=== PATIENT | female | born 1940 | race Caucasian/White ===

== ENCOUNTER 2018-03-13 10:43 | Emergency (ER) | payer MEDICARE, SELFPAY ==
[2018-03-13] VITALS (7 sets, daily range): BP systolic 90–156; BP diastolic 60–113; PULSE 80–96; RESP 16–19; TEMP 36.6; O2SAT 95–99
--- NOTE | 2018-03-13 10:49 | DI.RAD.S_ITS ---
PROCEDURE: XR LUMBAR SPINE 2-3V INDICATIONS: fall TECHNIQUE: 3 views of the lumbar spine were acquired. COMPARISON: [facility], , CHEST 1 VIEW, 11/02/2017, 12:07. [facility], , CHEST 2 VIEW, 10/16/2015, 11:47. FINDINGS: Bones: 5 [id number] vertebrae are present. There is a mild to moderate multilevel disc space narrowing throughout the lumbar spine. Significant foraminal narrowing is present at L5-S1. Presumed pain stimulator is noted overlying the lower lumbar spine. There is an approximate 35% compression deformity at L1. This is new compared to 10/16/15. No suspicious bony lesions. Soft tissues: Overlying bowel gas pattern is normal. No suspicious soft tissue calcifications. IMPRESSION: Multilevel degenerative changes. There is an approximate 35% compression deformity of indeterminate age, noting it was not visualized on the most recent prior exam of 10/16/15. Recommend correlation to focal pain and recent trauma. Dictated by: Rhonda Soto M.D. on 03/13/2018 at 11:31 Approved by: Rhonda Soto M.D. on 03/13/2018 at 11:32
--- NOTE | 2018-03-13 11:10 | DI.CT.S_ITS ---
PROCEDURE: CT HEAD/BRAIN WO CON INDICATIONS: fall on pradaxa 2 days ago difficulty walking TECHNIQUE: Noncontrast 4.5 mm thick angled axial sections acquired from the foramen magnum to the vertex, with coronal and sagittal reformats. For radiation dose reduction, the following was used: automated exposure control, adjustment of mA and/or kV according to patient size. COMPARISON: [facility], , STROKE PROTOCOL A, 06/05/2010, 11:30. FINDINGS: Image quality: Diagnostic CSF spaces: Basal cisterns are patent. No extra-axial fluid collections. Ventricles are mildly prominent. There is corresponding mild parenchymal volume loss. Brain: No midline shift. No intracranial masses or hemorrhage. Mejia-white matter interface is normal. Encephalomalacia involving the right frontal lobe is identified, best appreciated along the region of the sylvian fissure. There also is involvement of the right parietal lobe. This correlates with previously seen right MCA distribution infarction. Skull and face: Calvarium and visualized facial bones are intact, without suspicious lesions. Sinuses: Visualized sinuses and mastoids are clear. IMPRESSION: 1. No acute intracranial hemorrhage. 2. 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 3. Mild parenchymal volume loss. Dictated by: William Mcqueen M.D. on 03/13/2018 at 10:24 Approved by: William Mcqueen M.D. on 03/13/2018 at 10:25
[2018-03-13] MEDS: ACETAMINOPHEN 325 MG TABLET 650 MG PO (12:24)
[2018-03-13] MEDS: TRAMADOL 50 MG TABLET PO (12:25)
--- NOTE | 2018-03-13 12:49 | ED.FALL ---
HPI - Fall General Chief Complaint: Fall Stated Complaint: GLF / Back Pain Time Seen by Provider: 03/13/18 10:49 Source: patient, family and EMS Mode of arrival: EMS Limitations: no limitations History of Present Illness HPI Narrative: Patient is a 77-year-old female who presents with weakness and inability to get out of bed. She apparently was on the toilet yesterday when she fell. She was able to ambulate yesterday however this morning she is unable to get out of bed and needed EMS to help her. When she fell yesterday she denies any head injury. She does say that she has tenderness in her midline of her back. She has no numbness or tingling down her legs no changes in bowel or bladder habits. MD complaint: fall Onset (ago): day(s) (1) Location of injury: back Related Data Home Medications Medication Instructions Recorded Confirmed Simvastatin (Zocor) 20 mg PO QPM #0 06/04/10 03/13/18 alendronate [Fosamax] 70 mg PO QWEEK #0 11/02/17 03/13/18 dabigatran etexilate [Pradaxa] 150 mg PO BID #0 11/02/17 03/13/18 levothyroxine [Synthroid] 0.075 mg PO QAM #30 tab 11/02/17 03/13/18 lisinopril 10 mg PO QAM 03/13/18 03/13/18 metformin 500 mg PO BID 03/13/18 03/13/18 Previous Rx's Medication Instructions Recorded carvedilol [Coreg] 25 mg PO BID #60 tab 11/05/17 tramadol 50 mg PO Q4-6H PRN #20 tab 03/13/18 Allergies Allergy/AdvReac Type Severity Reaction Status Date / Time No Known Drug Allergies Allergy Verified 03/13/18 11:44 Review of Systems Review of Systems All systems reviewed & are unremarkable except as noted in HPI and below Constitutional Denies chills, Denies fever(s), Denies lethargy and Denies weakness Eyes Denies loss of vision Cardiovascular Denies chest pain, Denies irregular heart rhythm, Denies lightheadedness, Denies palpitations, Denies dyspnea, Denies dyspnea on exertion and Denies orthopnea Respiratory Denies cough, Denies dyspnea, Denies dyspnea on exertion and Denies wheezing Genitourinary Denies hematuria, Denies flank pain, Denies urinary incontinence and Denies urinary urgency Musculoskeletal Reports system reviewed and no additional complaints, except as docu and Denies numbness Neurologic Denies behavioral changes, Denies confusion, Denies loss of vision, Denies numbness and Denies weakness Psychiatric Denies behavioral changes and Denies confusion Endocrine Denies palpitations Allergic/Immunologic Denies wheezing Exam Initial Vital Signs Initial Vital Signs: Vital Signs Temperature 97.8 F 03/13/18 10:46 Pulse Rate 86 03/13/18 10:46 Respiratory Rate 16 03/13/18 10:46 Blood Pressure 156/113 H 03/13/18 10:46 Pulse Oximetry 96 03/13/18 10:46 Const General: cooperative Nutritional Appearance: well nourished Orientation: alert, awake, oriented x3 and not confused HENMD Head: normal to inspection and normocephalic Nose: external nose normal Face and sinus: normal facial exam Eyes Pupils: PERRL EOM: EOM intact bilaterally Neck Neck: full ROM, no meningeal signs and trachea midline Chest Chest: normal inspection of the chest Resp Effort & Inspection: normal respiratory effort, able to speak in complete sentences, no respiratory distress and no use of accessory muscles Auscultation: clear to auscultation bilaterally, no rales, no rhonchi and no wheezes Cardio Rate: regular rate Rhythm: regular rhythm Heart Sounds: no click, no gallops, no murmurs and no rubs Pulses: normal peripheral pulses Back/Spine/Pelvis Thoracic/Lumbar Spine: lumbar spinal tenderness (Midline L3 through L1) Skin General: no rashes or lesions noted, No jaundice and No petechiae Neuro General: alert, oriented x3, gait normal and no focal motor deficits Speech: speech normal [facility] Social History Smoking Status: Never smoker Course Orders Ordered: Discontinued Medications Acetaminophen (Tylenol) 650 mg PO NOW ONE Stop: 03/13/18 11:58 Last Admin: 03/13/18 12:24 Dose: 650 mg Tramadol HCl (Ultram) 50 mg PO NOW ONE Stop: 03/13/18 11:58 Last Admin: 03/13/18 12:25 Dose: 50 mg Vital Signs - 8 hr 03/13/18 10:46 03/13/18 10:55 03/13/18 11:35 Temperature 97.8 F 97.8 F Pulse Rate 86 83 81 Respiratory Rate 16 16 16 Blood Pressure 156/113 H Blood Pressure [Left Arm] 155/87 H 109/91 H Pulse Oximetry 96 95 96 03/13/18 12:45 Temperature Pulse Rate Respiratory Rate Blood Pressure Blood Pressure [Left Arm] 130/93 H Pulse Oximetry MDM - Fall Imaging Data CT scan - head: Radiologist's impression: PROCEDURE: CT HEAD/BRAIN WO CON INDICATIONS: fall on pradaxa 2 days ago difficulty walking TECHNIQUE: Noncontrast 4.5 mm thick angled axial sections acquired from the foramen magnum to the vertex, with coronal and sagittal reformats. For radiation dose reduction, the following was used: automated exposure control, adjustment of mA and/or kV according to patient size. COMPARISON: [facility], , STROKE PROTOCOL A, 06/05/2010, 11:30. FINDINGS: Image quality: Diagnostic CSF spaces: Basal cisterns are patent. No extra-axial fluid collections. Ventricles are mildly prominent. There is corresponding mild parenchymal volume loss. Brain: No midline shift. No intracranial masses or hemorrhage. Mejia-white matter interface is normal. Encephalomalacia involving the right frontal lobe is identified, best appreciated along the region of the sylvian fissure. There also is involvement of the right parietal lobe. This correlates with previously seen right MCA distribution infarction. Skull and face: Calvarium and visualized facial bones are intact, without suspicious lesions. Sinuses: Visualized sinuses and mastoids are clear. IMPRESSION: 1. No acute intracranial hemorrhage. 2. 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 3. Mild parenchymal volume loss. Dictated by: William Mcqueen M.D. on 03/13/2018 at 10:24 lumbar x ray: Radiologist's impression: PROCEDURE: XR LUMBAR SPINE 2-3V INDICATIONS: fall TECHNIQUE: 3 views of the lumbar spine were acquired. COMPARISON: [facility], , CHEST 1 VIEW, 11/02/2017, 12:07. [facility], , CHEST 2 VIEW, 10/16/2015, 11:47. FINDINGS: Bones: 5 [id number] vertebrae are present. There is a mild to moderate multilevel disc space narrowing throughout the lumbar spine. Significant foraminal narrowing is present at L5-S1. Presumed pain stimulator is noted overlying the lower lumbar spine. There is an approximate 35% compression deformity at L1. This is new compared to 10/16/15. No suspicious bony lesions. Soft tissues: Overlying bowel gas pattern is normal. No suspicious soft tissue calcifications. IMPRESSION: Multilevel degenerative changes. There is an approximate 35% compression deformity of indeterminate age, noting it was not visualized on the most recent prior exam of 10/16/15. Recommend correlation to focal pain and recent trauma. Dictated by: Rhonda Soto M.D. on 03/13/2018 at 11:31 MDM Narrative Medical decision making narrative: Patient does require should help sitting up hour when she is up she is able to ambulate with a walker without any difficulty. On I suspect that compression fracture noted on x-ray is new from her fall. She is tender in that area. Her pain improved some with tramadol and Toradol. Discharge Plan Departure Patient Disposition: Home, Self-Care Clinical Impression: Compression fracture Discharge Date/Time: 03/13/18 16:11 Interventions: ED Discharge Assessment Last Done: 03/13/18 16:10 Instructions: Vertebral Compression Fracture Activity Restrictions/Additional Instructions: *You have been diagnosed with vertebral compression fracture *What to do: This will take time to heal. Walk with a walker at all times, may need to sleep in a recliner. *Continue to take medications as directed -tramadol 50 mg every 6 hr if needed for severe pain -Tylenol 500-650 mg every 4-6 hours if needed for [id number]-[id number] pain *Follow up with your primary care provider in 2-3 days, [facility] should still be your physician and help you through the call Orthopedics to schedule follow-up appointment in 1-2 weeks *Return to ER if you should have numbness, tingling, increasing pain or any new, worsening or concerning symptoms Prescriptions: New tramadol 50 mg tablet 50 mg PO Q4-6H PRN (Reason: pain) Qty: 20 RF: 0 No Action Simvastatin (Zocor) 20 mg PO QPM Qty: 0 RF: 0 dabigatran etexilate [Pradaxa] 150 MG capsule 150 mg PO BID Qty: 0 RF: 0 alendronate [Fosamax] 70 MG tablet 70 mg PO QWEEK Qty: 0 RF: 0 levothyroxine [Synthroid] 75 MCG tablet 0.075 mg PO QAM Qty: 30 RF: 0 carvedilol [Coreg] 25 MG tablet 25 mg PO BID Qty: 60 RF: 5 metformin 500 mg tablet 500 mg PO BID RF: 0 lisinopril 10 mg tablet 10 mg PO QAM RF: 0 Referrals: [facility] [Outside] Tariq Davison MD [Primary Care Provider] - Derrick Dooley MD [Physician] - Buddy Cr MD [Physician] - Dionicio Galarza MD [Physician] - Elizabeth Root MD [Physician] -
== END 2018-03-13 16:11 | disposition home or self-care (01) ==
PROVIDERS: Emergency Provider Emergency Medicine; Family Provider Internal Medicine; PCP Internal Medicine
DX: S32.000A Wedge compression fracture of unspecified lumbar vertebra, initial encounter for closed fracture (principal); W18.11XA Fall from or off toilet without subsequent striking against object, initial encounter
CPT/HCPCS: 70450; 72100; 99283

== ENCOUNTER 2018-03-22 13:53 | Inpatient (IN) | payer MEDICARE, SELFPAY ==
[2018-03-22] VITALS (7 sets, daily range): BP systolic 103–135; BP diastolic 66–84; PULSE 75–105; RESP 16–18; TEMP 36.4–36.8; O2SAT 93–96; BMI 33.3; BMI 32.7
--- NOTE | 2018-03-22 14:43 | DI.RAD.S_ITS ---
PROCEDURE: XR SHOULDER RT MIN 2V INDICATIONS: fell on 03/13- possible R shoulder injury TECHNIQUE: 3 views of the shoulder were acquired. COMPARISON: [facility], , CHEST 1 VIEW, 11/02/2017, 12:07. FINDINGS: Bones: Possible right humeral neck fracture of uncertain chronicity may be non-acute. No dislocations. Mild degenerative joint disease of the acromioclavicular joint and glenohumeral joint. is present. There is prominent inferior osteophyte underneath the acromion. No suspicious bony lesions. Visualized ribs appear intact. Soft tissues: No suspicious soft tissue calcifications. IMPRESSION: 1. Possible right humeral neck fracture of uncertain chronicity. 2. Mild degenerative joint disease. 3. Large inferior osteophyte underneath the acromion, which could impinge to rotator cuff tendons. Dictated by: Will Moseley M.D. on 03/22/2018 at 15:34 Approved by: Will Moseley M.D. on 03/22/2018 at 15:37
--- NOTE | 2018-03-22 15:37 | PC.NURSE ---
DR Garcia to see pt as wants admission or sent to [facility] today
--- NOTE | 2018-03-22 15:47 | ED_ITS ---
HPI - Back Pain/Injury General Chief Complaint: Back Pain/Injury Stated Complaint: CRUSHED VERTEBRAE Time Seen by Provider: 03/22/18 15:36 Source: patient and family Mode of arrival: wheelchair Limitations: no limitations History of Present Illness HPI Narrative: 78-year-old female on Pradaxa for history of a CVA with residual left-sided weakness seen here in the emergency department approximately 10 days ago after she sustained a fall off the toilet. At that time had a head CT which was normal. Had a lumbar spine x-ray which showed an L1 compression fracture and according to the emergency physician note was painful over this area and was concerned for an acute fracture. Patient was given tramadol for home. Was discharged home. Family at bedside states that since then the patient has become more altered. Has become less mobile. States that she cannot stand cannot transition from lying in bed to sitting has had more back pain and has had less mobility in her right shoulder. No further falls since this event 10 days ago per report. No other new medications except for the tramadol. Related Data Home Medications Medication Instructions Recorded Confirmed Simvastatin (Zocor) 20 mg PO QPM #0 06/04/10 03/13/18 alendronate [Fosamax] 70 mg PO QWEEK #0 11/02/17 03/13/18 dabigatran etexilate [Pradaxa] 150 mg PO BID #0 11/02/17 03/13/18 levothyroxine [Synthroid] 0.075 mg PO QAM #30 tab 11/02/17 03/13/18 lisinopril 10 mg PO QAM 03/13/18 03/13/18 metformin 500 mg PO BID 03/13/18 03/13/18 Previous Rx's Medication Instructions Recorded carvedilol [Coreg] 25 mg PO BID #60 tab 11/05/17 tramadol 50 mg PO Q4-6H PRN #20 tab 03/13/18 Allergies Allergy/AdvReac Type Severity Reaction Status Date / Time No Known Drug Allergies Allergy Verified 03/22/18 14:13 Review of Systems Constitutional Denies chills, Reports fatigue, Denies fever(s), Denies frequent falls, Denies headache(s) and Reports lethargy Eyes Denies blurry vision and Denies diplopia ENT Ears, Nose, Mouth, and Throat: Denies vertigo, Denies dizziness, Denies headache (s), Denies mouth lesions, Denies nasal congestion and Denies sore throat Cardiovascular Denies chest pain, Denies syncope, Denies palpitations and Denies dyspnea Respiratory Denies cough, Denies dyspnea and Denies wheezing Gastrointestinal Gastrointestinal: Denies heartburn, Denies diarrhea, Denies nausea and Denies vomiting Genitourinary Reports urinary frequency Comments: Musculoskeletal Reports arthralgias (Right shoulder) and Reports limited range of motion Comments: Pain in the right shoulder with limited movement Pain in her mid lower back Increase in weakness left greater than right however bilateral lower extremities Integumentary/Breasts Denies lesions, Denies rash and Denies wounds Neurologic Denies abnormal movements, Denies abnormal speech, Reports behavioral changes, Reports confusion, Denies vertigo, Denies dizziness, Denies syncope, Denies frequent falls, Denies headache(s), Denies focal weakness and Reports memory loss Psychiatric Reports behavioral changes, Reports confusion and Reports memory loss Endocrine Reports fatigue and Denies palpitations Hematologic/Lymphatic Reports easy bleeding (On Pradaxa) Allergic/Immunologic Denies urticaria and Denies wheezing Exam Initial Vital Signs Initial Vital Signs: Vital Signs Temperature 98.2 F 03/22/18 14:08 Pulse Rate 105 H 03/22/18 14:08 Respiratory Rate 16 03/22/18 14:08 Blood Pressure 103/66 03/22/18 14:08 Pulse Oximetry 95 03/22/18 14:08 Const General: cooperative, healthy appearing, comfortable, well developed, well groomed and No acute distress Nutritional Appearance: average body habitus Orientation: alert, awake, oriented to person, not oriented to place, not oriented to time and confused (Does not know president, does not know year,) [facility] Head: normal to inspection, normocephalic and atraumatic Ears: hearing grossly normal bilaterally Face and sinus: normal facial exam Mouth: oral mucosae normal Resp Effort & Inspection: normal respiratory effort Auscultation: clear to auscultation bilaterally Cardio Rate: tachycardic Rhythm: regular rhythm Pulses: radial pulses present and dorsalis pedis present GI Inspection: non-distended Palpation: soft, No firm and No guarding Skin Lesions: no lesions Rashes: no rashes Wounds: no wounds Neuro General: alert and awake Speech: speech normal Other: Alert and oriented to person and date does not know present and does not know year does not know location does not know why she is here Moves all 4 extremities to command GCS 15 Sensation intact to light touch bilateral upper and lower extremities Extrem Other: Right elbow right wrist unremarkable Patient with limited mobility of her right shoulder in flexion extension and abduction secondary to pain Patient with tenderness to palpation over the right proximal humerus Patient able to lift her right leg off the bed approximately 4 in in hold it there Patient able to lift her left leg off the bed approximately 1 in in unable to hold it. Family states she is normally more weak on the left compared to the right but this is worse than normal Course Orders Ordered: ED Orders 03/22/18 14:43 XR shoulder RT min 2V Stat 03/22/18 16:27 CT head/brain wo con Stat CT lumbar spine wo con Stat 03/22/18 16:35 Basic Metabolic Panel Stat Complete Blood Count AUTO DIFF Stat Partial Thromboplastin Time Stat Prothrombin Time INR Stat 03/22/18 17:00 Urinalysis and Microscopic Stat Urine Culture Stat 03/22/18 18:35 Consult to Orthopedic Surgery Routine Consult to Physician Routine Ondansetron HCl (Zofran) 4 mg IV Q4HR PRN PRN Reason: Nausea And Vomiting Discontinued Medications Ceftriaxone Sodium/Dextrose (Rocephin) 1 gm in 50 mls @ 100 mls/hr IV NOW ONE Stop: 03/22/18 18:03 Last Infusion: 03/22/18 18:34 Dose: 0 mls/hr Admin: 03/22/18 18:04 Dose: 100 mls/hr Vital Signs - 8 hr 03/22/18 14:08 03/22/18 16:31 03/22/18 18:30 Temperature 98.2 F 97.6 F 98.2 F Pulse Rate 105 H 86 75 Respiratory Rate 16 18 18 Blood Pressure 103/66 Blood Pressure [Left Arm] 105/74 135/70 H Pulse Oximetry 95 93 96 MDM - Back Pain/Injury Lab Data Attestation: I reviewed the patient's lab results. Result diagrams: 03/22/18 16:35 03/22/18 16:35 Lab Results 03/22/18 03/22/18 03/22/18 Range/Units 16:35 16:35 16:35 WBC 8.7 (4.5-11.0) X10^3/uL RBC 4.23 (4.0-5.2) X10^6/uL Hgb 13.0 (12.0-16.0) g/dL Hct 38.8 (36-46) % MCV 91.6 (80-100) fL MCH 30.6 (26-34) PG MCHC 33.4 (30-36) % RDW 13.7 (11.6-14.8) % Plt Count 363 (150-400) X10^3/uL Neut % (Auto) 71.7 (50-75) % Lymph % (Auto) 19.5 L (25-40) % [place] % (Auto) 7.0 (3-14) % Eos % (Auto) 1.4 L (2-4) % Baso % (Auto) 0.4 (0-2) % Neut # (Auto) 6200 H (5043-2698) /uL PT 19.1 H (10.1-12.7) SECONDS INR 1.8 H (0.9-1.3) APTT 58 H (26.4-36.2) SECONDS Sodium 139 (137-145) mmol/L Potassium 4.5 (3.4-5.1) mmol/L Chloride 100 (98-107) mmol/L Carbon Dioxide 29 (22-32) mmol/L BUN 16 (7-17) mg/dL Creatinine 0.70 (0.52-1.04) mg/dL Estimated GFR > 60.0 (>60) mL/min BUN/Creatinine Ratio 22.9 H (6-22) Glucose 104 (80-110) mg/dL Calcium 9.2 (8.4-10.2) mg/dL Urine Color Urine Appearance Urine pH (4.5-8.0) Ur Specific [place] (1.000-1.035) Urine Protein (Negative) Urine Glucose (UA) (Normal) g/dL Urine Ketones (NEGATIVE) Urine Occult Blood (Negative) Urine Nitrate (Negative) Urine Bilirubin (NEGATIVE) Urine Urobilinogen (0.2) E.U./dL Ur Leukocyte Esterase (NEGATIVE) Urine RBC (0-5/HPF) Urine WBC (0-5/HPF) Urine Bacteria (None) Ur Culture Indicated? Micro UA Comment 03/22/18 Range/Units 17:00 WBC (4.5-11.0) X10^3/uL RBC (4.0-5.2) X10^6/uL Hgb (12.0-16.0) g/dL Hct (36-46) % MCV (80-100) fL MCH (26-34) PG MCHC (30-36) % RDW (11.6-14.8) % Plt Count (150-400) X10^3/uL Neut % (Auto) (50-75) % Lymph % (Auto) (25-40) % [place] % (Auto) (3-14) % Eos % (Auto) (2-4) % Baso % (Auto) (0-2) % Neut # (Auto) (7087-9776) /uL PT (10.1-12.7) SECONDS INR (0.9-1.3) APTT (26.4-36.2) SECONDS Sodium (137-145) mmol/L Potassium (3.4-5.1) mmol/L Chloride (98-107) mmol/L Carbon Dioxide (22-32) mmol/L BUN (7-17) mg/dL Creatinine (0.52-1.04) mg/dL Estimated GFR (>60) mL/min BUN/Creatinine Ratio (6-22) Glucose (80-110) mg/dL Calcium (8.4-10.2) mg/dL Urine Color Yellow Urine Appearance Turbid Urine pH 5.0 (4.5-8.0) Ur Specific [place] 1.015 (1.000-1.035) Urine Protein 2+ H (Negative) Urine Glucose (UA) Negative (Normal) g/dL Urine Ketones Trace H (NEGATIVE) Urine Occult Blood 2+ H (Negative) Urine Nitrate Negative (Negative) Urine Bilirubin Negative (NEGATIVE) Urine Urobilinogen 0.2 (0.2) E.U./dL Ur Leukocyte Esterase 2+ H (NEGATIVE) Urine RBC 30-100/hpf H (0-5/HPF) Urine WBC >100/hpf H (0-5/HPF) Urine Bacteria Many (>30) H (None) Ur Culture Indicated? Specimen cultured Micro UA Comment Not Reportable Imaging Data Lumbar spine CT: Radiologist's impression: PROCEDURE: CT LUMBAR SPINE WO CON INDICATIONS: Fall W/lumbar spine fracture, worsening LE weak TECHNIQUE: Noncontrast 3 mm thick sections acquired from the T12 level to the sacrum. Sagittal and coronal reformats were constructed. For radiation dose reduction, the following was used: automated exposure control. COMPARISON: [facility], CR, XR LUMBAR SPINE 2-3V, 03/13/2018, 10:50. FINDINGS: Image quality: Excellent. Bones: There is normal bony alignment. There is acute severe vertebral body compression fracture involving L1, increasing in severity compared to the lumbar spine x- ray dated 03/13/2018. No suspicious lytic or blastic bony lesions. Mild degenerative disc disease and moderate to severe facet arthropathy lumbar spine. Central spinal caliber is of normal overall caliber. No pars defects. Soft tissues: No retroperitoneal masses. Mild prevertebral soft tissue thickening anterior to L1 is consistent with small paravertebral hematoma. Visualized aorta is normal in caliber, which demonstrates severe atherosclerosis. There are multiple gallstones. Scant colonic diverticula. Bladder wall appears mildly thickened but the bladder is not fully distended. Bibasilar atelectasis. IMPRESSION: 1. Acute severe vertebral body compression fracture of L1, increased in since . There is no significant posterior displacement. 2. Mild prevertebral soft tissue thickening is consistent with small paravertebral hematoma. 3. Cholelithiasis. 4. Severe atherosclerosis. Dictated by: Will Moseley M.D. on 03/22/2018 at 17:11 CT scan - head: Radiologist's impression: PROCEDURE: CT HEAD/BRAIN WO CON INDICATIONS: On Pradaxa fall several days ago worsening confusion TECHNIQUE: Noncontrast 4.5 mm thick angled axial sections acquired from the foramen magnum to the vertex, with coronal and sagittal reformats. For radiation dose reduction, the following was used: automated exposure control, adjustment of mA and/or kV according to patient size. COMPARISON: [facility], CT, CT HEAD/BRAIN WO CON, 03/13/2018, 11:02. FINDINGS: Image quality: Significant motion artifacts are present. CSF spaces: Basal cisterns are patent. No extra-axial fluid collections. The ventricles are symmetric in size and shape. Brain: Large right MCA infarct appears unchanged. No intracranial bleeds or masses. There is cerebral volume loss for age, with resultant ventricular and sulcal prominence. There are periventricular and deep white matter chronic small vessel ischemic changes. There is intracranial internal carotid artery atherosclerosis. Skull and face: Calvarium and visualized facial bones appear intact, without suspicious lesions. Sinuses: Visualized sinuses and mastoids are clear. IMPRESSION: 1. No acute intracranial abnormalities. 2. Large right MCA infarct appears unchanged. 3. Cerebral volume loss and chronic microvascular ischemic changes. Dictated by: Will Moseley M.D. on 03/22/2018 at 17:09 Approved by: Will Moseley M.D. on 03/22/2018 at 17:11 Right shoulder x-ray: Radiologist's impression: PROCEDURE: XR SHOULDER RT MIN 2V INDICATIONS: fell on 03/13- possible R shoulder injury TECHNIQUE: 3 views of the shoulder were acquired. COMPARISON: [facility], , CHEST 1 VIEW, 11/02/2017, 12:07. FINDINGS: Bones: Possible right humeral neck fracture of uncertain chronicity may be non- acute. No dislocations. Mild degenerative joint disease of the acromioclavicular joint and glenohumeral joint. is present. There is prominent inferior osteophyte underneath the acromion. No suspicious bony lesions. Visualized ribs appear intact. Soft tissues: No suspicious soft tissue calcifications. IMPRESSION: 1. Possible right humeral neck fracture of uncertain chronicity. 2. Mild degenerative joint disease. 3. Large inferior osteophyte underneath the acromion, which could impinge to rotator cuff tendons. Dictated by: Will Moseley M.D. on 03/22/2018 at 15:34 Approved by: Will Moseley M.D. on 03/22/2018 at 15:37 MDM Narrative Medical decision making narrative: Secondary to the decreased mental status over the past 10 days that feel that the tramadol that she was sent home may be a part of this. She also has signs of a urinary tract infection on the urinalysis. She was given Rocephin here in the emergency department. This could also be contributing to her altered mental status. Repeat head CT does not show any changes from the 1 done 10 days ago. L1 spinal compression fracture worsening compared to x-ray from 10 days ago. Patient is unable to transition from lying to sitting or sitting to standing unable to ambulate at home and unable to move her left lower extremity that is worsening according to family over the past 10 days. She has no bowel or bladder incontinence. Is able to flex and extend her ankles however left side is weaker than the right side. Discussed case with Dr. Galarza with Internal Medicine who will admit. I did discuss the case with Dr. Saha with Orthopedics who will evaluate the patient tomorrow. Informed the patient and the family of the admission. They expressed understanding and agreement with plan. Discharge Plan Departure Patient Disposition: Admitted As Inpatient Clinical Impression: Closed compression fracture of L1 lumbar vertebra, Urinary tract infection, Acute alteration in mental status, Closed right humeral fracture
--- NOTE | 2018-03-22 16:02 | PC.NURSE ---
Attempt for IV x2. Unsuccessful.
--- NOTE | 2018-03-22 16:27 | DI.CT.S_ITS ---
PROCEDURE: CT HEAD/BRAIN WO CON INDICATIONS: On Pradaxa fall several days ago worsening confusion TECHNIQUE: Noncontrast 4.5 mm thick angled axial sections acquired from the foramen magnum to the vertex, with coronal and sagittal reformats. For radiation dose reduction, the following was used: automated exposure control, adjustment of mA and/or kV according to patient size. COMPARISON: [facility], CT, CT HEAD/BRAIN WO CON, 03/13/2018, 11:02. FINDINGS: Image quality: Significant motion artifacts are present. CSF spaces: Basal cisterns are patent. No extra-axial fluid collections. The ventricles are symmetric in size and shape. Brain: Large right MCA infarct appears unchanged. No intracranial bleeds or masses. There is cerebral volume loss for age, with resultant ventricular and sulcal prominence. There are periventricular and deep white matter chronic small vessel ischemic changes. There is intracranial internal carotid artery atherosclerosis. Skull and face: Calvarium and visualized facial bones appear intact, without suspicious lesions. Sinuses: Visualized sinuses and mastoids are clear. IMPRESSION: 1. No acute intracranial abnormalities. 2. Large right MCA infarct appears unchanged. 3. Cerebral volume loss and chronic microvascular ischemic changes. Dictated by: Will Moseley M.D. on 03/22/2018 at 17:09 Approved by: Will Moseley M.D. on 03/22/2018 at 17:11
--- NOTE | 2018-03-22 16:27 | DI.CT.S_ITS ---
PROCEDURE: CT LUMBAR SPINE WO CON INDICATIONS: Fall W/lumbar spine fracture, worsening LE weak TECHNIQUE: Noncontrast 3 mm thick sections acquired from the T12 level to the sacrum. Sagittal and coronal reformats were constructed. For radiation dose reduction, the following was used: automated exposure control. COMPARISON: [facility], CR, XR LUMBAR SPINE 2-3V, 03/13/2018, 10:50. FINDINGS: Image quality: Excellent. Bones: There is normal bony alignment. There is acute severe vertebral body compression fracture involving L1, increasing in severity compared to the lumbar spine x-ray dated 03/13/2018. No suspicious lytic or blastic bony lesions. Mild degenerative disc disease and moderate to severe facet arthropathy lumbar spine. Central spinal caliber is of normal overall caliber. No pars defects. Soft tissues: No retroperitoneal masses. Mild prevertebral soft tissue thickening anterior to L1 is consistent with small paravertebral hematoma. Visualized aorta is normal in caliber, which demonstrates severe atherosclerosis. There are multiple gallstones. Scant colonic diverticula. Bladder wall appears mildly thickened but the bladder is not fully distended. Bibasilar atelectasis. IMPRESSION: 1. Acute severe vertebral body compression fracture of L1, increased in since 03/13/2018. There is no significant posterior displacement. 2. Mild prevertebral soft tissue thickening is consistent with small paravertebral hematoma. 3. Cholelithiasis. 4. Severe atherosclerosis. Dictated by: Will Moseley M.D. on 03/22/2018 at 17:11 Approved by: Will Moseley M.D. on 03/22/2018 at 17:20
[2018-03-22 16:44] LABS: Add Manual Diff / Slide Review NO; Basophils Percent Auto 0.4 % (0-2); Eosinophils Percent Auto 1.4 % (2-4); Hematocrit 38.8 % (36-46); Lymphocytes Percent Auto 19.5 % (25-40); Mean Corpuscular HGB Conc 33.4 % (30-36); Mean Corpuscular Hemoglobin 30.6 PG (26-34); Mean Corpuscular Volume 91.6 fL (80-100); Neutrophils Absolute Auto 6200 /uL (3000-5900); Neutrophils Percent Auto 71.7 % (50-75); Platelet Count 363 X10^3/uL (150-400); Red Blood Cell Count 4.23 X10^6/uL (4.0-5.2); Red Cell Distribution Width 13.7 % (11.6-14.8); White Blood Cell Count 8.7 X10^3/uL (4.5-11.0)
[2018-03-22 16:53] LABS: INR 1.8 (0.9-1.3); Prothrombin Time 19.1 SECONDS (10.1-12.7)
[2018-03-22 16:55] LABS: PTT Partial Thromboplastin Tim 58 SECONDS (26.4-36.2)
[2018-03-22 16:57] LABS: BUN Creatinine Ratio 22.9 (6-22); Blood Urea Nitrogen 16 mg/dL (7-17); Calcium 9.2 mg/dL (8.4-10.2); Carbon Dioxide 29 mmol/L (22-32); Chloride 100 mmol/L (98-107); Estimated Glomerular Filt Rate > 60.0 mL/min (>60); Glucose 104 mg/dL (80-110); HEMOLYSIS < 15 (0-50); Potassium 4.5 mmol/L (3.4-5.1); Sodium 139 mmol/L (137-145)
[2018-03-22 17:10] LABS: Appearance Urine UA TURBID; Bilirubin Urine UA NEGATIVE (NEGATIVE); Color Urine UA YELLOW; Glucose Urine UA NEGATIVE (Normal); Ketones Urine UA TRACE (NEGATIVE); Leukocyte Esterase Urine UA 2+ (NEGATIVE); Nitrite Urine UA Negative (Negative); Occult Blood Urine UA 2+ (Negative); Protein Urine UA 2+ (Negative); Specific Gravity Urine UA 1.015 (1.000-1.035); Urobilinogen Urine UA 0.2 E.U./dL (0.2)
[2018-03-22 17:24] LABS: Bacteria Urine Many (>30); Culture Indicated Urine Specimen Cultured; RBC Urine 30-100/HPF (0-5/HPF); WBC Urine >100/HPF (0-5/HPF)
[2018-03-22] MEDS: CEFTRIAXONE 1 GM/50 ML FROZ.PIGGY IV (18:04)
--- NOTE | 2018-03-22 18:22 | PC.NURSE ---
Pt hx of cva. Family states she uses her rt arm for transfers and has had worsening pain when using.
--- NOTE | 2018-03-22 18:43 | PC.NURSE ---
Took PM meds
--- NOTE | 2018-03-22 19:30 | PM.CN ---
History of Present Illness Chief complaint: CRUSHED VERTEBRAE Reason for consult: L1 compression fracture, intractable pain. R proximal humerus fracture Requesting provider: Dionicio Galarza Narrative: 78 yo F with a PMH significant for a R MCA stroke (L sided weakness) on pradaxa presents with intractable back pain. She had a fall off a toilet 03/13 and was seen in ER and diagnosis with a L1 comp fx. She was dc'd home but per family has been getting worse with uncontrolled pain and increased weakness adn difficulty sitting up or standing. pain is better controlled lying down. On Imaging 03/22 she was found to have progression of her L1 compression fracture as well as a R proximal humerus fx of unknown age-but likely occurred 2 weeks ago with her fall-as the patient states it has been bothering her for about that long-she does endorse that she has always had decreased range of motion the right shoulder compared to the left. She also had a acute UTI. She was admitted to Internal Medicine for pain control and orthopedic surgery was consulted regarding management. REPLACED BY [facility] Medical History A-fib (Chronic) Diabetes (Chronic) High cholesterol (Chronic) History of hysterectomy (Chronic) History of thyroidectomy (Chronic) Hypertension (Chronic) Osteoporosis (Chronic) Stroke (Chronic) Deep venous thrombosis (DVT) of both peroneal veins (Resolved) Surgical History Hx of tonsillectomy (Chronic) Social History household members: spouse Smoking Status: Never smoker alcohol intake: never Meds Home Medications Medication Instructions Recorded Confirmed Type simvastatin 20 mg PO QPM #0 06/04/10 03/22/18 History alendronate [Fosamax] 70 mg PO QWEEK #0 11/02/17 03/22/18 History dabigatran etexilate [Pradaxa] 150 mg PO BID #0 11/02/17 03/22/18 History levothyroxine [Synthroid] 0.075 mg PO QAM #30 tab 11/02/17 03/22/18 History carvedilol [Coreg] 25 mg PO BID #60 tab 11/05/17 03/22/18 Rx lisinopril 10 mg PO QAM 03/13/18 03/22/18 History metformin 500 mg PO BID 03/13/18 03/22/18 History tramadol 50 mg PO Q4-6H PRN #20 tab 03/13/18 03/22/18 Rx Allergies Allergy/AdvReac Type Severity Reaction Status Date / Time No Known Drug Allergies Allergy Verified 03/22/18 14:13 Review of Systems Review of Systems Review of systems somewhat difficult due to patient recollection. She does endorse musculoskeletal pain and back pain somewhere between 2 and 4 weeks and shoulder pain approximately 2 weeks. She states she had 1 fall approximately 2 weeks ago. She denies any numbness or tingling denies nausea vomiting fever or chills. However the 3rd notes that apparently the patient has been more confused lately according to family possibly due to pain medication. Does endorse increased urinary frequency. Remainder review of systems unremarkable Exam Vital Signs (past 8 hours): - 03/22/18 14:08 03/22/18 16:31 03/22/18 18:30 Temperature 98.2 F 97.6 F 98.2 F Pulse Rate 105 H 86 75 Respiratory Rate 16 18 18 Blood Pressure 103/66 Blood Pressure [Left Arm] 105/74 135/70 H Pulse Oximetry 95 93 96 Oxygen Delivery Method Room Air Narrative Exam Narrative: General examination: Patient is alert and conversant, mild confusion. Appears comfortable in bed. No complaints this morning. States pain is improved with medication. HEENT exam: Normocephalic atraumatic Respiratory exam: Nonlabored on room air, lungs clear to auscultation Heart: Irregular rate and rhythm Abdomen: Soft nontender Musculoskeletal: Left upper extremity- painless normal shoulder range of motion with forward flexion above 90? in bed. 5/5 shoulder flexion biceps flexion and triceps. Sensation intact to light touch actually radial median ulnar nerves. 5/5 instructor psychiatric aide strength Right upper extremity: Mild pain with palpation around the humeral head and neck. Patient demonstrates forward flexion approximately 80?. Able to externally rotate 45 deg, full elbow flexion and extension 5/5 biceps and triceps strength. 5/5 wrist extension and wrist flexion and instructor psychiatric aide strength. Sensation intact axillary radial ulnar median nerves. Palpable radial pulse. Bilateral lower extremity: Demonstrates good strength with knee flexion and knee extension dorsiflexion plantar flexion mild edema bilateral lower extremities. Palpable dorsalis pedis pulse. Sensation grossly intact to light touch. Negative straight leg raise bilaterally. Spine examination: Mild tenderness to palpation midline at the lumbar thoracic junction. Objective Imaging ct scan L spine: My impression: L1 compression fracture, approximately 50% height loss, no significant retropulsion. calcification at aorta Radiologist's impression: IMPRESSION: 1. Acute severe vertebral body compression fracture of L1, increased in since 03/13/2018. There is no significant posterior displacement. 2. Mild prevertebral soft tissue thickening is consistent with small paravertebral hematoma. 3. Cholelithiasis. 4. Severe atherosclerosis. XR R shoulder: My impression: Right proximal humerus fracture, unclear acuity. nondisplaced. degenerative changes and spurring acromion Radiologist's impression: IMPRESSION: 1. Possible right humeral neck fracture of uncertain chronicity. 2. Mild degenerative joint disease. 3. Large inferior osteophyte underneath the acromion, which could impinge to rotator cuff tendons. Dictated by: Will Moseley M.D. on 03/22/2018 at 15:34 Labs Result Diagrams: 03/22/18 16:35 03/22/18 16:35 Labs: Laboratory Results - last 24 hr 03/22/18 03/22/18 03/22/18 16:35 16:35 16:35 WBC 8.7 RBC 4.23 Hgb 13.0 Hct 38.8 MCV 91.6 MCH 30.6 MCHC 33.4 RDW 13.7 Plt Count 363 Neut % (Auto) 71.7 Lymph % (Auto) 19.5 L [place] % (Auto) 7.0 Eos % (Auto) 1.4 L Baso % (Auto) 0.4 Neut # (Auto) 6200 H PT 19.1 H INR 1.8 H APTT 58 H Sodium 139 Potassium 4.5 Chloride 100 Carbon Dioxide 29 BUN 16 Creatinine 0.70 Estimated GFR > 60.0 BUN/Creatinine Ratio 22.9 H Glucose 104 Calcium 9.2 Urine Color Urine Appearance Urine pH Ur Specific [place] Urine Protein Urine Glucose (UA) Urine Ketones Urine Occult Blood Urine Nitrate Urine Bilirubin Urine Urobilinogen Ur Leukocyte Esterase Urine RBC Urine WBC Urine Bacteria Ur Culture Indicated? Micro UA Comment 03/22/18 17:00 WBC RBC Hgb Hct MCV MCH MCHC RDW Plt Count Neut % (Auto) Lymph % (Auto) [place] % (Auto) Eos % (Auto) Baso % (Auto) Neut # (Auto) PT INR APTT Sodium Potassium Chloride Carbon Dioxide BUN Creatinine Estimated GFR BUN/Creatinine Ratio Glucose Calcium Urine Color Yellow Urine Appearance Turbid Urine pH 5.0 Ur Specific [place] 1.015 Urine Protein 2+ H Urine Glucose (UA) Negative Urine Ketones Trace H Urine Occult Blood 2+ H Urine Nitrate Negative Urine Bilirubin Negative Urine Urobilinogen 0.2 Ur Leukocyte Esterase 2+ H Urine RBC 30-100/hpf H Urine WBC >100/hpf H Urine Bacteria Many (>30) H Ur Culture Indicated? Specimen cultured Micro UA Comment Not Reportable Assessment & Plan Plan: Assessment/Plan Narrative: 1. L1 compression fracture: fall on 03/13 with L1 comp fx on XR, now admitted with uncontrolled pain and possible increased height loss, now approx 50% on CT. Discussed options for pain control including bracing-lumbar corset for comfort, pain medications and intranasal calcitonin -200 international units daily-alternate nares. Discussed imaging with spinal surgeons regarding possible kyphoplasty. Patient is on Pradaxa and would require holding this medication or bridge if needed. --Discussed with Dr. Cr --Spine- possible add on for kyphoplasty Saturday 03/24--request hold pradaxa starting now- communicated to nurse. NPO Friday night at [place]. Patient states pain is controlled in bed this morning however does not appear she has been out of bed yet. The lumbar curve 2nd be used for comfort, and will see how she does getting out of bed today with nursing and therapy-if this causes her significant pain then she would be a candidate for a kyphoplasty tomorrow. If she does well she could be potentially discharge home with pain control modalities. 2. Right proximal humerus fracture: unclear acuity but likely about 2-week-old- but nonoperative pattern, recommend initial sling as needed -if pain at rest controlled with out sling -then may discontinue. start pendulum exercises 3x daily to avoid stiffness, then gentle ROM as tolerated. ROM may be compromised by prexisting acromial osteophyte -impingement. Follow-up 2 weeks for repeat [id number] of therapy 3. UTI care per primary
--- NOTE | 2018-03-22 19:46 | P.CONS_ITS ---
History of Present Illness Chief complaint: CRUSHED VERTEBRAE Reason for consult: L1 compression fracture, intractable pain. R proximal humerus fracture Requesting provider: Dionicio Galarza Narrative: 78 yo F with a PMH significant for a R MCA stroke (L sided weakness) on pradaxa presents with intractable back pain. She had a fall off a toilet and was seen in ER and diagnosis with a L1 comp fx. She was dc'd home but per family has been getting worse with uncontrolled pain and increased weakness adn difficulty sitting up or standing. pain is better controlled lying down. On Imaging 03/22 she was found to have progression of her L1 compression fracture as well as a R proximal humerus fx of unknown age-but likely occurred 2 weeks ago with her fall-as the patient states it has been bothering her for about that long-she does endorse that she has always had decreased range of motion the right shoulder compared to the left. She also had a acute UTI. She was admitted to Internal Medicine for pain control and orthopedic surgery was consulted regarding management. [facility] Medical History A-fib (Chronic) Diabetes (Chronic) High cholesterol (Chronic) History of hysterectomy (Chronic) History of thyroidectomy (Chronic) Hypertension (Chronic) Osteoporosis (Chronic) Stroke (Chronic) Deep venous thrombosis (DVT) of both peroneal veins (Resolved) Surgical History Hx of tonsillectomy (Chronic) Social History household members: spouse Smoking Status: Never smoker alcohol intake: never Meds Home Medications Medication Instructions Recorded Confirmed Type simvastatin 20 mg PO QPM #0 06/04/10 03/22/18 History alendronate [Fosamax] 70 mg PO QWEEK #0 11/02/17 03/22/18 History dabigatran etexilate [Pradaxa] 150 mg PO BID #0 11/02/17 03/22/18 History levothyroxine [Synthroid] 0.075 mg PO QAM #30 tab 11/02/17 03/22/18 History carvedilol [Coreg] 25 mg PO BID #60 tab 11/05/17 03/22/18 Rx lisinopril 10 mg PO QAM 03/13/18 03/22/18 History metformin 500 mg PO BID 03/13/18 03/22/18 History tramadol 50 mg PO Q4-6H PRN #20 tab 03/13/18 03/22/18 Rx Allergies Allergy/AdvReac Type Severity Reaction Status Date / Time No Known Drug Allergies Allergy Verified 03/22/18 14:13 Review of Systems Review of Systems Review of systems somewhat difficult due to patient recollection. She does endorse musculoskeletal pain and back pain somewhere between 2 and 4 weeks and shoulder pain approximately 2 weeks. She states she had 1 fall approximately 2 weeks ago. She denies any numbness or tingling denies nausea vomiting fever or chills. However the 3rd notes that apparently the patient has been more confused lately according to family possibly due to pain medication. Does endorse increased urinary frequency. Remainder review of systems unremarkable Exam Vital Signs (past 8 hours): - 03/22/18 14:08 03/22/18 16:31 03/22/18 18:30 Temperature 98.2 F 97.6 F 98.2 F Pulse Rate 105 H 86 75 Respiratory Rate 16 18 18 Blood Pressure 103/66 Blood Pressure [Left Arm] 105/74 135/70 H Pulse Oximetry 95 93 96 Oxygen Delivery Method Room Air Narrative Exam Narrative: General examination: Patient is alert and conversant, mild confusion. Appears comfortable in bed. No complaints this morning. States pain is improved with medication. HEENT exam: Normocephalic atraumatic Respiratory exam: Nonlabored on room air, lungs clear to auscultation Heart: Irregular rate and rhythm Abdomen: Soft nontender Musculoskeletal: Left upper extremity- painless normal shoulder range of motion with forward flexion above 90? in bed. 5/5 shoulder flexion biceps flexion and triceps. Sensation intact to light touch actually radial median ulnar nerves. 5/5 vmware systems administrator strength Right upper extremity: Mild pain with palpation around the humeral head and neck. Patient demonstrates forward flexion approximately 80?. Able to externally rotate 45 deg, full elbow flexion and extension 5/5 biceps and triceps strength. 5/5 wrist extension and wrist flexion and vmware systems administrator strength. Sensation intact axillary radial ulnar median nerves. Palpable radial pulse. Bilateral lower extremity: Demonstrates good strength with knee flexion and knee extension dorsiflexion plantar flexion mild edema bilateral lower extremities. Palpable dorsalis pedis pulse. Sensation grossly intact to light touch. Negative straight leg raise bilaterally. Spine examination: Mild tenderness to palpation midline at the lumbar thoracic junction. Objective Imaging ct scan L spine: My impression: L1 compression fracture, approximately 50% height loss, no significant retropulsion. calcification at aorta Radiologist's impression: IMPRESSION: 1. Acute severe vertebral body compression fracture of L1, increased in since . There is no significant posterior displacement. 2. Mild prevertebral soft tissue thickening is consistent with small paravertebral hematoma. 3. Cholelithiasis. 4. Severe atherosclerosis. XR R shoulder: My impression: Right proximal humerus fracture, unclear acuity. nondisplaced. degenerative changes and spurring acromion Radiologist's impression: IMPRESSION: 1. Possible right humeral neck fracture of uncertain chronicity. 2. Mild degenerative joint disease. 3. Large inferior osteophyte underneath the acromion, which could impinge to rotator cuff tendons. Dictated by: Will Moseley M.D. on 03/22/2018 at 15:34 Labs Result Diagrams: 03/22/18 16:35 03/22/18 16:35 Labs: Laboratory Results - last 24 hr 03/22/18 03/22/18 03/22/18 16:35 16:35 16:35 WBC 8.7 RBC 4.23 Hgb 13.0 Hct 38.8 MCV 91.6 MCH 30.6 MCHC 33.4 RDW 13.7 Plt Count 363 Neut % (Auto) 71.7 Lymph % (Auto) 19.5 L [place] % (Auto) 7.0 Eos % (Auto) 1.4 L Baso % (Auto) 0.4 Neut # (Auto) 6200 H PT 19.1 H INR 1.8 H APTT 58 H Sodium 139 Potassium 4.5 Chloride 100 Carbon Dioxide 29 BUN 16 Creatinine 0.70 Estimated GFR > 60.0 BUN/Creatinine Ratio 22.9 H Glucose 104 Calcium 9.2 Urine Color Urine Appearance Urine pH Ur Specific [place] Urine Protein Urine Glucose (UA) Urine Ketones Urine Occult Blood Urine Nitrate Urine Bilirubin Urine Urobilinogen Ur Leukocyte Esterase Urine RBC Urine WBC Urine Bacteria Ur Culture Indicated? Micro UA Comment 03/22/18 17:00 WBC RBC Hgb Hct MCV MCH MCHC RDW Plt Count Neut % (Auto) Lymph % (Auto) [place] % (Auto) Eos % (Auto) Baso % (Auto) Neut # (Auto) PT INR APTT Sodium Potassium Chloride Carbon Dioxide BUN Creatinine Estimated GFR BUN/Creatinine Ratio Glucose Calcium Urine Color Yellow Urine Appearance Turbid Urine pH 5.0 Ur Specific [place] 1.015 Urine Protein 2+ H Urine Glucose (UA) Negative Urine Ketones Trace H Urine Occult Blood 2+ H Urine Nitrate Negative Urine Bilirubin Negative Urine Urobilinogen 0.2 Ur Leukocyte Esterase 2+ H Urine RBC 30-100/hpf H Urine WBC >100/hpf H Urine Bacteria Many (>30) H Ur Culture Indicated? Specimen cultured Micro UA Comment Not Reportable Assessment & Plan Plan: Assessment/Plan Narrative: 1. L1 compression fracture: fall on 03/13 with L1 comp fx on XR, now admitted with uncontrolled pain and possible increased height loss, now approx 50% on CT. Discussed options for pain control including bracing-lumbar corset for comfort, pain medications and intranasal calcitonin -200 international units daily-alternate nares. Discussed imaging with spinal surgeons regarding possible kyphoplasty. Patient is on Pradaxa and would require holding this medication or bridge if needed. --Discussed with Dr. Cr --Spine- possible add on for kyphoplasty Saturday 03/24--request hold pradaxa starting now- communicated to nurse. NPO Friday night at [place]. Patient states pain is controlled in bed this morning however does not appear she has been out of bed yet. The lumbar curve 2nd be used for comfort, and will see how she does getting out of bed today with nursing and therapy-if this causes her significant pain then she would be a candidate for a kyphoplasty tomorrow. If she does well she could be potentially discharge home with pain control modalities. 2. Right proximal humerus fracture: unclear acuity but likely about 2-week-old- but nonoperative pattern, recommend initial sling as needed -if pain at rest controlled with out sling -then may discontinue. start pendulum exercises 3x daily to avoid stiffness, then gentle ROM as tolerated. ROM may be compromised by prexisting acromial osteophyte -impingement. Follow-up 2 weeks for repeat x- ray-advancement of therapy 3. UTI care per primary
--- NOTE | 2018-03-22 20:40 | PM.HP.1 ---
History of Present Illness Date Patient Seen: 03/22/18 Time Patient Seen: 20:40 Chief complaint: CRUSHED VERTEBRAE Narrative: 78-year-old female presents with increasing back pain and weakness and shoulder pain. She fell back on March 13 seen in the ER diagnosed with a compression fracture and over the course of the last weeks been having increasing pain in the back and noticing increasing pain in the shoulder area and today had episode where she slumped or fell again because of just generalized weakness and had some sweats maybe some fever and chills were noted so was brought into the emergency room where a fracture was noted on the humerus humeral neck fracture was noted. She complains of just generalized weakness she does have a previous history of stroke and low bit weaker on the left that is chronic. Family also noted she has been increasingly confused recently basically since she started taking tramadol for her pain for her back. Patient History Medical History A-fib (Chronic) Diabetes (Chronic) High cholesterol (Chronic) History of hysterectomy (Chronic) History of thyroidectomy (Chronic) Hypertension (Chronic) Osteoporosis (Chronic) Stroke (Chronic) Deep venous thrombosis (DVT) of both peroneal veins (Resolved) Surgical History Hx of tonsillectomy (Chronic) Family & Social History Social History: household members spouse Prior Living Arrangements House Safety & Behavioral: Feels Safe in Current Yes Environment Been Physically Hurt or No Threatened By a Person Suicidal Ideation Description None Tobacco & Substance use: Smoking Status Never smoker alcohol intake never Substance Use Type does not use Meds Home Medications Medication Instructions Recorded Confirmed Type simvastatin 20 mg PO QPM #0 06/04/10 03/22/18 History alendronate [Fosamax] 70 mg PO QWEEK #0 11/02/17 03/22/18 History dabigatran etexilate [Pradaxa] 150 mg PO BID #0 11/02/17 03/22/18 History levothyroxine [Synthroid] 0.075 mg PO QAM #30 tab 11/02/17 03/22/18 History carvedilol [Coreg] 25 mg PO BID #60 tab 11/05/17 03/22/18 Rx lisinopril 10 mg PO QAM 03/13/18 03/22/18 History metformin 500 mg PO BID 03/13/18 03/22/18 History tramadol 50 mg PO Q4-6H PRN #20 tab 03/13/18 03/22/18 Rx Allergies Allergy/AdvReac Type Severity Reaction Status Date / Time No Known Drug Allergies Allergy Verified 03/22/18 14:13 Review of Systems Review of Systems All systems reviewed & are unremarkable except as noted in HPI and below Exam Vital Signs (past 8 hours): - 03/22/18 14:08 03/22/18 16:31 03/22/18 18:30 Temperature 98.2 F 97.6 F 98.2 F Pulse Rate 105 H 86 75 Respiratory Rate 18 Blood Pressure 103/66 Blood Pressure [Left Arm] 105/74 135/70 H Pulse Oximetry 95 93 96 Oxygen Delivery Method Room Air Narrative Exam Narrative: Pleasant elderly female very talkative no acute distress pleasant HEENT exam unremarkable oropharynx clear Neck is supple Lungs Clear to auscultation Heart irregular Abdomen soft nontender Lower extremities 1+ edema bilateral Neuro exam awake alert speech seems to be normal her motor strength seems to be also normal to bedside testing. Skin warm and dry Objective Labs Result Diagrams: 03/22/18 16:35 03/22/18 16:35 Labs: Laboratory Results - last 24 hr 03/22/18 03/22/18 03/22/18 16:35 16:35 16:35 WBC 8.7 RBC 4.23 Hgb 13.0 Hct 38.8 MCV 91.6 MCH 30.6 MCHC 33.4 RDW 13.7 Plt Count 363 Neut % (Auto) 71.7 Lymph % (Auto) 19.5 L [place] % (Auto) 7.0 Eos % (Auto) 1.4 L Baso % (Auto) 0.4 Neut # (Auto) 6200 H PT 19.1 H INR 1.8 H APTT 58 H Sodium 139 Potassium 4.5 Chloride 100 Carbon Dioxide 29 BUN 16 Creatinine 0.70 Estimated GFR > 60.0 BUN/Creatinine Ratio 22.9 H Glucose 104 Calcium 9.2 Urine Color Urine Appearance Urine pH Ur Specific [place] Urine Protein Urine Glucose (UA) Urine Ketones Urine Occult Blood Urine Nitrate Urine Bilirubin Urine Urobilinogen Ur Leukocyte Esterase Urine RBC Urine WBC Urine Bacteria Ur Culture Indicated? Micro UA Comment 03/22/18 17:00 WBC RBC Hgb Hct MCV MCH MCHC RDW Plt Count Neut % (Auto) Lymph % (Auto) [place] % (Auto) Eos % (Auto) Baso % (Auto) Neut # (Auto) PT INR APTT Sodium Potassium Chloride Carbon Dioxide BUN Creatinine Estimated GFR BUN/Creatinine Ratio Glucose Calcium Urine Color Yellow Urine Appearance Turbid Urine pH 5.0 Ur Specific [place] 1.015 Urine Protein 2+ H Urine Glucose (UA) Negative Urine Ketones Trace H Urine Occult Blood 2+ H Urine Nitrate Negative Urine Bilirubin Negative Urine Urobilinogen 0.2 Ur Leukocyte Esterase 2+ H Urine RBC 30-100/hpf H Urine WBC >100/hpf H Urine Bacteria Many (>30) H Ur Culture Indicated? Specimen cultured Micro UA Comment Not Reportable Assessment & Plan Plan: Assessment/Plan Narrative: One. Compression fracture L1 CT done today shows worsening of the compression fracture. It is definitely increased from March 13. There is no significant posterior displacement however. Orthopedics will be consulted regarding possible kyphoplasty. Miesha plan to place her on me a callus in and physical therapy pain control will try to avoid narcotics and Ultram that made her confused so for now will place her on some Toradol 2. Urinary tract infection she is afebrile and has a normal white count but has urine significant for infection as this could be causing some of her generalized weakness and will place her on some IV fluids and IV antibiotics she a dose of ceftriaxone in the ER that will continue 3. Proximal humeral fracture nondisplaced plan to ask orthopedics for consult regarding this 4. Some increased in confusion acute metabolic encephalopathy probably secondary to the Ultram also could be due to urinary infection. Plan to hold the Ultram 5. History of hypertension on lisinopril carvedilol those will continue 6. Diabetes type 2 plan to continue metformin 7. Chronic AFib on chronic anticoagulation plan to hold the Pradaxa for now for possible intervention by Ortho 8. Code status she desires to be full code but she is still thinking about this
[2018-03-22] MEDS: SODIUM CHLORIDE 0.9% 1,000 ML 100 ML IV (21:13)
[2018-03-22] MEDS: KETOROLAC 30 MG/ML VIAL IV (23:49)
[2018-03-23] VITALS (7 sets, daily range): BP systolic 113–145; BP diastolic 60–97; PULSE 79–96; RESP 16–18; TEMP 36–37.2; O2SAT 92–97; BMI 32.5
--- NOTE | 2018-03-23 05:11 | PC.NURSE ---
Master Baker- Pt oriented to her name & only, stating shes not normally this confused, and I missed my birthday (which was [birth year]). Calm and cooperative, did not sleep at all last night. Repositions in bed supported with pillows with no pre meds needed. Scheduled Toradol effective. Rates no pain upon rest, increases to 5/10 with movement and settles quickly in resting position. Denies nausea, chest pain. Pt has limited movement to right upper arm, supported on pillow, able to use left hand to grasp onto right wrist to help adjust arm. BLE edema left worse than right, pt states this is normal for her. Numbness to right plantar foot. IVF infusing well to right wrist PIV. Pt on ADA diet, prescribed metformin, no blood sugar fingerstick ordered, but checked at 0030 for 110 as last check was a lab glucose at 1635 for 104. Pt asymptomatic. High fall risk precautions in place, call light within reach although pt has not used throughout shift.
[2018-03-23] MEDS: KETOROLAC 30 MG/ML VIAL IV ×2 (06:19→11:30)
[2018-03-23] MEDS: SODIUM CHLORIDE 0.9% 1,000 ML 100 ML IV ×2 (06:21→16:49)
--- NOTE | 2018-03-23 07:32 | P.CONS_ITS ---
History of Present Illness Date Patient Seen: 03/23/18 Time Patient Seen: 07:32 Chief complaint: CRUSHED VERTEBRAE Reason for consult: L1 compression fracture Requesting provider: Nani Child Narrative: 78-year-old female complaining of back pain. She has a history of a fall 12 days ago while getting off the toilet. She had been to the emergency room and given some pain medication but the family brought her back to the hospital 2 days ago with increasing pain in the back, inability to move and get out of bed. Also right arm pain. She was admitted for pain control and feels like she is doing much better today but has not been out of bed yet. Pain in the back was sharp and unable to even roll over prior to this. She has no pain in the legs. She does have a history of a stroke with residual left-sided weakness. [facility] Medical History A-fib (Chronic) Diabetes (Chronic) High cholesterol (Chronic) History of hysterectomy (Chronic) History of thyroidectomy (Chronic) Hypertension (Chronic) Osteoporosis (Chronic) Stroke (Chronic) Deep venous thrombosis (DVT) of both peroneal veins (Resolved) Surgical History Hx of tonsillectomy (Chronic) Social History household members: spouse Smoking Status: Never smoker alcohol intake: never Meds Home Medications Medication Instructions Recorded Confirmed Type simvastatin 20 mg PO QPM #0 06/04/10 03/22/18 History alendronate [Fosamax] 70 mg PO QWEEK #0 11/02/17 03/22/18 History dabigatran etexilate [Pradaxa] 150 mg PO BID #0 11/02/17 03/22/18 History levothyroxine [Synthroid] 0.075 mg PO QAM #30 tab 11/02/17 03/22/18 History carvedilol [Coreg] 25 mg PO BID #60 tab 11/05/17 03/22/18 Rx lisinopril 10 mg PO QAM 03/13/18 03/22/18 History metformin 500 mg PO BID 03/13/18 03/22/18 History tramadol 50 mg PO Q4-6H PRN #20 tab 03/13/18 03/22/18 Rx Allergies Allergy/AdvReac Type Severity Reaction Status Date / Time No Known Drug Allergies Allergy Verified 03/22/18 14:13 Review of Systems Constitutional Constitutional: Reports weakness Cardiovascular Cardiovascular: Denies chest pain Respiratory Respiratory: Denies cough Gastrointestinal Gastrointestinal: Denies abdominal pain Genitourinary Genitourinary: Reports urinary urgency Musculoskeletal Musculoskeletal: Reports as per HPI Neurologic Neurologic: Reports weakness Exam Vital Signs (past 8 hours): - 03/22/18 23:40 03/23/18 04:12 Temperature 97.2 F L Pulse Rate 82 Respiratory Rate 16 Blood Pressure 120/69 Pulse Oximetry 96 92 Oxygen Delivery Method Room Air Oxygen Flow Rate 0 Const General: cooperative and well developed Orientation: alert Other: Resp Auscultation: clear to auscultation bilaterally Cardio Rhythm: abnormal rhythm Back/Spine/Pelvis Other: Mild tenderness over the mid lumbar midline. 5/5 motor both lower extremities. Negative straight leg raising. 1+ dorsalis pedis pulses bilaterally. 2+ moderate edema bilateral lower extremities. Objective Imaging Lumbar CT: My impression: Acute L1 compression fracture. Mild buckling of the posterior wall but no retropulsion. Mild central stenosis at L4-5. R shoulder xray: My impression: Nondisplaced proximal humerus fracture of the right shoulder Labs Result Diagrams: 03/22/18 16:35 03/22/18 16:35 Labs: Laboratory Results - last 24 hr 03/22/18 03/22/18 03/22/18 16:35 16:35 16:35 WBC 8.7 RBC 4.23 Hgb 13.0 Hct 38.8 MCV 91.6 MCH 30.6 MCHC 33.4 RDW 13.7 Plt Count 363 Neut % (Auto) 71.7 Lymph % (Auto) 19.5 L [place] % (Auto) 7.0 Eos % (Auto) 1.4 L Baso % (Auto) 0.4 Neut # (Auto) 6200 H PT 19.1 H INR 1.8 H APTT 58 H Sodium 139 Potassium 4.5 Chloride 100 Carbon Dioxide 29 BUN 16 Creatinine 0.70 Estimated GFR > 60.0 BUN/Creatinine Ratio 22.9 H Glucose 104 Calcium 9.2 Urine Color Urine Appearance Urine pH Ur Specific [place] Urine Protein Urine Glucose (UA) Urine Ketones Urine Occult Blood Urine Nitrate Urine Bilirubin Urine Urobilinogen Ur Leukocyte Esterase Urine RBC Urine WBC Urine Bacteria Ur Culture Indicated? Micro UA Comment 03/22/18 17:00 WBC RBC Hgb Hct MCV MCH MCHC RDW Plt Count Neut % (Auto) Lymph % (Auto) [place] % (Auto) Eos % (Auto) Baso % (Auto) Neut # (Auto) PT INR APTT Sodium Potassium Chloride Carbon Dioxide BUN Creatinine Estimated GFR BUN/Creatinine Ratio Glucose Calcium Urine Color Yellow Urine Appearance Turbid Urine pH 5.0 Ur Specific [place] 1.015 Urine Protein 2+ H Urine Glucose (UA) Negative Urine Ketones Trace H Urine Occult Blood 2+ H Urine Nitrate Negative Urine Bilirubin Negative Urine Urobilinogen 0.2 Ur Leukocyte Esterase 2+ H Urine RBC 30-100/hpf H Urine WBC >100/hpf H Urine Bacteria Many (>30) H Ur Culture Indicated? Specimen cultured Micro UA Comment Not Reportable Assessment & Plan Plan: Assessment/Plan Narrative: The right shoulder fracture is nondisplaced. This will just be treated conservatively with a sling. Dr. Child is seen her for this. L1 compression fracture with progressive pain. She actually feels better this morning and she has been on stronger pain medication but we will see how she does when she gets out of bed and we try to wean back some of the pain medication. If she does well, could possibly be discharged home. However, if the pain becomes unmanageable with trying to mobilize her and weaning back on the medication, we could certainly consider an L1 kyphoplasty tomorrow. I have tentatively scheduled her for this. Risks and benefits of kyphoplasty were discussed including but not limited to medical risk with heart attack, stroke, DVT, PE, , infection, bleeding, scarring, nerve injury with pain numbness weakness paralysis, failure to relieve symptoms, need for further surgery. We also discussed that due to her generalized osteoporosis she is at risk for future compression fractures as well as other fractures. At this point she is doing quite well and we will watch today. I will keep her NPO after midnight in case we need to go ahead with kyphoplasty tomorrow. She does have a history of AFib and stroke. She is on Pradaxa but this has been held. If she does not need surgery, then she can go back on this tomorrow. If we do the surgery, she can go back on it the next day. Time Spent With Patient Time with patient: less than 15 minutes
[2018-03-23] MEDS: CARVEDILOL 25 MG TABLET PO ×2 (08:41→20:17)
[2018-03-23] MEDS: LEVOTHYROXINE 75 MCG TABLET PO (08:41)
[2018-03-23] MEDS: LISINOPRIL 10 MG TABLET PO (08:42)
[2018-03-23] MEDS: METFORMIN HCL 500 MG TABLET PO ×2 (08:51→20:19)
[2018-03-23] MEDS: CALCITONIN,SALMON, NASAL SPRAY 1 SPRAYS NASAL (08:51)
--- NOTE | 2018-03-23 09:15 | CM.DANOTE ---
Addendum entered by Rosalia Carter 03/23/18 11:25: Addendum 03/23: Received call from Kami at [facility] who had received call from patient's daughter. Parvin is going out of town and wanted to be sure that her mother went to [facility], if needed, upon discharge. DCP Gave Kami update on this case, uncertain if surgery tomorrow or if she may d/c home if much improved later today. Did give Kami approval for verbal access to this chart, as patient has been at [facility] before and parvin expressed some concern about d/c plan. Kami is to return the call to the parvin to assure her of access. Kami stated patient would be welcome in their facility if needed to d/c to SNF. Original Note: Discharge Planning/Care Management CM Discharge Assessment Start: 03/23/18 09:11 Freq: Status: Active Protocol: Document 03/23/18 09:11 RL (Rec: 03/23/18 09:15 RL [id number]) Discharge Planning Assessment History Provided By Patient Has Patient been admitted in last 30 No days? Is this patient on Medicare? Yes Is the admit diagnosis the same? Yes Prior Living Arrangements House Household Members spouse Type of transporation used prior to Relies on Others admit Independent with ADL's Yes Is patient alert and oriented? Yes: Some metabolic encephalopathy r/t UTI or pain meds -- clearing Caregiver for Another No DME Already Rented / Owned Bath Bench Wheelchair Elevated Toilet Seat FWW / Walker Cane Discharge Plan Home Transportation Arrangement D/C Status undecided at this point, desires home but may have surgery and need SNF or other. Review Status Complete Next Review Date 03/24/18 Next Review Type Continued Stay Review DCP Initial Assmt 03/23/18: Case reviewed, EMR reviewed and met with patient who is reclining in bed comfortably. Pt is a 78 yo female admitted as INPatient for lumbar compression fracture (severe), UTI, and AMS, under the care of the hospitalist team. PCP: Dr. Davison Primary payor is: Medicare/ secondary :[employer] Other health care agencies used: None Met with patient. Introduced self as DCP, explained role and goals of DCP and as pt advocate. She verbalized understanding and admits that she is still a bit forgetful and cloudy on details, but was able to answer all questions appropriately. She verified home address, phone numbers, and insurance as correct on Face Sheet. Pt states she was independent at baseline for all ADLs prior to this hospitalization. She does not drive, her does all the driving. She lives at home with her spouse Jimi and they are not caregivers for others. They live on [address]. She states they have DME of a cane, FWW, bath bench, wheelchair and elevated toilet seat. Patient may have surgery by Dr. Cr tomorrow (is NPO at midnight 03/23), or if feeling better later today she may be managed more conservatively or d/c to home. She inquired about [facility], and once her outcome is determined (if post surgery), this may need further research into family income, etc. Plan: Patient goal is to d/c to home. Plan is pending whether surgery may be performed 03/24, or goes home w/conservative care later today or tomorrow w/out surgery. Rosalia Carter RN
--- NOTE | 2018-03-23 13:46 | PM.PN.1 ---
Subjective Date Patient Seen: 03/23/18 Time Patient Seen: 13:46 Interval history: Patient currently denies any back pain but has not been mobilized out of bed. Still seems a little confused but probably close to baseline. Exam Vital Signs (past 8 hours): - 03/23/18 08:00 03/23/18 11:55 Temperature 96.8 F L Pulse Rate 79 Respiratory Rate 16 Blood Pressure 113/60 Pulse Oximetry 97 95 Oxygen Delivery Method Room Air Oxygen Flow Rate 0 Narrative Exam Narrative: GENERAL: Patient is in no acute distress HEENT: Head normocephalic, atraumatic. Mucous membranes moist. CHEST: Clear to auscultation bilaterally. CARDIAC: Irregular rhythm ABDOMEN: Nondistended, soft, nontender EXTREMITIES: no edema. NEUROLOGICAL: Alert, pleasant, able to raise right arm about 60? without pain. Able to move both legs equally. SKIN: Warm, dry, no petechiae, no rash Objective Labs Result Diagrams: 03/22/18 16:35 03/22/18 16:35 Labs: Laboratory Results - last 24 hr 03/22/18 03/22/18 03/22/18 16:35 16:35 16:35 WBC 8.7 RBC 4.23 Hgb 13.0 Hct 38.8 MCV 91.6 MCH 30.6 MCHC 33.4 RDW 13.7 Plt Count 363 Neut % (Auto) 71.7 Lymph % (Auto) 19.5 L [place] % (Auto) 7.0 Eos % (Auto) 1.4 L Baso % (Auto) 0.4 Neut # (Auto) 6200 H PT 19.1 H INR 1.8 H APTT 58 H Sodium 139 Potassium 4.5 Chloride 100 Carbon Dioxide 29 BUN 16 Creatinine 0.70 Estimated GFR > 60.0 BUN/Creatinine Ratio 22.9 H Glucose 104 Calcium 9.2 Urine Color Urine Appearance Urine pH Ur Specific [place] Urine Protein Urine Glucose (UA) Urine Ketones Urine Occult Blood Urine Nitrate Urine Bilirubin Urine Urobilinogen Ur Leukocyte Esterase Urine RBC Urine WBC Urine Bacteria Ur Culture Indicated? Micro UA Comment 03/22/18 17:00 WBC RBC Hgb Hct MCV MCH MCHC RDW Plt Count Neut % (Auto) Lymph % (Auto) [place] % (Auto) Eos % (Auto) Baso % (Auto) Neut # (Auto) PT INR APTT Sodium Potassium Chloride Carbon Dioxide BUN Creatinine Estimated GFR BUN/Creatinine Ratio Glucose Calcium Urine Color Yellow Urine Appearance Turbid Urine pH 5.0 Ur Specific [place] 1.015 Urine Protein 2+ H Urine Glucose (UA) Negative Urine Ketones Trace H Urine Occult Blood 2+ H Urine Nitrate Negative Urine Bilirubin Negative Urine Urobilinogen 0.2 Ur Leukocyte Esterase 2+ H Urine RBC 30-100/hpf H Urine WBC >100/hpf H Urine Bacteria Many (>30) H Ur Culture Indicated? Specimen cultured Micro UA Comment Not Reportable Assessment & Plan Plan: Assessment/Plan Narrative: 1. Acute L1 compression fracture due to osteoporosis with ground level fall. Currently not having significant pain. Appreciate consult by Dr. Cr. Physical therapy will mobilize patient out of bed this afternoon. Plan is for kyphoplasty tomorrow if she has significant pain with movement. Continue Tylenol as needed and hydrocodone for more severe pain. Stop Toradol. Patient is on alendronate for osteoporosis. 2. Acute urinary tract infection. Urine culture growing gram-negative bacilli. She is on IV Rocephin to complete 3 day course. 3. Proximal humeral fracture nondisplaced. Continue conservative treatment with sling for comfort. 4. Acute metabolic encephalopathy, likely resolved. 5. History of hypertension. Continue patient's routine carvedilol and lisinopril. 6. Diabetes type 2, hyperlipidemia, hypothyroidism. Continue patient's routine metformin, simvastatin and levothyroxine. 7. Chronic atrial fibrillation. Pradaxa on hold in case patient will be having kyphoplasty. 8. Code status she desires to be full code but she is still thinking about this 9. Disposition. Inpatient admit. She will likely need care home rehab with tentative discharge on Friday this week.
--- NOTE | 2018-03-23 15:05 | PT.IIE ---
Surgery Performed Operation Date: 03/24/18 12:15 <No data on this case meets the specified criteria> Surgical History (Last Reviewed 03/23/18 @ 07:35 by Buddy Cr MD) Hx of tonsillectomy (Chronic) Medical History (Last Reviewed 03/23/18 @ 07:35 by Buddy Cr MD) A-fib (Chronic) Diabetes (Chronic) High cholesterol (Chronic) History of hysterectomy (Chronic) History of thyroidectomy (Chronic) Hypertension (Chronic) Osteoporosis (Chronic) Stroke (Chronic) Deep venous thrombosis (DVT) of both peroneal veins (Resolved) Physical Therapy Inpatient Evaluation/Re-Eval M1 PT/OT-IP Prior Functional Status Start: 03/23/18 15:08 Freq: NEEDED Status: Active Protocol: Document 03/23/18 14:30 DLM (Rec: 03/23/18 16:05 DLM [id number]) Medical Review Prior Functional Status Medical History Reviewed Yes Diet/Fluid Consistency Regular Communication WFL Mobility and Gait Per pt use of cane for walking . Since pt has fallen now use of walker and assist from family. Per pt crawls into bed via putting her knee up on the bed and twisting over. Activities of Daily Living and IADL's Prior to fall her assists her with socks, meals, bills, and medications (per her ) Social History Household Members spouse Living Arrangements House Number of Floors (Floors) Two Floors Number of Stairs To Enter/Railing? Per no steps to enter to the main level. Home Environment Standard Height Toilet Walk in Shower Built-In Shower Seat Home Equipment Front Wheel Walker Four Wheel Walker Straight Cane Hand Held Shower Lift Recliner Grab Bars Near Toilet Grab Bars In Shower Employment Status Retired Additional Social History Comment Pt a retired nurse. She can stay on the main level of house with bedroom and bathroom. M2 PT-IP Current Condition Start: 03/23/18 15:32 Freq: NEEDED Status: Active Protocol: Document 03/23/18 14:30 DLM (Rec: 03/23/18 16:05 DLM [id number]) Physical Therapy Current Condition Current Condition Evaluation Date 03/23/18 Treatment Diagnosis L1 compression fx, right humeral fx, impaired gait Onset Date 03/13/18 fell at home, admitted 03/22/18 Precautions Lumbar Precautions Log Roll No Twisting Limit Bending Lifting Restriction of 10 lbs Gait Belt above Incisional Area Shoulder Precautions Sling Pendulums Brace Lumbar back brace ordered, have on when up Other Precautions Initial sling as needed, per consult with Dr. Child in addition if no pain without sling discontinue. Start pendulums 3x/day to avoid stiffness. Weight Bearing Status Weight Bearing Status Weight Bear as Tolerated M3 PT-IP Subjective Start: 03/23/18 15:32 Freq: NEEDED Status: Active Protocol: Document 03/23/18 14:30 DLM (Rec: 03/23/18 16:05 DLM [id number]) Subjective Physical Therapy Visit Type Type Initial Evaluation Visit Start Time 13:50 Visit Stop Time 14:30 Total Visit Minutes 40 Number of SUPPLY ANALYST Visits 0 Physical Therapy Visit Comments Patient Comments Patient reports having no pain when in bed. Family reports her pain became progressively worse at home until she just could not get around even with help. Patient/Caregiver Goals Her daughter reports goal is to transfer to SNF then return home with Spouse Therapy Pain Assessment Pain When Pain Assessed During Mobility Pain Present Pain Present Pain Reported Location Right Shoulder Intensity 1 Scale Used Numeric (1 - 10) Description Aching Pain Management Techniques Modification of Treatment Back Intensity 3 Scale Used Numeric (1 - 10) Description Aching Pain Management Techniques Re-positioning M4 PT-IP Mobility and Gait Start: 03/23/18 15:32 Freq: NEEDED Status: Active Protocol: Document 03/23/18 14:30 DLM (Rec: 03/23/18 16:05 DLM [id number]) PT-Bed Mobility Assessment Rolling Type of Rolling Log Rolling Level of Assist Moderate Assistance Maximal Assistance Supine to Sit Supine to Sit Moderate Assistance Maximum Assistance Sit to Supine Sit to Supine Moderate Assistance Maximum Assistance Scooting Scooting to Edge of Bed Maximum Assistance Scooting Up and Down in Bed Dependent PT-Transfer Assessment Sit to and From Stand Sit to and from Stand Minimal Assistance Equipment Transfer Assistive Device Gait Belt Front Wheeled Walker Orthotic/Prosthetic Devices or Brace: Yes Transfers Transfer Destination Bed Transfer Technique Stand Step Pivot Transfer Ability Level of Assist Minimal Assistance Comments Mobility Comments Back brace donned and doffed in sitting with max assist Gait Assessment Gait Gait Assistance Required: Contact Guard Assist Minimum Assistance Distance (Feet) (feet) 10 Assistive Devices Assistive Device Gait Belt Front Wheeled Walker Orthotic/Prosthetic Devices or Brace: Yes Factors Limiting Gait Function Factors Limiting Gait Function Decreased Activity Tolerance Decreased Strength Poor Balance Comments Gait Comments No increased right shoulder pain holding FWW but she reports her arm feels tired. PT-Balance Assessment Sitting Balance and Reactions Static Sitting Balance Ability Good Dynamic Sitting Balance Ability Fair Standing Balance and Reactions Static Standing Balance Ability Fair Dynamic Standing Balance Ability Fair Device Used fww M5 PT-IP Objective Assessments Start: 03/23/18 15:32 Freq: NEEDED Status: Active Protocol: Document 03/23/18 14:30 DLM (Rec: 03/23/18 16:05 DLM [id number]) Orientation Orientation/Cognition Level of Alertness Alert Orientation Name Birthday Month Place Language Function Ability No Deficits Noted Safety Awareness Decreased Safety Awareness Memory Description Short Term Impaired Comments 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 Gross Range of Motion Upper Extremity ROM Assessment Right Impaired Impairments pt moving right UE functionally, c/o pain with shoulder flexion, limited assessment on right shoulder today due to fx Lower Extremity ROM Assessment Within Functional Limits Strength Upper Extremity Strength Assessment Right Impaired Shoulder 3-/5 Lower Extremity Strength Assessment Bilaterally Impaired Hip 3+/5 Knee 4/5 Ankle 4+/5 Coordination Assessment Gross Coordination Gross Coordination WNL Sensation Assessment Sensation Gross Sensation WNL Muscle Tone Muscle Tone WNL Yes M6 PT-IP Treatment Start: 03/23/18 15:32 Freq: NEEDED Status: Active Protocol: Document 03/23/18 14:30 DLM (Rec: 03/23/18 16:05 DLM [id number]) Physical Therapy Treatment Education Education Provided Precautions Safety Brace Education [place] Patient Equipment Issued Equipment Type and Company BOA back brace 8 low profile size 2X from [employer], issued 03/23/18. Sling issued by OT for right shoulder for comfort from [employer] M7 PT-IP Assessment and Plan Start: 03/23/18 15:32 Freq: NEEDED Status: Active Protocol: Document 03/23/18 14:30 DLM (Rec: 03/23/18 16:05 DLM [id number]) PT Summary Assessment and Plan Potential Rehabilitation Potential Good Status of Condition at Evaluation Evolving Summary Impairments Pain ROM Strength Balance Bed Mobility Transfers Gait Activity Tolerance Assessment Summary Pt is significantly below her baseline at this time. She is pleasant and cooperative with therapy. She tolerated her back brace well. She reports no increase in her back pain with gait using the back brace and FWW with assistance. Recommend the physician progress her activity order for gait as medically appropriate (pt currently on bed rest pending PT lindsay). She will need a lot of repetition to learn spine precautions due to her decreased memory. Goals Bed Mobility Goal Contact Guard Assistance Transfer Goal Contact Guard Assistance Front Wheeled Walker Gait Goal Contact Guard Assistance Front Wheel Walker Gait Distance 50 Days to Meet Goals 3 Frequency of Treatment Frequency Of Treatment Twice a Day Treatment Plan Physical Therapy Treatment Plan Bed Mobility Training Transfer Training Gait Training Therapeutic Exercise Balance Retraining Discharge Planning Hot or Cold Pack Other Recommendations and Next Treatment slowly progress her gait once Focus her activity level is progressed by the physician Recommendations To Nursing Amount of Assist Needed 1 Person Assist Discharge Recommendations PT Discharge Recommendations SNF Rehab
--- NOTE | 2018-03-23 15:34 | OT.IP.EVAL ---
Surgery Performed Operation Date: 03/24/18 12:15 <No data on this case meets the specified criteria> Past Medical History (Last Reviewed 03/23/18 @ 07:35 by Buddy Cr MD) A-fib (Chronic) Diabetes (Chronic) High cholesterol (Chronic) History of hysterectomy (Chronic) History of thyroidectomy (Chronic) Hypertension (Chronic) Osteoporosis (Chronic) Stroke (Chronic) Deep venous thrombosis (DVT) of both peroneal veins (Resolved) Surgical History (Last Reviewed 03/23/18 @ 07:35 by Buddy Cr MD) Hx of tonsillectomy (Chronic) Occupational Therapy Inpatient Evaluation/Re-Eval M1 PT/OT-IP Prior Functional Status Start: 03/23/18 15:08 Freq: NEEDED Status: Active Protocol: Document 03/23/18 13:50 [facility] (Rec: 03/23/18 15:33 [facility] [id number]) Medical Review Prior Functional Status Diet/Fluid Consistency Regular Mobility and Gait Per pt use of cane for walking . Since pt has fallen now use of walker and assist from family. Per pt crawls into bed via putting her knee up on the bed and twisting over. Activities of Daily Living and IADL's Prior to fall per needing assist for socks, meals ,bills, and medications. Social History Household Members spouse Living Arrangements House Number of Floors (Floors) Two Floors Number of Stairs To Enter/Railing? Per no steps to enter to the main level. Home Environment Standard Height Toilet Walk in Shower Built-In Shower Seat Home Equipment Front Wheel Walker Four Wheel Walker Straight Cane Lift Recliner Grab Bars Near Toilet Grab Bars In Shower Employment Status Retired Additional Social History Comment Pt a retired nurse. M2 OT-IP Current Condition Start: 03/23/18 15:08 Freq: Status: Active Protocol: Document 03/23/18 13:50 [facility] (Rec: 03/23/18 15:33 [facility] [id number]) Occupational Therapy Current Condition Current Condition Evaluation Date 03/23/18 Treatment Diagnosis L1 compression fracture/ Right proximal humerus fracture Diagnosis Onset Date 03/13/18 Post Operative Precautions Lumbar Precautions Log Roll No Twisting Limit Bending Lifting Restriction of 10 lbs Gait Belt above Incisional Area Shoulder Precautions Sling Pendulums Other Precautions Initial sling as needed, per consult with Dr. Child in addition if no pain without sling discontinue. Start pendulums 3x/day to avoid stiffness. Weight Bearing Status Weight Bearing Status Weight Bear as Tolerated M3 OT- IP Subjective and Pain Start: 03/23/18 15:08 Freq: Status: Active Protocol: Document 03/23/18 13:50 [facility] (Rec: 03/23/18 15:33 [facility] [id number]) OT- Subjective Occupational Therapy Visit Type Type Initial Evaluation Visit Start Time 13:50 Visit Stop Time 14:50 Total Visit Minutes 60 Occupational Therapy Visit Comments Patient Comments Pt cooperative to participate in therapy. Patient/Caregiver Goals Pt's would like her to go to [facility] to get stronger and go home when able. OT Pain Assessment Pain When Pain Assessed During Mobility Pain Present Pain Present Pain Reported Location Right Shoulder Scale Used soreness Management Techniques Re-positioning M4 OT- IP ADL's Start: 03/23/18 15:08 Freq: Status: Active Protocol: Document 03/23/18 13:50 [facility] (Rec: 03/23/18 15:33 [facility] [id number]) OT [id number] General Evaluation Areas Needing Assistance Opening Containers OT ADL-Grooming General Evaluation Areas Needing Assistance Retrieving/Set-up of Grooming Items Comments OT Grooming Comments Set-up at bedside at this time . OT ADL-Dressing General Eval Upper Body Dressing Ability Total Assistance Lower Body Dressing Ability Total Assistance Areas Needing Assistance Retrieving/Set-up of Clothing Orthosis/Prosthesis Comments OT Dressing Comments Pt dependent to jann/doff lumbar brace and for sling at this time and for all LB dressing needs. OT ADL-Toileting General Evaluation Toileting Ability Total Assistance Comments OT Toileting Comments Pt use of catheter and use of bed story in bed. OT ADL-Bathing Comments OT Bathing Comments No ready at this time. Would have to be sponge bath at this time. M6 OT- IP Functional Cognition Start: 03/23/18 15:08 Freq: Status: Active Protocol: Document 03/23/18 13:50 [facility] (Rec: 03/23/18 15:33 [facility] [id number]) Cognitive Factors Limiting Selfcare Function Cognitive Ability Level of Alertness Alert Confusional State Patient Orientation Name Birthday Attention Span Ability Capable of Focused Attention Unable to Sustain Attention Ability to Follow Commands Able to Follow One Step Commands Memory Description Short Term Impaired Safety Awareness Decreased Recall of Precautions Decreased Ability to Apply Precautions Underestimates Need for Assistance Problem Solving Ability Needs Assist to Identify Solutions Cognitive Comments Cognitive Assessment Comments Pt decreased STM and will need assist/education for back precautions for ADl's and functional mobility. VC to reach back with LUE versus RUE when sitting down to high bed . OT- Vision and Hearing OT- Hearing Assessment OT- Hearing Assessment WFL M7 OT- IP Mobility and Balance Start: 03/23/18 15:08 Freq: Status: Active Protocol: Document 03/23/18 13:50 [facility] (Rec: 03/23/18 15:33 [facility] [id number]) OT- Bed Mobility Assessment Rolling Type of Rolling Roll to Left Level of Assistance Moderate Assistance 1 Person Assistance Supine to Sit Supine to Sit Assist Moderate Assistance 1 Person Assistance Sit to Supine Sit to Supine Assist Moderate Assistance 2 Person Assistance OT-Transfer Assessment Sit to and From Stand Sit to and from Stand Minimal Assistance Moderate Assistance Transfers Transfer Ability Minimal Assistance Technique Transfer Destination Bed Transfer Technique Stand Step Pivot Devices Transfer Assistive Devices Gait Belt Front Wheeled Walker Comments Mobility Comments Lumbar brace when out of bed, sling for comfort, however tends to use right arm on the walker to walk. OT- Gait Assessment Gait Gait Assistance Required: Minimum Assistance Assistive Devices Assistive Device Front Wheeled Walker OT- Balance Assessment Sitting Balance and Reactions Static Sitting Balance Ability Good Dynamic Sitting Balance Ability Fair Standing Balance and Reactions Static Standing Balance Ability Fair Dynamic Standing Balance Ability Poor M8 OT- IP Objective Assessments Start: 03/23/18 15:08 Freq: Status: Active Protocol: Document 03/23/18 13:50 [facility] (Rec: 03/23/18 15:33 [facility] [id number]) OT Gross Range of Motion Upper Extremity Range of Motion Assessment Right Impaired ROM Impairments LUE WFL for needs, RUE NT due to fracture, able to assist for FMS needs. OT Strength Upper Extremity Strength Assessment Right Impaired OT-Muscle Tone Assessment Muscle Tone WNL Yes M9 OT- IP Assessment and Plan Start: 03/23/18 15:08 Freq: Status: Active Protocol: Document 03/23/18 13:50 [facility] (Rec: 03/23/18 15:33 [facility] [id number]) OT Summary Assessment and Plan Potential Rehabilitation Potential Good Analytic Complexity at Evaluation Low Summary OT Impairments Range of Motion Strength Balance Functional Cognition Functional Mobility Dressing Toileting Bathing Toilet Transfers Shower Transfers Progress Towards Goals Slow Progress due to Medical Issues Slow Progress due to Activity Tolerance Slow Progress due to Cognition Assessment Summary Pt here due to fall and subsequent pain from L1 compression fracture and right proximal humerus fracture-non -displaced and now requiring extensive assist for ADl's and functional mobility. Pt would benefit from skilled rehab work on increasing function with RUE, mobility and independence and safety for all needs. Goals Grooming Goal Standby Assistance Dressing Goal Moderate Assistance Toileting Goal Minimal Assistance Bathing Goal Moderate Assistance Toilet Transfer Goal Standby Assistance Shower Transfer Goal Minimal Assistance Patient/Caregiver Education Goal Demonstrate Post-Op Precautions Caregiver Independent Assisting Patient Days to Meet Goals 7 Frequency of Treatment Frequency Of Treatment Once a Day Treatment Plan OT Treatment Plan ADL Training Functional Cognition Training Functional Mobility Patient/Family Education Discharge Planning Other Treatment Recommendations and Next Initiate pendulums with pt as Treatment Focus tolerated, ADL's-toileting, stand to groom. Discharge Recommendations OT Discharge Recommendations SNF Rehab Home Equipment Needs [facility] – [place], [place]
--- NOTE | 2018-03-23 18:48 | PC.NURSE ---
Addendum entered by Patience Mclaughlin R.N. 03/23/18 22:19: Relatively uneventful evenning. Denies discomfort. IVF continue as per orders. Malcolm cath patent clear urine. Call light w/in reach, bed alarm on for pt safety. Continue w/plan of care. Original Note: Pt visiting with family, Denies any discomfort. Pleasantly confused. Denies discomfort at this time. IVF infusing into the right wrist via pump as per orders w/o incidence. Malcolm cath patent clear yellow urine. Call light w/in reach, bed alarm on for pt. safety.
[2018-03-23] MEDS: CEFTRIAXONE 1 GM/50 ML FROZ.PIGGY IV (20:17)
[2018-03-23] MEDS: MELATONIN 3 MG TABLET PO (20:18)
[2018-03-23] MEDS: SIMVASTATIN 20 MG TABLET PO (20:19)
[2018-03-24] VITALS (9 sets, daily range): BP systolic 139–187; BP diastolic 55–96; PULSE 84–91; RESP 16–18; TEMP 36.6–37.2; O2SAT 92–99
--- NOTE | 2018-03-24 06:18 | PC.NURSE ---
Internal Audit Consultant- Pt had some sleep on/off, much better than the last night. pain to right shoulder mild, 2/10, pt refused prn, stated some pain at rest, more with movement but settles in resting position. Denies pain to back. O2 sat 97% on RA, no distress throughout night. Pleasant & talkative, smiles during conversation. Oriented to name, LINDA, [facility], February...2018, and for fractured my bones. Malcolm insitu draining clear yellow urine qs with some sediment in tubing, much clearer compared to the last night. IVF infusing well to right wrist PIV. NPO since [place], oral care provided. High fall risk precautions in place, bed alarm on.
--- NOTE | 2018-03-24 07:31 | PM.PNPO.1 ---
Subjective Date Patient Seen: 03/24/18 Time Patient Seen: 07:31 Interval history: She feels fine today. Much more alert than yesterday. She reports that she was up with physical therapy walking around the room yesterday and at this point has almost no back pain. Exam Vital Signs (past 8 hours): - 03/23/18 23:55 03/24/18 00:10 03/24/18 03:53 Temperature 97.9 F 98.4 F Pulse Rate 82 89 Respiratory Rate 16 17 Blood Pressure 145/97 H 153/55 H Pulse Oximetry 97 97 98 Oxygen Delivery Method Room Air Oxygen Flow Rate 0 Const Orientation: alert and oriented x3 Back/Spine/Pelvis Other: Minimal tenderness across the mid lumbar spine. 5/5 motor both lower extremities. Objective Labs Result Diagrams: 03/22/18 16:35 03/22/18 16:35 Assessment & Plan Post-op Postoperative Procedures Operation Date: 03/24/18 12:15 <No data on this case meets the specified criteria> L1 compression fracture. She seems to be doing much better with pain control at this point. As her pain is minimal, there is no need to do a kyphoplasty on her. She has no interest in this procedure as well at this point.She can follow up my office in 2-3 weeks Right shoulder fracture, continue to treat conservatively as per Dr. Child. Okay for discharge today if safe and stable with therapy. She may resume her diabetic diet. Time Spent With Patient less than 15 minutes
[2018-03-24] MEDS: CARVEDILOL 25 MG TABLET PO ×2 (08:51→17:48)
[2018-03-24] MEDS: LISINOPRIL 10 MG TABLET PO (08:51)
[2018-03-24] MEDS: CALCITONIN,SALMON, NASAL SPRAY 1 SPRAYS NASAL (08:51)
--- NOTE | 2018-03-24 11:22 | PM.PN.1 ---
Subjective Date Patient Seen: 03/24/18 Time Patient Seen: 11:22 Interval history: Patient is able to ambulate out of bed with help and is not having any significant pain in her back. Exam Vital Signs (past 8 hours): - 03/24/18 03:53 03/24/18 07:00 03/24/18 09:02 Temperature 98.4 F 99 F Pulse Rate 89 91 H Respiratory Rate 17 18 Blood Pressure 153/55 H 139/78 H Pulse Oximetry 98 92 99 Oxygen Delivery Method Room Air Oxygen Flow Rate 0 Narrative Exam Narrative: GENERAL: Patient is in no acute distress HEENT: Head normocephalic, atraumatic. Mucous membranes moist. CHEST: Clear to auscultation bilaterally. CARDIAC: Irregular rhythm ABDOMEN: Nondistended, soft, nontender EXTREMITIES: no edema. NEUROLOGICAL: Alert, pleasant, able to raise right arm about 60? without pain. Able to move both legs equally. SKIN: Warm, dry, no petechiae, no rash Objective Labs Result Diagrams: 03/22/18 16:35 03/22/18 16:35 Assessment & Plan Plan: Assessment/Plan Narrative: 1. Acute L1 compression fracture due to osteoporosis with ground level fall. Currently not having significant pain with ambulation and will not need kyphoplasty. Appreciate consult by Dr. Cr. Continue physical therapy. Continue Tylenol as needed and hydrocodone for more severe pain. She has only received 2 doses of hydrocodone. Patient is on alendronate for osteoporosis. 2. Acute urinary tract infection. Urine culture grew Klebsiella sensitive to everything except nitrofurantoin and ampicillin. She is on IV Rocephin to complete 3 day course as of 03/24/2018. 3. Proximal humeral fracture nondisplaced. Continue conservative treatment with sling for comfort. 4. Acute metabolic encephalopathy, resolved. 5. History of hypertension. Adequately controlled. Continue patient's routine carvedilol and lisinopril. 6. Diabetes type 2, hyperlipidemia, hypothyroidism. Continue patient's routine metformin, simvastatin and levothyroxine. 7. Chronic atrial fibrillation. Pradaxa on hold in case patient will be having kyphoplasty. 8. Code status she desires to be full code but she is still thinking about this 9. Disposition. Inpatient admit. She will likely need nursing home rehab with tentative discharge on Friday this week.
--- NOTE | 2018-03-24 13:07 | CM.DPC ---
Addendum entered by RAQUEL Padilla 03/24/18 14:44: ADD: SW met bedside with pt and spouse and explained role and they are both still agreeable to d/c to [facility] tomorrow if stable and discussed transport by w/c to [facility] and both appreciative. RAQUEL Padilla Original Note: DCP Cont: Per MD, pt not currently needing any surgery and likely medically stable for d/c to SNF tomorrow if still stable. Per PT/OT, recommending SNF at d/c and preference is still [facility]. [facility] reviewed and accepts pt at d/c. SW completed PASRR. Plan: SW to follow for likely pt d/c to [facility] tomorrow if medically stable. RAQUEL Padilla
--- NOTE | 2018-03-24 13:21 | PT.IPTN ---
Current Diagnoses Age-related osteoporosis with current pathological fracture, vertebra(e), initial encounter for fracture (03/22/18) Surgery Performed Operation Date: 03/24/18 12:15 <No data on this case meets the specified criteria> Physical Therapy Treatment Note M2 PT-IP Current Condition Start: 03/23/18 15:32 Freq: NEEDED Status: Active Protocol: Document 03/23/18 14:30 DLM (Rec: 03/23/18 16:05 DLM [id number]) Physical Therapy Current Condition Current Condition Evaluation Date 03/23/18 Treatment Diagnosis L1 compression fx, right humeral fx, impaired gait Onset Date 03/13/18 fell at home, admitted 03/22/18 Precautions Lumbar Precautions Log Roll No Twisting Limit Bending Lifting Restriction of 10 lbs Gait Belt above Incisional Area Shoulder Precautions Sling Pendulums Brace Lumbar back brace ordered, have on when up Other Precautions Initial sling as needed, per consult with Dr. Child in addition if no pain without sling discontinue. Start pendulums 3x/day to avoid stiffness. Weight Bearing Status Weight Bearing Status Weight Bear as Tolerated M3 PT-IP Subjective Start: 03/23/18 15:32 Freq: NEEDED Status: Active Protocol: Document 03/24/18 13:11 AB (Rec: 03/24/18 13:21 AB [id number]) Subjective Physical Therapy Visit Type Type Treatment Note Visit Start Time 12:15 Visit Stop Time 12:47 Total Visit Minutes 17 Number of JAVA SDET Visits 0 Therapy Pain Assessment Pain Present Pain Present Denied Pain M4 PT-IP Mobility and Gait Start: 03/23/18 15:32 Freq: NEEDED Status: Active Protocol: Document 03/24/18 13:11 AB (Rec: 03/24/18 13:21 AB [id number]) PT-Transfer Assessment Sit to and From Stand Sit to and from Stand Minimal Assistance Equipment Transfer Assistive Device Gait Belt Front Wheeled Walker Orthotic/Prosthetic Devices or Brace: Yes Transfers Transfer Destination Chair Transfer Technique Stand Step Pivot Comments Mobility Comments pt assisted with donning of back brace and cues given for safety Gait Assessment Gait Gait Assistance Required: Minimum Assistance Distance (Feet) (feet) 12 Able to Maintain Weight Bearing Status Yes During Gait Assistive Devices Assistive Device Gait Belt Front Wheeled Walker Orthotic/Prosthetic Devices or Brace: Yes Gait Deviations General Gait Pattern Antalgic Factors Limiting Gait Function Factors Limiting Gait Function Decreased Activity Tolerance Decreased Strength Difficulty Following Directions Poor Balance Poor Safety Awareness Comments Gait Comments pt required assist to manage FWW M5 PT-IP Objective Assessments Start: 03/23/18 15:32 Freq: NEEDED Status: Active Protocol: Document 03/23/18 14:30 [facility] (Rec: 03/23/18 16:05 DLM [id number]) Orientation Orientation/Cognition Level of Alertness Alert Orientation Name Birthday Month Place Language Function Ability No Deficits Noted Safety Awareness Decreased Safety Awareness Memory Description Short Term Impaired Comments 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 Gross Range of Motion Upper Extremity ROM Assessment Right Impaired Impairments pt moving right UE functionally, c/o pain with shoulder flexion, limited assessment on right shoulder today due to fx Lower Extremity ROM Assessment Within Functional Limits Strength Upper Extremity Strength Assessment Right Impaired Shoulder 3-/5 Lower Extremity Strength Assessment Bilaterally Impaired Hip 3+/5 Knee 4/5 Ankle 4+/5 Coordination Assessment Gross Coordination Gross Coordination WNL Sensation Assessment Sensation Gross Sensation WNL Muscle Tone Muscle Tone WNL Yes M6 PT-IP Treatment Start: 03/23/18 15:32 Freq: NEEDED Status: Active Protocol: Document 03/24/18 13:11 AB (Rec: 03/24/18 13:21 AB [id number]) Physical Therapy Treatment Education Education Provided Safety Equipment Issued Equipment Type and Company back brace provided by PT yesterday from [employer]. M7 PT-IP Assessment and Plan Start: 03/23/18 15:32 Freq: NEEDED Status: Active Protocol: Document 03/24/18 13:11 AB (Rec: 03/24/18 13:21 AB [id number]) PT Summary Assessment and Plan Potential Rehabilitation Potential Fair Summary Impairments Strength Balance Cognition Bed Mobility Transfers Gait Activity Tolerance Progress Towards Goals Slow Progress due to Medical Issues Assessment Summary pt required one person assist with mobility with cues for safety. Pt has decrease safety awareness affecting mobility. Pt will benefit from SNF rehab. Goals Bed Mobility Goal Contact Guard Assistance Transfer Goal Contact Guard Assistance Front Wheeled Walker Gait Goal Contact Guard Assistance Front Wheel Walker Gait Distance 50 Days to Meet Goals 3 Frequency of Treatment Frequency Of Treatment Twice a Day Treatment Plan Physical Therapy Treatment Plan Bed Mobility Training Transfer Training Gait Training Therapeutic Exercise Balance Retraining Discharge Planning Hot or Cold Pack Other Recommendations and Next Treatment slowly progress her gait once Focus her activity level is progressed by the physician Recommendations To Nursing Amount of Assist Needed 1 Person Assist Discharge Recommendations PT Discharge Recommendations SNF Rehab
[2018-03-24] MEDS: DABIGATRAN 75 MG CAPSULE 150 MG PO ×2 (13:32→21:24)
--- NOTE | 2018-03-24 15:29 | PC.NURSE ---
Shift summary: Awake and alert. Able to answer orientation questions correctly, however she definitely seems to be forgetful/confused at times. Denied any pain or complaints today. IV saline locked per MD order. Up to chair for lunch, back brace on. 2-person w/ FWW for nursing assist w/ transfers. Able to make needs known and usually calls appropriately. Fall precautions in place, chair/bed alarm on at all times. Sounds like plan is to transfer to [facility] at discharge (likely tomorrow).
--- NOTE | 2018-03-24 16:20 | OT.IP.TRT ---
Current Diagnoses Age-related osteoporosis with current pathological fracture, vertebra(e), initial encounter for fracture (03/22/18) Surgery Performed Operation Date: 03/24/18 12:15 <No data on this case meets the specified criteria> Occupational Therapy Treatment Note M2 OT-IP Current Condition Start: 03/23/18 15:08 Freq: Status: Active Protocol: Document 03/23/18 13:50 CCC (Rec: 03/23/18 15:33 CCC [email or web address]) Occupational Therapy Current Condition Current Condition Evaluation Date 03/23/18 Treatment Diagnosis L1 compression fracture/ Right proximal humerus fracture Diagnosis Onset Date 03/13/18 Post Operative Precautions Lumbar Precautions Log Roll No Twisting Limit Bending Lifting Restriction of 10 lbs Gait Belt above Incisional Area Shoulder Precautions Sling Pendulums Other Precautions Initial sling as needed, per consult with Dr. Child in addition if no pain without sling discontinue. Start pendulums 3x/day to avoid stiffness. Weight Bearing Status Weight Bearing Status Weight Bear as Tolerated M3 OT- IP Subjective and Pain Start: 03/23/18 15:08 Freq: Status: Active Protocol: Document 03/24/18 16:03 PJM (Rec: 03/24/18 16:16 PJM [id number]) OT- Subjective Occupational Therapy Visit Type Type Treatment Note Visit Start Time 14:05 Visit Stop Time 14:37 Total Visit Minutes 32 Notes observing this session . Occupational Therapy Visit Comments Patient Comments This back brace makes things hard to do, it is so big and tight. Patient/Caregiver Goals to go home OT Pain Assessment Pain When Pain Assessed After Treatment Pain Present Pain Present Denied Pain M4 OT- IP ADL's Start: 03/23/18 15:08 Freq: Status: Active Protocol: Document 03/24/18 16:03 PJM (Rec: 03/24/18 16:16 PJM [id number]) OT ADL-Dressing General Eval Lower Body Dressing Ability Maximum Assistance Areas Needing Assistance Socks Assistive Devices Dressing Assistive Devices Lineman Apprentice Sock Aid Comments OT Dressing Comments Worked on use of car manager with L non dominant hand to remove socks with pt requiring max cues and min+ assist. Pt max assist to don socks with sock aid with total assist for set up. Pt was min edema in B lower legs and feet, and unable to use sock aid effectively this session due to decreased ankle flexibility . Pt may do better with soft sock aid. No c/o pain in RUE with sock aid use. OT ADL-Toileting Devices Toileting Assistive Devices Commode Comments OT Toileting Comments pt still has tucker M6 OT- IP Functional Cognition Start: 03/23/18 15:08 Freq: Status: Active Protocol: Document 03/24/18 16:03 PJM (Rec: 03/24/18 16:16 PJM [id number]) Cognitive Factors Limiting Selfcare Function Cognitive Ability Level of Alertness Alert Patient Orientation Name Attention Span Ability Capable of Focused Attention Ability to Follow Commands Able to Follow One Step Commands Memory Description Short Term Impaired Safety Awareness Decreased Recall of Precautions Underestimates Need for Assistance Problem Solving Ability Unable to Identify Errors Needs Assist to Identify Solutions Executive Function Ability Unable to Filter Distractions Cognitive Comments Cognitive Assessment Comments Pt pleasant but has decreased attention/concentration to task and distractable, but gives good effort. Decreased problem solving noted with new equipment. states they have car manager at home. has been assisting pt with upper/lower body dressing at home. OT- Vision and Hearing OT- Hearing Assessment OT- Hearing Assessment WFL OT- Vision Assessment Visual Acuity WFL Glasses All The Time M7 OT- IP Mobility and Balance Start: 03/23/18 15:08 Freq: Status: Active Protocol: Document 03/23/18 13:50 CCC (Rec: 03/23/18 15:33 CCC [email or web address]) OT- Bed Mobility Assessment Rolling Type of Rolling Roll to Left Level of Assistance Moderate Assistance 1 Person Assistance Supine to Sit Supine to Sit Assist Moderate Assistance 1 Person Assistance Sit to Supine Sit to Supine Assist Moderate Assistance 2 Person Assistance OT-Transfer Assessment Sit to and From Stand Sit to and from Stand Minimal Assistance Moderate Assistance Transfers Transfer Ability Minimal Assistance Technique Transfer Destination Bed Transfer Technique Stand Step Pivot Devices Transfer Assistive Devices Gait Belt Front Wheeled Walker Comments Mobility Comments Lumbar brace when out of bed, sling for comfort, however tends to use right arm on the walker to walk. OT- Gait Assessment Gait Gait Assistance Required: Minimum Assistance Assistive Devices Assistive Device Front Wheeled Walker OT- Balance Assessment Sitting Balance and Reactions Static Sitting Balance Ability Good Dynamic Sitting Balance Ability Fair Standing Balance and Reactions Static Standing Balance Ability Fair Dynamic Standing Balance Ability Poor M8 OT- IP Objective Assessments Start: 03/23/18 15:08 Freq: Status: Active Protocol: Document 06/26/18 16:03 PJM (Rec: 06/26/18 16:20 PJ [id number]) OT Gross Range of Motion Upper Extremity Range of Motion Assessment Right Impaired ROM Impairments pendulum exercises only due to non displaced proximal humerus fx with sling PRN for comfort; began education re: seated pendulums with pt tolerating 5 reps with min assist with no pain reported OT Strength Upper Extremity Strength Assessment Right Impaired Shoulder NT due to fx Elbow at least 3/5 Wrist 3+/5 Hand 4-/5 OT- Coordination Assessment Upper Extremity Finger to Nose Test Right UE Impaired Comments Coordination Comments Pt having difficulty placing R hand for activity due to R shoulder pain with some movements . Pt eating finger foods with R hand and using L hand for utensil by her report. OT-Muscle Tone Assessment Muscle Tone WNL Yes OT Sensation Assessment Comments Summary Comments Pt denies sensory deficits in either UE M9 OT- IP Assessment and Plan Start: 03/23/18 15:08 Freq: Status: Active Protocol: Document 03/24/18 16:03 PJ (Rec: 03/24/18 16:16 PJ [id number]) OT Summary Assessment and Plan Potential Rehabilitation Potential Good Summary OT Impairments Strength Balance Functional Cognition Dressing Toileting Bathing Toilet Transfers Shower Transfers Progress Towards Goals Slow Progress due to Activity Tolerance Slow Progress due to Cognition Assessment Summary Pt seen for education re: RUE pendulum exercises seated in chair , completing 5 reps with max cues. No c/o pain. Pt needs significant assist with dressing. She has difficulty recalling and applying precautions and will need repetition of information. SHe is pleasant and cooperative with good effort to tx tasks. Recommend SNF at discharge for further rehab services to increase independence, endurance, safety prior to return home with supportive .
--- NOTE | 2018-03-24 17:05 | PT.IPTN ---
Current Diagnoses Age-related osteoporosis with current pathological fracture, vertebra(e), initial encounter for fracture (03/22/18) Surgery Performed Operation Date: 03/24/18 12:15 <No data on this case meets the specified criteria> Physical Therapy Treatment Note M2 PT-IP Current Condition Start: 03/23/18 15:32 Freq: NEEDED Status: Active Protocol: Document 03/23/18 14:30 DLM (Rec: 03/23/18 16:05 DLM [id number]) Physical Therapy Current Condition Current Condition Evaluation Date 03/23/18 Treatment Diagnosis L1 compression fx, right humeral fx, impaired gait Onset Date 03/13/18 fell at home, admitted 03/22/18 Precautions Lumbar Precautions Log Roll No Twisting Limit Bending Lifting Restriction of 10 lbs Gait Belt above Incisional Area Shoulder Precautions Sling Pendulums Brace Lumbar back brace ordered, have on when up Other Precautions Initial sling as needed, per consult with Dr. Child in addition if no pain without sling discontinue. Start pendulums 3x/day to avoid stiffness. Weight Bearing Status Weight Bearing Status Weight Bear as Tolerated M3 PT-IP Subjective Start: 03/23/18 15:32 Freq: NEEDED Status: Active Protocol: Document 03/24/18 17:00 AB (Rec: 03/24/18 17:05 AB [id number]) Subjective Physical Therapy Visit Type Type Treatment Note Visit Start Time 15:30 Visit Stop Time 15:46 Total Visit Minutes 16 Number of INSURANCE ADVISER Visits 0 Physical Therapy Visit Comments Patient Comments pt agreeable to do therapy Therapy Pain Assessment Pain Present Pain Present Denied Pain M4 PT-IP Mobility and Gait Start: 03/23/18 15:32 Freq: NEEDED Status: Active Protocol: Document 03/24/18 17:00 AB (Rec: 03/24/18 17:05 AB [id number]) PT-Transfer Assessment Sit to and From Stand Sit to and from Stand Moderate Assistance Equipment Transfer Assistive Device Gait Belt Front Wheeled Walker Gait Assessment Gait Gait Assistance Required: Minimum Assistance Distance (Feet) (feet) 35 Assistive Devices Assistive Device Gait Belt Front Wheeled Walker Orthotic/Prosthetic Devices or Brace: Yes Gait Deviations General Gait Pattern Antalgic Decreased Stride Length Decreased Feet Clearance Lateral Trunk Lean Factors Limiting Gait Function Factors Limiting Gait Function Decreased Activity Tolerance Decreased Strength Difficulty Following Directions Poor Balance Poor Safety Awareness M5 PT-IP Objective Assessments Start: 03/23/18 15:32 Freq: NEEDED Status: Active Protocol: Document 03/23/18 14:30 DLM (Rec: 03/23/18 16:05 DLM [id number]) Orientation Orientation/Cognition Level of Alertness Alert Orientation Name Birthday Month Place Language Function Ability No Deficits Noted Safety Awareness Decreased Safety Awareness Memory Description Short Term Impaired Comments 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 Gross Range of Motion Upper Extremity ROM Assessment Right Impaired Impairments pt moving right UE functionally, c/o pain with shoulder flexion, limited assessment on right shoulder today due to fx Lower Extremity ROM Assessment Within Functional Limits Strength Upper Extremity Strength Assessment Right Impaired Shoulder 3-/5 Lower Extremity Strength Assessment Bilaterally Impaired Hip 3+/5 Knee 4/5 Ankle 4+/5 Coordination Assessment Gross Coordination Gross Coordination WNL Sensation Assessment Sensation Gross Sensation WNL Muscle Tone Muscle Tone WNL Yes M6 PT-IP Treatment Start: 03/23/18 15:32 Freq: NEEDED Status: Active Protocol: Document 03/24/18 13:11 AB (Rec: 03/24/18 13:21 AB [id number]) Physical Therapy Treatment Education Education Provided Safety Equipment Issued Equipment Type and Company back brace provided by PT yesterday from [employer]. M7 PT-IP Assessment and Plan Start: 03/23/18 15:32 Freq: NEEDED Status: Active Protocol: Document 03/24/18 17:00 AB (Rec: 03/24/18 17:05 AB [id number]) PT Summary Assessment and Plan Potential Rehabilitation Potential Fair Summary Impairments Strength Balance Coordination Sensation Cognition Bed Mobility Transfers Gait Activity Tolerance Progress Towards Goals Slow Progress due to Medical Issues Slow Progress due to Activity Tolerance Assessment Summary pt continues to require one person assist with mobility and max cues for safety. pt with antalgic gait and increase R lateral trunk leaning during ambulation and requires assist to maneuver FWW. pt has decrease safety awareness affecting function. pt will require SNF rehab to improve mobility. Goals Bed Mobility Goal Contact Guard Assistance Transfer Goal Contact Guard Assistance Front Wheeled Walker Gait Goal Contact Guard Assistance Front Wheel Walker Gait Distance 50 Days to Meet Goals 3 Frequency of Treatment Frequency Of Treatment Twice a Day Treatment Plan Physical Therapy Treatment Plan Bed Mobility Training Transfer Training Gait Training Therapeutic Exercise Balance Retraining Discharge Planning Hot or Cold Pack Recommendations To Nursing Amount of Assist Needed 1 Person Assist
[2018-03-24] MEDS: CEFTRIAXONE 1 GM/50 ML FROZ.PIGGY IV (17:47)
[2018-03-24] MEDS: SODIUM CHLORIDE 0.9% 250 ML 21 ML IV (17:51)
--- NOTE | 2018-03-24 18:51 | PC.NURSE ---
Bp at start of shift 187/91, pt not symptomatic, hospitalist called and instructed to give 25mg coreg early, pt bp reassessed 141/79
[2018-03-24] MEDS: METFORMIN HCL 500 MG TABLET PO (21:25)
[2018-03-24] MEDS: SIMVASTATIN 20 MG TABLET PO (21:26)
[2018-03-24] MEDS: MELATONIN 3 MG TABLET PO (22:03)
[2018-03-25] VITALS (7 sets, daily range): BP systolic 129–161; BP diastolic 77–95; PULSE 88–94; RESP 17–20; TEMP 36.4–36.8; O2SAT 96–98
[2018-03-25] MEDS: LEVOTHYROXINE 75 MCG TABLET PO (05:47)
[2018-03-25] MEDS: ACETAMINOPHEN 325 MG TABLET 650 MG PO (05:47)
[2018-03-25] MEDS: DABIGATRAN 75 MG CAPSULE 150 MG PO (08:56)
[2018-03-25] MEDS: CALCITONIN,SALMON, NASAL SPRAY 1 SPRAYS NASAL (08:56)
[2018-03-25] MEDS: METFORMIN HCL 500 MG TABLET PO (08:57)
[2018-03-25] MEDS: CARVEDILOL 25 MG TABLET PO (08:57)
[2018-03-25] MEDS: LISINOPRIL 10 MG TABLET PO (08:57)
[2018-03-25] MEDS: SODIUM CHLORIDE 0.9% FLUSH 10 ML IV (08:58)
--- NOTE | 2018-03-25 10:50 | PT.IPTN ---
Current Diagnoses Age-related osteoporosis with current pathological fracture, vertebra(e), initial encounter for fracture (03/22/18) Surgery Performed Operation Date: 03/24/18 12:15 <No data on this case meets the specified criteria> Physical Therapy Treatment Note M2 PT-IP Current Condition Start: 03/23/18 15:32 Freq: NEEDED Status: Active Protocol: Document 03/25/18 10:37 TMS (Rec: 03/25/18 10:48 TMS [email or web address]) Physical Therapy Current Condition Current Condition Evaluation Date 03/23/18 Treatment Diagnosis L1 compression fx, right humeral fx, impaired gait Onset Date 03/13/18 fell at home, admitted 03/22/18 Precautions Lumbar Precautions Log Roll No Twisting Limit Bending Lifting Restriction of 10 lbs Gait Belt above Incisional Area Shoulder Precautions Sling Pendulums Brace Lumbar back brace ordered, have on when up Other Precautions Initial sling as needed, per consult with Dr. Child in addition if no pain without sling discontinue. Start pendulums 3x/day to avoid stiffness. Weight Bearing Status Weight Bearing Status Weight Bear as Tolerated M3 PT-IP Subjective Start: 03/23/18 15:32 Freq: NEEDED Status: Active Protocol: Document 03/25/18 10:37 TMS (Rec: 03/25/18 10:48 TMS [email or web address]) Subjective Physical Therapy Visit Type Type Treatment Note Visit Start Time 10:05 Visit Stop Time 10:30 Total Visit Minutes 25 Number of FEATHER DRYING MACHINE OPERATOR Visits 1 Physical Therapy Visit Comments Patient Comments Pt. admits to being confused. PLANNING MANAGER states pt. is more confused today then yesterday. Therapy Pain Assessment Pain When Pain Assessed At Rest Pain Present Pain Present Denied Pain M4 PT-IP Mobility and Gait Start: 03/23/18 15:32 Freq: NEEDED Status: Active Protocol: Document 03/25/18 10:37 TMS (Rec: 03/25/18 10:48 TMS [email or web address]) PT-Bed Mobility Assessment Rolling Type of Rolling Log Rolling Roll to Left Level of Assist Moderate Assistance Supine to Sit Supine to Sit Moderate Assistance Scooting Scooting to Edge of Bed Moderate Assistance PT-Transfer Assessment Sit to and From Stand Sit to and from Stand Minimal Assistance Equipment Transfer Assistive Device Gait Belt Front Wheeled Walker Comments Mobility Comments Brace donned in sitting before gait. Cues to not use right arm minimally with bed mobility and sit to stand. Gait Assessment Gait Gait Assistance Required: Contact Guard Assist Minimum Assistance Distance (Feet) (feet) 80 Able to Maintain Weight Bearing Status Yes During Gait Assistive Devices Assistive Device Gait Belt Front Wheeled Walker Orthotic/Prosthetic Devices or Brace: Yes Gait Deviations General Gait Pattern Antalgic Decreased Stride Length Decreased Feet Clearance Flexed Trunk Factors Limiting Gait Function Factors Limiting Gait Function Decreased Activity Tolerance Decreased Strength Difficulty Following Directions Poor Balance Poor Safety Awareness Comments Gait Comments Pt. needed occasional manual assist to steer walker. Many cues for posture and to take bigger steps with gait. Fatigued at end of gait with increased shuffling. Stood at sink to brush teeth and hair with assist of O.T. O.T. to assist with pendulum exercises after gait. 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 Gross Range of Motion Upper Extremity ROM Assessment Right Impaired Impairments pt moving right UE functionally, c/o pain with shoulder flexion, limited assessment on right shoulder today due to fx Lower Extremity ROM Assessment Within Functional Limits Strength Upper Extremity Strength Assessment Right Impaired Shoulder 3-/5 Lower Extremity Strength Assessment Bilaterally Impaired Hip 3+/5 Knee 4/5 Ankle 4+/5 Coordination Assessment Gross Coordination Gross Coordination WNL Sensation Assessment Sensation Gross Sensation WNL Muscle Tone Muscle Tone WNL Yes M6 PT-IP Treatment Start: 03/23/18 15:32 Freq: NEEDED Status: Active Protocol: Document 03/24/18 13:11 AB (Rec: 03/24/18 13:21 AB [id number]) Physical Therapy Treatment Education Education Provided Safety Equipment Issued Equipment Type and Company back brace provided by PT yesterday from [employer]. M7 PT-IP Assessment and Plan Start: 03/23/18 15:32 Freq: NEEDED Status: Active Protocol: Document 03/25/18 10:37 TMS (Rec: 03/25/18 10:48 TMS [email or web address]) PT Summary Assessment and Plan Summary Impairments Strength Balance Coordination Sensation Cognition Bed Mobility Transfers Gait Activity Tolerance Progress Towards Goals Slow Progress due to Medical Issues Slow Progress due to Activity Tolerance Assessment Summary Pt. very plesantly confused. Complained of twinges occasional but having very little pain, even with mobility. Struggled with bed mobility. Frequency of Treatment Frequency Of Treatment Twice a Day Treatment Plan Physical Therapy Treatment Plan Bed Mobility Training Transfer Training Gait Training Therapeutic Exercise Balance Retraining Discharge Planning Hot or Cold Pack Recommendations To Nursing Amount of Assist Needed 1 Person Assist Discharge Recommendations PT Discharge Recommendations SNF Rehab
--- NOTE | 2018-03-25 11:06 | OT.IP.TRT ---
Current Diagnoses Age-related osteoporosis with current pathological fracture, vertebra(e), initial encounter for fracture (03/22/18) Surgery Performed Operation Date: 03/24/18 12:15 <No data on this case meets the specified criteria> Occupational Therapy Treatment Note M2 OT-IP Current Condition Start: 03/23/18 15:08 Freq: Status: Active Protocol: Document 03/23/18 13:50 [facility] (Rec: 03/23/18 15:33 [facility] [id number]) Occupational Therapy Current Condition Current Condition Evaluation Date 03/23/18 Treatment Diagnosis L1 compression fracture/ Right proximal humerus fracture Diagnosis Onset Date 03/13/18 Post Operative Precautions Lumbar Precautions Log Roll No Twisting Limit Bending Lifting Restriction of 10 lbs Gait Belt above Incisional Area Shoulder Precautions Sling Pendulums Other Precautions Initial sling as needed, per consult with Dr. Child in addition if no pain without sling discontinue. Start pendulums 3x/day to avoid stiffness. Weight Bearing Status Weight Bearing Status Weight Bear as Tolerated M3 OT- IP Subjective and Pain Start: 03/23/18 15:08 Freq: Status: Active Protocol: Document 03/25/18 10:53 [facility] (Rec: 03/25/18 11:03 [facility] [id number]) OT- Subjective Occupational Therapy Visit Type Type Treatment Note Visit Start Time 10:10 Visit Stop Time 10:50 Total Visit Minutes 40 Occupational Therapy Visit Comments Patient Comments Pt agreeable to get up. Patient/Caregiver Goals Pt wanting to get stronger and better. OT Pain Assessment Pain When Pain Assessed After Treatment Pain Present Pain Present Denied Pain M4 OT- IP ADL's Start: 03/23/18 15:08 Freq: Status: Active Protocol: Document 03/25/18 10:53 [facility] (Rec: 03/25/18 11:03 [facility] [id number]) OT [id number] General Evaluation Areas Needing Assistance Opening Containers OT ADL-Grooming General Evaluation Grooming Ability Standby Assistance Areas Needing Assistance Retrieving/Set-up of Grooming Items Comments OT Grooming Comments Set-up while standing to do grooming needs. OT ADL-Oral Care General Eval Oral Care Ability Standby Assistance OT ADL-Dressing General Eval Upper Body Dressing Ability Maximum Assistance Lower Body Dressing Ability Maximum Assistance Areas Needing Assistance Socks Comments OT Dressing Comments Dependent for lumbar brace. OT ADL-Bathing Comments OT Bathing Comments Aid states will assist pt for sponge bath. M6 OT- IP Functional Cognition Start: 03/23/18 15:08 Freq: Status: Active Protocol: Document 03/25/18 10:53 [facility] (Rec: 03/25/18 11:03 [facility] [id number]) Cognitive Factors Limiting Selfcare Function Cognitive Ability Level of Alertness Alert Patient Orientation Name Attention Span Ability Capable of Focused Attention Ability to Follow Commands Able to Follow One Step Commands Memory Description Short Term Impaired Safety Awareness Decreased Recall of Precautions Underestimates Need for Assistance Problem Solving Ability Unable to Identify Errors Needs Assist to Identify Solutions Cognitive Comments Cognitive Assessment Comments Pt pleasant but confused and does not remember that she is going to skilled rehab. OT- Vision and Hearing OT- Hearing Assessment OT- Hearing Assessment WFL OT- Vision Assessment Visual Acuity WFL Glasses All The Time M7 OT- IP Mobility and Balance Start: 03/23/18 15:08 Freq: Status: Active Protocol: Document 03/25/18 10:53 [facility] (Rec: 03/25/18 11:03 [facility] [id number]) OT- Bed Mobility Assessment Rolling Type of Rolling Roll to Left Level of Assistance Moderate Assistance 1 Person Assistance Supine to Sit Supine to Sit Assist Moderate Assistance 1 Person Assistance OT-Transfer Assessment Sit to and From Stand Sit to and from Stand Moderate Assistance Transfers Transfer Ability Minimal Assistance 1 Person Assistance 2 Person Assistance Technique Transfer Destination Chair Transfer Technique Stand Step Pivot Devices Transfer Assistive Devices Gait Belt Front Wheeled Walker Comments Mobility Comments Pt needing second person to help monitor and guide right side on the FWW due to having pt limit use of right arm. Pt states does not feel like she needs the sling at this time due to no pain. OT- Gait Assessment Gait Gait Assistance Required: Minimum Assistance 1 Person Assist 2 Person Assist Assistive Devices Assistive Device Front Wheeled Walker M8 OT- IP Objective Assessments Start: 03/23/18 15:08 Freq: Status: Active Protocol: Document 03/25/18 10:10 [facility] (Rec: 03/25/18 11:05 [facility] [id number]) OT Gross Range of Motion Upper Extremity Range of Motion Assessment Right Impaired ROM Impairments pendulum exercises only due to non displaced proximal humerus fx with sling PRN for comfort; began education re: seated pendulums with pt tolerating 2 x 10reps with min assist with no pain reported M9 OT- IP Assessment and Plan Start: 03/23/18 15:08 Freq: Status: Active Protocol: Document 03/25/18 10:53 [facility] (Rec: 03/25/18 11:03 [facility] [id number]) OT Summary Assessment and Plan Potential Rehabilitation Potential Good Summary OT Impairments Strength Balance Functional Cognition Dressing Toileting Bathing Toilet Transfers Shower Transfers Progress Towards Goals Slow Progress due to Activity Tolerance Slow Progress due to Cognition Goals Days to Meet Goals 5 Frequency of Treatment Frequency Of Treatment Once a Day Treatment Plan OT Treatment Plan ADL Training Functional Cognition Training Functional Mobility Patient/Family Education Discharge Planning Other Treatment Recommendations and Next Continue pendulums and ADL's Treatment Focus Discharge Recommendations OT Discharge Recommendations SNF Rehab Home Equipment Needs [facility] – [place], [place]
--- NOTE | 2018-03-25 11:08 | P.DS_ITS ---
History of Present Illness Date Patient Seen: 03/25/18 Time Patient Seen: 11:04 Chief complaint: CRUSHED VERTEBRAE Narrative: 78-year-old female presents with increasing back pain and weakness and shoulder pain. She fell back on March 13 seen in the ER diagnosed with a compression fracture and over the course of the last weeks been having increasing pain in the back and noticing increasing pain in the shoulder area and today had episode where she slumped or fell again because of just generalized weakness and had some sweats maybe some fever and chills were noted so was brought into the emergency room where a fracture was noted on the humerus humeral neck fracture was noted. She complains of just generalized weakness she does have a previous history of stroke and low bit weaker on the left that is chronic. Family also noted she has been increasingly confused recently basically since she started taking tramadol for her pain for her back. Discharge Providers Date of admission: 03/22/18 19:01 Primary care physician: Tariq Davison MD Consults: 03/22/18 18:35 Consult to Orthopedic Surgery Routine Comment: Consulting Provider: Nani Child Reason for consultation: Right humeral fracture, L1 spinal compression fracture Has provider been notified: Yes Consult to Physician Routine Comment: Consulting Provider: Dionicio Galarza Reason for consultation: Admission Has provider been notified: Yes 03/22/18 19:50 Consult to Dietitian, Adult Routine Comment: Reason For Exam: recent weight loss 03/23/18 10:06 Consult to Occupational Therapy Evaluate & Treat Comment: Physician Instructions: Evaluate and treat Consult to Physical Therapy Evaluate & Treat Comment: Physician Instructions: Evaluate and Treat 03/24/18 10:34 Consult to Discharge Planning Routine Comment: d/c SNF wed Discharge provider: Tariq Davison MD Summary Discharge Diagnosis: 1. Acute L1 compression fracture secondary to osteoporosis with low impact fall 2. Acute right proximal humerus fracture 3. Acute urinary tract infection 4. Acute metabolic encephalopathy 5. Hypertension 6. Type 2 diabetes 7. Chronic atrial fibrillation Hospital Course: 1. Acute L1 compression fracture due to osteoporosis with ground level fall. Currently not having significant pain with ambulation and will not need kyphoplasty. Appreciate consult by Dr. Cr. Continue physical therapy and occupational therapy at [facility]. Continue Tylenol as needed and back brace for comfort. Patient is on alendronate for osteoporosis. 2. Acute urinary tract infection. Urine culture grew Klebsiella sensitive to everything except nitrofurantoin and ampicillin. She is on IV Rocephin to complete 3 day course as of 03/24/2018. 3. Proximal humeral fracture nondisplaced. Continue conservative treatment with sling for comfort. 4. Acute metabolic encephalopathy, resolved. Patient has baseline aphasia and some degree of cognitive deficit secondary to prior stroke. She appears at baseline. 5. History of hypertension. Blood pressure has been mildly elevated. I have increased her lisinopril from 10 mg daily to 20 mg daily and continued carvedilol 25 mg twice daily. 6. Diabetes type 2, hyperlipidemia, hypothyroidism. Continue patient's routine metformin, simvastatin and levothyroxine. 7. Chronic atrial fibrillation. Pradaxa resume since she will not need surgical intervention. 8. Code status she desires to be full code but she is still thinking about this Status at Discharge Overall status at discharge: patient is not back to baseline Time Spent with Patient Greater than 30 minutes Exam Vital Signs (past 8 hours): - 03/25/18 03:17 03/25/18 05:45 03/25/18 08:00 Temperature 98.1 F 98.1 F Pulse Rate 91 H 90 88 Respiratory Rate 17 18 Blood Pressure 161/95 H 155/93 H Pulse Oximetry 97 96 Oxygen Delivery Method Room Air Oxygen Flow Rate 98 Objective Labs Result Diagrams: 03/22/18 16:35 03/22/18 16:35 Discharge Plan Discharge Plan Discharge Problem: Closed compression fracture of L1 lumbar vertebra, Urinary tract infection, Acute alteration in mental status, Closed right humeral fracture Patient Disposition: SNF Transfer to: [facility] Transportation: Facility vehicle Consult as needed: Dental, Hearing, Mental health, Podiatry and Vision I certify the postop hospital shelter care is medically necessary on a continuing basis for any conditions for which he/ she received care during this hospitalization.: Yes The receiving facility has agreed to accept transfer and provide medical treatment.: Yes Discharge Med Rec/Prescriptions Prescriptions: New lisinopril 20 mg tablet 20 mg PO DAILY Qty: 30 RF: 0 acetaminophen 325 mg Tablet 650 mg PO Q6H PRN (Reason: As Needed For Fever/Mild Pain) Qty: 30 RF: 0 Continue simvastatin 20 mg Tablet 20 mg PO QPM Qty: 0 RF: 0 dabigatran etexilate [Pradaxa] 150 MG capsule 150 mg PO BID Qty: 0 RF: 0 alendronate [Fosamax] 70 MG tablet 70 mg PO QWEEK Qty: 0 RF: 0 levothyroxine [Synthroid] 75 MCG tablet 0.075 mg PO QAM Qty: 30 RF: 0 carvedilol [Coreg] 25 MG tablet 25 mg PO BID Qty: 60 RF: 5 metformin 500 mg tablet 500 mg PO BID RF: 0 tramadol 50 mg tablet 50 mg PO Q4-6H PRN (Reason: pain) Qty: 20 RF: 0 Discontinued lisinopril 10 mg tablet 10 mg PO QAM RF: 0 Discharge Health Status Multidrug resistant organism: No MDRO Provider Discharge Instructions Diet: Diet as Tolerated Catheter: 2-way Malcolm Catheter comment: remove catheter 03/26/18 Special Rehabilitation Services Reason for rehabilitation: Recovery r/t decondition Rehab type: Physical therapy and Occupational therapy Discharge Data Primary Care Provider: Tariq Davison Attending Provider: Dionicio Galarza Admit Date/Time: 03/22/18 19:01
--- NOTE | 2018-03-25 12:22 | CM.DPNOTE ---
DCP: case received, dc to snf order noted. Met with pt and her to confirm plan for [facility]. Orders and [facility] faxed to [facility]. Transport: w/c: 1330. NENA Gallagher is updated. P: [facility] as noted: today
--- NOTE | 2018-03-25 15:56 | PC.NURSE ---
Transfer: Report called to [facility] admitting nurse. Reviewed hospital course. Discussed skin issues. Pt has a fx of the rt arm and a comp fx of L1. Hx of cva w/lt weakness and fx arm is on the side she uses and what pt reports as my good side. Minimal pain and declined vicodin, tylenol this am was effective. Reviewed use of arm splint and lumbar corset. Questions answered. Pt transfered to [facility] using there van.
== END 2018-03-25 13:25 | DRG 542 ==
LOC: ED 18:34 → AC 19:01
PROVIDERS: Admitting Provider Internal Medicine; Emergency Provider Emergency Medicine; Family Provider Internal Medicine; PCP Internal Medicine; Visit Provider Internal Medicine
DX: M80.08XA Age-related osteoporosis with current pathological fracture, vertebra(e), initial encounter for fracture (principal); G93.41 Metabolic encephalopathy; N39.0 Urinary tract infection, site not specified; I69.354 Hemiplegia and hemiparesis following cerebral infarction affecting left non-dominant side; M80.021A Age-related osteoporosis with current pathological fracture, right humerus, initial encounter for fracture; Z79.83 Long term (current) use of bisphosphonates; I48.2 Chronic atrial fibrillation; Z79.01 Long term (current) use of anticoagulants; E11.9 Type 2 diabetes mellitus without complications; Z79.84 Long term (current) use of oral hypoglycemic drugs; E78.5 Hyperlipidemia, unspecified; I10 Essential (primary) hypertension; I69.320 Aphasia following cerebral infarction; W18.11XA Fall from or off toilet without subsequent striking against object, initial encounter; B96.1 Klebsiella pneumoniae [K. pneumoniae] as the cause of diseases classified elsewhere
CPT/HCPCS: 36415; 70450; 72131; 73030; 80048; 81001; 82962; 85025; 85610; 85730; 87077; 87086; 87186; 96365; 97110; 97116; 97162; 97165; 97530; 97535; 99283; 99285; J1885

== ENCOUNTER → 2018-04-06 09:50 | Outpatient (REF) | payer MEDICARE, SELFPAY ==
[2018-03-22 19:29] VITALS: BMI 32.7
[2018-04-06 10:00] LABS: Red Blood Cell Count 4.22 X10^6/uL (4.0-5.2); White Blood Cell Count 6.3 X10^3/uL (4.5-11.0)
[2018-04-06 10:01] LABS: Add Manual Diff / Slide Review NO; Basophils Percent Auto 0.5 % (0-2); Eosinophils Percent Auto 3.8 % (2-4); Hematocrit 38.5 % (36-46); Lymphocytes Percent Auto 30.2 % (25-40); Mean Corpuscular HGB Conc 33.7 % (30-36); Mean Corpuscular Hemoglobin 30.8 PG (26-34); Mean Corpuscular Volume 91.5 fL (80-100); Monocytes Percent Auto 7.6 % (3-14); Neutrophils Absolute Auto 3700 /uL (3000-5900); Neutrophils Percent Auto 57.9 % (50-75); Platelet Count 272 X10^3/uL (150-400); Red Cell Distribution Width 14.2 % (11.6-14.8)
[2018-04-06 10:05] LABS: BUN Creatinine Ratio 23.3 (6-22); Blood Urea Nitrogen 14 mg/dL (7-17); Calcium 8.9 mg/dL (8.4-10.2); Carbon Dioxide 30 mmol/L (22-32); Chloride 106 mmol/L (98-107); Estimated Glomerular Filt Rate > 60.0 mL/min (>60); Glucose 115 mg/dL (80-110); Potassium 5.1 mmol/L (3.4-5.1); Sodium 144 mmol/L (137-145)
== END ==
LOC: LAB 09:50
PROVIDERS: Visit Provider Internal Medicine
DX: N39.0 Urinary tract infection, site not specified (principal); G93.41 Metabolic encephalopathy
CPT/HCPCS: 36415; 80048; 85025

== ENCOUNTER → 2018-04-15 07:54 | Outpatient (REF) | payer MEDICARE, SELFPAY ==
[2018-03-22 19:29] VITALS: BMI 32.7
[2018-04-15 09:25] LABS: Add Manual Diff / Slide Review NO; Basophils Percent Auto 0.6 % (0-2); Eosinophils Percent Auto 2.8 % (2-4); Hematocrit 34.7 % (36-46); Hemoglobin 11.6 g/dL (12.0-16.0); Lymphocytes Percent Auto 43.1 % (25-40); Mean Corpuscular HGB Conc 33.4 % (30-36); Mean Corpuscular Hemoglobin 30.7 PG (26-34); Monocytes Percent Auto 7.3 % (3-14); Neutrophils Absolute Auto 2100 /uL (3000-5900); Neutrophils Percent Auto 46.2 % (50-75); Platelet Count 254 X10^3/uL (150-400); Red Blood Cell Count 3.77 X10^6/uL (4.0-5.2); Red Cell Distribution Width 14.6 % (11.6-14.8); White Blood Cell Count 4.6 X10^3/uL (4.5-11.0)
[2018-04-15 09:38] LABS: Blood Urea Nitrogen 15 mg/dL (7-17); Calcium 8.8 mg/dL (8.4-10.2); Carbon Dioxide 29 mmol/L (22-32); Chloride 105 mmol/L (98-107); Estimated Glomerular Filt Rate > 60.0 mL/min (>60); Glucose 106 mg/dL (80-110); HEMOLYSIS < 15 (0-50); Potassium 4.3 mmol/L (3.4-5.1); Sodium 143 mmol/L (137-145)
== END ==
LOC: LAB 07:54
PROVIDERS: Family Provider Internal Medicine; PCP Internal Medicine; Visit Provider Internal Medicine
DX: R60.9 Edema, unspecified (principal)
CPT/HCPCS: 36415; 80048; 85025

== ENCOUNTER → 2018-12-07 15:10 | Outpatient (CLI) | payer MEDICARE, SELFPAY ==
[2018-03-22 19:29] VITALS: BMI 32.7
[2018-12-07 16:22] LABS: BUN Creatinine Ratio 27.1 (6-22); Blood Urea Nitrogen 19 mg/dL (7-17); Estimated Glomerular Filt Rate > 60.0 mL/min (>60)
== END ==
PROVIDERS: PCP Internal Medicine; Visit Provider Internal Medicine
DX: I10 Essential (primary) hypertension (principal); M81.0 Age-related osteoporosis without current pathological fracture
CPT/HCPCS: 36415; 82565; 84520

== ENCOUNTER → 2019-01-26 11:47 | Outpatient (CLI) | payer MEDICARE, SELFPAY ==
[2018-03-22 19:29] VITALS: BMI 32.7
[2019-01-26 13:35] LABS: BUN Creatinine Ratio 33.3 (6-22); Blood Urea Nitrogen 20 mg/dL (7-17); Estimated Glomerular Filt Rate > 60.0 mL/min (>60)
== END ==
PROVIDERS: PCP Internal Medicine; Visit Provider Internal Medicine
DX: I10 Essential (primary) hypertension (principal); M81.0 Age-related osteoporosis without current pathological fracture
CPT/HCPCS: 36415; 82565; 84520

== ENCOUNTER → 2019-01-27 09:11 | Oncology outpatient (ONC) | payer MEDICARE, SELFPAY ==
[2018-03-22 19:29] VITALS: BMI 32.7
[2019-01-26 15:23] VITALS: BP 134/73; PULSE 88; RESP 16; TEMP 36.7; O2SAT 95
[2019-01-26] MEDS: ZOLEDRONIC ACID 5 MG in SODIUM CHLORIDE 0.9% 100 ML 318.75 ML IV (15:30)
== END ==
PROVIDERS: PCP Internal Medicine; Visit Provider Internal Medicine
DX: M81.0 Age-related osteoporosis without current pathological fracture (principal)
CPT/HCPCS: 36415; 82565; 84520; 96374; J3489

== ENCOUNTER → 2019-02-25 11:13 | Outpatient (CLI) | payer MEDICARE, SELFPAY ==
[2018-03-22 19:29] VITALS: BMI 32.7
== END ==
PROVIDERS: PCP Internal Medicine; Visit Provider Internal Medicine
DX: N39.0 Urinary tract infection, site not specified (principal)
CPT/HCPCS: 87077; 87086; 87186

== ENCOUNTER 2019-10-26 12:45 | Outpatient (RCR) | payer MEDICARE, SELFPAY ==
[2018-03-22 19:29] VITALS: BMI 32.7
--- NOTE | 2019-08-03 17:01 | PT.OIE ---
Current Diagnoses Unspecified abnormalities of gait and mobility (08/03/19) Past Medical History (This Medical Record has been edited. Action required.) A-fib (Chronic) Deep venous thrombosis (DVT) of both peroneal veins (Resolved) Diabetes (Chronic) High cholesterol (Chronic) Hypertension (Chronic) Osteoporosis (Chronic) Stroke (Chronic) Past Surgical History (This Medical Record has been edited. Action required.) History of hysterectomy (Chronic) History of thyroidectomy (Chronic) Hx of tonsillectomy (Chronic) Visit Care Team Role Provider Type Derrick Dooley MD Attending Provider Physician Primary Care Provider Specialty: Internal Medicine Address: [address] [place] [address] Email: [email or web address] Physical Therapy Initial Evaluation PT-OP-A Visit Information Start: 08/03/19 15:44 Freq: Status: Active Protocol: Document 08/03/19 14:30 NFW (Rec: 08/03/19 17:01 NFW [id number]) Out-Patient Physical Therapy Visit Information Visit Information Visit Type Initial Evaluation Visit Start Time 14:30 Visit Stop Time 15:35 Total Visit Minutes 65 Visit Number 1 Number of PLASTIC MAKER Visits 0 Evaluation Information Evaluation Date 08/03/19 Precautions Precautions High fall risk. PT-OP-B Current Condition Start: 08/03/19 15:44 Freq: Status: Active Protocol: Document 08/03/19 14:30 NFW (Rec: 08/03/19 17:01 NFW [id number]) Current Condition History of Current Condition Current Complaints Overall decrease of functional abilities. 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 Pt was hospitalized in rehab for ~ 3 mos one year ago secondary to raheel the flu. Over the past couple of years she has noticed progressive weakness in her LEs and limitations in performing her normal daily activities. Treatment Goals Patient/Caregiver Goals Greater ease getting in and out of car. Be able to travel by plane with . Be able to cook meals again. Prior Functional Status Baseline Function- ADL's Modified Independent Baseline Function- Mobility Modified Independent Current Functional Impairments (Reported) Functional Limitations- ADL's Requires assist with shoes and socks. Functional Limitations- Mobility/Gait Ambulates with FWW, depends heavily onto UEs. Functional Limitations- Work/School Has not been able to cook, sweep the floor, rake the leaves for quite some time. Functional Limitations- Recreation/ Going out to the mall or a Hobbies carnival with her grandkids. Functional Limitations- Other Difficulty getting in and out of the car. PT-OP-C Subjective Start: 08/03/19 15:44 Freq: Status: Active Protocol: Document 08/03/19 14:30 NFW (Rec: 08/03/19 17:01 NFW [id number]) OP-PT Subjective Patient Comments Patient Comments Patient pleasant and follows instructions well. Just wants to get stronger. States no significant problems with memory or with her vision. Patient Questionnaires ABC- Activity Specific Balance Confidence Scale ABC Score 40.6 ABC Functional Impairment 60 to <80% Impaired (Score 21- 40) Dizziness Handicap Inventory DHI Score 62 DHI Functional Impairment 60 to 79% Impaired (Score 60- 79) OP-PT Pain Assessment Pain Assessment Grid Paper Pain Assessment Grid Completed Yes: pain is not a concern of pt. PT-OP-D Balance Start: 08/03/19 15:44 Freq: Status: Active Protocol: Document 08/03/19 14:30 NFW (Rec: 08/03/19 17:01 NFW [id number]) Balance Tests Li Balance Test Li Balance Test Score 28/56 Li Impairment Rating 40 to 59% Impaired (Score 23- 33) Romberg Romberg unable Single Limb Standing Single Limb- Right unable Single Limb- Left unable Tinetti Balance Assessment Sitting Balance Sitting Balance Leans or slides in chair Arising from Chair Ability to Arise Able, uses arms to help Attempts to Arise Arises on 1st attempt Standing Balance Immediate Standing Balance Steady with support Standing Balance Steady, wide stance Nudged Response Steady Standing with Eyes Closed Unsteady Turning Step Pattern Turning 360 Degrees Continuous steps Stability Turning 360 Degrees Steady Sitting Down Sitting Down Uses arms or unsteady Gait and Step Initiation of Gait Hesitancy, mult. attempts Right Foot Step Length Does pass stance foot Right Foot Step Height Completely clears floor Left Foot Step Length Does pass stance foot Left Foot Step Height Does not clear floor Step Description Step Symmetry Step length not equal Step Continuity Steps appear continuous Gait Description Path Description Mild/moderate deviation Trunk Description No sway but posturing Walking Stance Heels apart Scoring and Interpretation Tinetti Composite Score (points) 16 Interpretation of Scores High risk for falls(< 19) Tinetti Impairment Rating from Composite 40 to <60% Impaired (Score 12- Score 16) PT-OP-E Functional Tests Start: 08/03/19 15:44 Freq: Status: Active Protocol: Document 08/03/19 14:30 NFW (Rec: 08/03/19 17:01 [facility] [id number]) Functional Tests Timed Up and Go (TUG) Score 42 seconds Comments performed with no assistive device TUG Impairment Rating 100% Impaired (Score 20) Tinetti Balance and Gait Assessment Gait Score Impairment Rating 40 to <60% Impaired (Score 5-7 ) PT-OP-G Mobility & Gait Start: 08/03/19 15:44 Freq: Status: Active Protocol: Document 08/03/19 14:30 NFW (Rec: 08/03/19 17:01 [facility] [id number]) OP Mobility Evaluation Bed Mobility Rolling Able to roll side to side with cuing. Supine to and from Sit Independent. Sit to supine, extreme difficulty doing this activity the recommended way (sitting down then rolling to side to back). At home she faces the bed, puts one knee up then reaches forward with hand and grabs mattress/sheets to pull herself forward. She does say she flops down into bed. Transfers Sit to Stand Independent with use of BUEs. Bed to Chair Transfers Independendt with use of BUEs. Car Transfers Did not test, but patient and report that this is a very difficult activity for them to perform. Floor Transfers Did not test, but do not feel patient would be able to lift her weight up off the floor. Functional Movements Lifting and Carrying None Squats No Running Assessment No OP Gait Assessment Gait Gait Assistance Required: Standby Assistance,1 Person Assist Distance (Feet) 50 Assistive Devices Assistive Device Front Wheeled Walker Gait Deviations General Gait Pattern Decreased Stride Length, Decreased Feet Clearance, Flexed Trunk,Wide Based Gait Factors Limiting Gait Function Factors Limiting Gait Function Abnormal Tonal Influences, Decreased Activity Tolerance, Decreased Strength, Incoordination,Limited Range of Motion,Poor Balance,Poor Safety Awareness Comments Gait Comments Gait slow and shuffled especially with left LE. PT-OP-J Posture/Palpation/Skin Start: 08/03/19 15:44 Freq: Status: Active Protocol: Document 08/03/19 14:30 NFW (Rec: 08/03/19 17:01 [facility] [id number]) Posture Evaluation Position Standing Head/C-Spine Posture Forward Head T-Spine Posture Increased Kyphosis L-Spine Posture Decreased Lordosis Shoulder Posture (L) Rounded,(R) Rounded Scapula Posture (L) Protracted,(R) Protracted Pelvis Posture (R) Iliac Crest Superior Weight Distribution Weight Shifted Right Hip Posture (L) Externally Rotated,(L) Abducted Knee Posture (R) Genu Recurvatum Skin Assessment Edema Assessment Bilateral Foot Edema Type Pitting Edema Degree 3+ Edema Appearance Firm,Puffy,Taut Comments Significant edema lower leg into ankles and feet, left much moreso than right PT-OP-K Range of Motion Start: 08/03/19 15:44 Freq: Status: Active Protocol: Document 08/03/19 14:30 NFW (Rec: 08/03/19 17:01 [facility] [id number]) Hip Goniometric Range of Motion Hip Left Active Hip ROM WFL No Testing Position Supine Flexion w/Knee Flexed 90 Straight Leg Raise 30 Abduction 20 External Rotation 20 Right Active Hip ROM WFL No Testing Position Supine Flexion w/Knee Flexed 90 Straight Leg Raise 60 Abduction 30 External Rotation 30 Hip ROM Limitations Hip ROM Limitations Soft Tissue Tightness,Muscle Weakness,Muscle Tone,Swelling Knee Goniometric Range of Motion Knee Left Knee ROM WFL Yes Right Knee ROM WFL Yes PT-OP-M Strength Start: 08/03/19 15:44 Freq: Status: Active Protocol: Document 08/03/19 14:30 NFW (Rec: 08/03/19 17:01 [facility] [id number]) Hip Strength Hip Manual Muscle Testing Left Flexion (L2) 3+ Fair+ Comments Other muscle groups not tested due to difficulty in getting in proper position. Right Flexion (L2) 4 Good Comments Other muscle groups not tested due to difficulty in getting in proper position. Knee Strength Knee Manual Muscle Testing Left Flexion (S2) 3+ Fair+ Extension (L3) 3+ Fair+ Right Flexion (S2) 4 Good Extension (L3) 4 Good Ankle/Foot Strength Ankle and Foot Manual Muscle Testing Left Dorsiflexion (L4) 4 Good Right Dorsiflexion (L4) 4 Good Toe Strength Toe Manual Muscle Testing Left Great Toe Extension 3 Fair Right Great Toe Extension 4 Good PT-OP-T Assessment and Plan Start: 08/03/19 15:44 Freq: Status: Active Protocol: Document 08/03/19 14:30 NFW (Rec: 08/03/19 17:01 NFW [id number]) Physical Therapy Assessment Rehab Potential Rehabilitation Potential Good Evaluation Complexity Number of Personal Factors/Comorbidities 3 or More Number of Body Systems Impaired 4 or More Clinical Presentation at Evaluation Evolving Impairments Impairments Activity Tolerance,Balance, Edema,Functional Activities, Functional Mobility,Gait, Integument,Posture,ROM,Soft Tissue Mobility,Strength, Transfers Goals Four Impairment Low functional level Short Term Goal (STG) Perform light cooking activities at home. STG Duration 09/14/19 Assisted Goal (LTG) Greater ease getting in and out of car. LTG Duration 10/26/19 Three Impairment Poor Balance Assisted Goal (LTG) Improve Li Balance Score to 20-39% impaired. LTG Duration 10/26/19 Two Impairment Slow walking pace Short Term Goal (STG) Improve Timed Up and Go Test without the use of assistive devices to 30 seconds. STG Duration 09/14/19 Photograph Finisher Goal (LTG) Improve Timed Up and Go Test without use of assistive devices to 15 seconds. LTG Duration 10/26/19 One Impairment Low confidence in functional abilities Short Term Goal (STG) Improve ABC scale score from 60-80% impaired to 40-60% STG Duration 09/14/19 Assisted Goal (LTG) Improve ABC scale score to 20- 40% impaired LTG Duration 10/26/19 Assessment Summary Assessment Patient comes to therapy for assistance in regaining her strength and in turn her overall functional activity level. She presents as a high risk for falls, her Dizziness questionnaire has her as severely handicapped. She is very motivated, answers questions appropriately and has a very supportive . Physical Therapy Plan Frequency and Duration Frequency of Treatment 2x/Week Duration of Treatment 3 months Plan of Care Start Date 08/03/19 Plan of Care End Date 10/26/19 Therapeutic Interventions Therapeutic Interventions Balance Training,Coordination Training,Gait Training,Home Exercise Program,Self-Care/ Home Management,Therapeutic Activities,Therapeutic Exercises Other Therapeutic Interventions May need lymphedema management in the future. Next Visit Focus/Plan Next Note Type Treatment Note Next Visit Plan Establish HEP.
--- NOTE | 2019-08-03 17:02 | PT.OPPOC ---
Current Diagnoses Unspecified abnormalities of gait and mobility (08/03/19) Visit Care Team Role Provider Type Derrick Dooley MD Attending Provider Physician Primary Care Provider Specialty: Internal Medicine Address: [address] [place] [address], [facility] Email: [email or web address] Plan Of Care PT-OP-T Assessment and Plan Start: 08/03/19 15:44 Freq: Status: Active Protocol: Document 08/03/19 14:30 NFW (Rec: 08/03/19 17:01 NFW [id number]) Physical Therapy Assessment Rehab Potential Rehabilitation Potential Good Evaluation Complexity Number of Personal Factors/Comorbidities 3 or More Number of Body Systems Impaired 4 or More Clinical Presentation at Evaluation Evolving Impairments Impairments Activity Tolerance,Balance, Edema,Functional Activities, Functional Mobility,Gait, Integument,Posture,ROM,Soft Tissue Mobility,Strength, Transfers Goals Four Impairment Low functional level Short Term Goal (STG) Perform light cooking activities at home. STG Duration 09/14/19 Long-Term Goal (LTG) Greater ease getting in and out of car. LTG Duration 10/26/19 Three Impairment Poor Balance Long-Term Goal (LTG) Improve Li Balance Score to 20-39% impaired. LTG Duration 10/26/19 Two Impairment Slow walking pace Short Term Goal (STG) Improve Timed Up and Go Test without the use of assistive devices to 30 seconds. STG Duration 09/14/19 Long-Term Goal (LTG) Improve Timed Up and Go Test without use of assistive devices to 15 seconds. LTG Duration 10/26/19 One Impairment Low confidence in functional abilities Short Term Goal (STG) Improve ABC scale score from 60-80% impaired to 40-60% STG Duration 09/14/19 Long-Term Goal (LTG) Improve ABC scale score to 20- 40% impaired LTG Duration 10/26/19 Assessment Summary Assessment Patient comes to therapy for assistance in regaining her strength and in turn her overall functional activity level. She presents as a high risk for falls, her Dizziness questionnaire has her as severely handicapped. She is very motivated, answers questions appropriately and has a very supportive . Physical Therapy Plan Frequency and Duration Frequency of Treatment 2x/Week Duration of Treatment 3 months Plan of Care Start Date 08/03/19 Plan of Care End Date 10/26/19 Therapeutic Interventions Therapeutic Interventions Balance Training,Coordination Training,Gait Training,Home Exercise Program,Self-Care/ Home Management,Therapeutic Activities,Therapeutic Exercises Other Therapeutic Interventions May need lymphedema management in the future. Next Visit Focus/Plan Next Note Type Treatment Note Next Visit Plan Establish HEP. Plan of Care Dates Plan of Care Start Date 08/03/19 Plan of Care End Date 10/26/19
--- NOTE | 2019-08-10 17:02 | PT.OTN ---
Current Diagnoses Unspecified abnormalities of gait and mobility (08/10/19) Physical Therapy Treatment Note PT-OP-A Visit Information Start: 08/03/19 15:44 Freq: Status: Active Protocol: Document 08/10/19 14:30 NFW (Rec: 08/10/19 17:01 NFW [id number]) Out-Patient Physical Therapy Visit Information Visit Information Visit Type Treatment Note Visit Start Time 14:30 Visit Stop Time 15:15 Total Visit Minutes 45 Visit Number 2 Number of STENCIL MACHINE OPERATOR Visits 0 PT-OP-B Current Condition Start: 08/03/19 15:44 Freq: Status: Active Protocol: Document 08/03/19 14:30 NFW (Rec: 08/03/19 17:01 NFW [id number]) Current Condition History of Current Condition Current Complaints Overall decrease of functional abilities. 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 Pt was hospitalized in rehab for ~ 3 mos one year ago secondary to raheel the flu. Over the past couple of years she has noticed progressive weakness in her LEs and limitations in performing her normal daily activities. Treatment Goals Patient/Caregiver Goals Greater ease getting in and out of car. Be able to travel by plane with . Be able to cook meals again. Prior Functional Status Baseline Function- ADL's Modified Independent Baseline Function- Mobility Modified Independent Current Functional Impairments (Reported) Functional Limitations- ADL's Requires assist with shoes and socks. Functional Limitations- Mobility/Gait Ambulates with FWW, depends heavily onto UEs. Functional Limitations- Work/School Has not been able to cook, sweep the floor, rake the leaves for quite some time. Functional Limitations- Recreation/ Going out to the mall or a Hobbies carnival with her grandkids. Functional Limitations- Other Difficulty getting in and out of the car. PT-OP-C Subjective Start: 08/03/19 15:44 Freq: Status: Active Protocol: Document 08/10/19 14:30 NFW (Rec: 08/10/19 17:01 NFW [id number]) OP-PT Subjective Patient Comments Patient Comments No complaints. Wishes she could move faster and get in and out of car easier. PT-OP-D Balance Start: 08/03/19 15:44 Freq: Status: Active Protocol: Document 08/03/19 14:30 NFW (Rec: 08/03/19 17:01 [facility] [id number]) Balance Tests Li Balance Test Li Balance Test Score 28/56 Li Impairment Rating 40 to 59% Impaired (Score 23- 33) Romberg Romberg unable Single Limb Standing Single Limb- Right unable Single Limb- Left unable Tinetti Balance Assessment Sitting Balance Sitting Balance Leans or slides in chair Arising from Chair Ability to Arise Able, uses arms to help Attempts to Arise Arises on 1st attempt Standing Balance Immediate Standing Balance Steady with support Standing Balance Steady, wide stance Nudged Response Steady Standing with Eyes Closed Unsteady Turning Step Pattern Turning 360 Degrees Continuous steps Stability Turning 360 Degrees Steady Sitting Down Sitting Down Uses arms or unsteady Gait and Step Initiation of Gait Hesitancy, mult. attempts Right Foot Step Length Does pass stance foot Right Foot Step Height Completely clears floor Left Foot Step Length Does pass stance foot Left Foot Step Height Does not clear floor Step Description Step Symmetry Step length not equal Step Continuity Steps appear continuous Gait Description Path Description Mild/moderate deviation Trunk Description No sway but posturing Walking Stance Heels apart Scoring and Interpretation Tinetti Composite Score (points) 16 Interpretation of Scores High risk for falls(< 19) Tinetti Impairment Rating from Composite 40 to <60% Impaired (Score 12- Score 16) PT-OP-E Functional Tests Start: 08/03/19 15:44 Freq: Status: Active Protocol: Document 08/03/19 14:30 NFW (Rec: 08/03/19 17:01 [facility] [id number]) Functional Tests Timed Up and Go (TUG) Score 42 seconds Comments performed with no assistive device TUG Impairment Rating 100% Impaired (Score 20) Tinetti Balance and Gait Assessment Gait Score Impairment Rating 40 to <60% Impaired (Score 5-7 ) PT-OP-G Mobility & Gait Start: 08/03/19 15:44 Freq: Status: Active Protocol: Document 08/03/19 14:30 NFW (Rec: 08/03/19 17:01 [facility] [id number]) OP Mobility Evaluation Bed Mobility Rolling Able to roll side to side with cuing. Supine to and from Sit Independent. Sit to supine, extreme difficulty doing this activity the recommended way (sitting down then rolling to side to back). At home she faces the bed, puts one knee up then reaches forward with hand and grabs mattress/sheets to pull herself forward. She does say she flops down into bed. Transfers Sit to Stand Independent with use of BUEs. Bed to Chair Transfers Independendt with use of BUEs. Car Transfers Did not test, but patient and report that this is a very difficult activity for them to perform. Floor Transfers Did not test, but do not feel patient would be able to lift her weight up off the floor. Functional Movements Lifting and Carrying None Squats No Running Assessment No OP Gait Assessment Gait Gait Assistance Required: Standby Assistance,1 Person Assist Distance (Feet) 50 Assistive Devices Assistive Device Front Wheeled Walker Gait Deviations General Gait Pattern Decreased Stride Length, Decreased Feet Clearance, Flexed Trunk,Wide Based Gait Factors Limiting Gait Function Factors Limiting Gait Function Abnormal Tonal Influences, Decreased Activity Tolerance, Decreased Strength, Incoordination,Limited Range of Motion,Poor Balance,Poor Safety Awareness Comments Gait Comments Gait slow and shuffled especially with left LE. PT-OP-J Posture/Palpation/Skin Start: 08/03/19 15:44 Freq: Status: Active Protocol: Document 08/03/19 14:30 NFW (Rec: 08/03/19 17:01 [facility] [id number]) Posture Evaluation Position Standing Head/C-Spine Posture Forward Head T-Spine Posture Increased Kyphosis L-Spine Posture Decreased Lordosis Shoulder Posture (L) Rounded,(R) Rounded Scapula Posture (L) Protracted,(R) Protracted Pelvis Posture (R) Iliac Crest Superior Weight Distribution Weight Shifted Right Hip Posture (L) Externally Rotated,(L) Abducted Knee Posture (R) Genu Recurvatum Skin Assessment Edema Assessment Bilateral Foot Edema Type Pitting Edema Degree 3+ Edema Appearance Firm,Puffy,Taut Comments Significant edema lower leg into ankles and feet, left much moreso than right PT-OP-K Range of Motion Start: 08/03/19 15:44 Freq: Status: Active Protocol: Document 08/03/19 14:30 NFW (Rec: 08/03/19 17:01 [facility] [id number]) Hip Goniometric Range of Motion Hip Left Active Hip ROM WFL No Testing Position Supine Flexion w/Knee Flexed 90 Straight Leg Raise 30 Abduction 20 External Rotation 20 Right Active Hip ROM WFL No Testing Position Supine Flexion w/Knee Flexed 90 Straight Leg Raise 60 Abduction 30 External Rotation 30 Hip ROM Limitations Hip ROM Limitations Soft Tissue Tightness,Muscle Weakness,Muscle Tone,Swelling Knee Goniometric Range of Motion Knee Left Knee ROM WFL Yes Right Knee ROM WFL Yes PT-OP-M Strength Start: 08/03/19 15:44 Freq: Status: Active Protocol: Document 08/03/19 14:30 NFW (Rec: 08/03/19 17:01 NFW [id number]) Hip Strength Hip Manual Muscle Testing Left Flexion (L2) 3+ Fair+ Comments Other muscle groups not tested due to difficulty in getting in proper position. Right Flexion (L2) 4 Good Comments Other muscle groups not tested due to difficulty in getting in proper position. Knee Strength Knee Manual Muscle Testing Left Flexion (S2) 3+ Fair+ Extension (L3) 3+ Fair+ Right Flexion (S2) 4 Good Extension (L3) 4 Good Ankle/Foot Strength Ankle and Foot Manual Muscle Testing Left Dorsiflexion (L4) 4 Good Right Dorsiflexion (L4) 4 Good Toe Strength Toe Manual Muscle Testing Left Great Toe Extension 3 Fair Right Great Toe Extension 4 Good PT-OP-Q Treatments Start: 08/03/19 15:44 Freq: Status: Active Protocol: Document 08/10/19 14:30 NFW (Rec: 08/10/19 17:01 NFW [id number]) Therapeutic Exercises Supine Exercises 4 Supine Exercise Name Bridge Side bilateral Reps/Minutes 10 x, 5 sec holds 3 Supine Exercise Name Isometric Hip Abduction Side bilateral Equipment Used Tband - Level 6 Reps/Minutes 10 x, 5 sec holds 2 Supine Exercise Name Isometric Hip Adduction Side bilateral Equipment Used 9 ball Reps/Minutes 10 x , 5 sec holds 1 Supine Exercise Name Glut Sets, legs extended Side bilateral Reps/Minutes 10 x, 5 sec holds Standing Exercises 4 Standing Exercise Name Mini Squats Side bilateral Equipment Used FWW Reps/Minutes 15 x 3 Standing Exercise Name Hip Extension Side bilateral Equipment Used FWW Reps/Minutes 15 x Comments Alternating sides 2 Standing Exercise Name Hip Abduction Side bilateral Equipment Used FWW Reps/Minutes 15 x Comments Alternating sides 1 Standing Exercise Name March Side bilateral Equipment Used FWW Reps/Minutes 15 x Therapeutic Activity Therapeutic Activity 1 Name Supine to Sitting Reps/Minutes x4 Comments Body mech supine to sitting rolling to right side. Cuing required but able to complete independently. Gait Training Gait Activity 1 Description Walking Device Used FWW Level of Assistance SBA Surface Level Distance/Duration 150 ft x2 Treatment Focus Pushing walker and not leaning on walker. Walker only for balance support. Comments Continuous cuing to increase hip and knee flexion at swing. As fatigues shuffles feet left more than right. Cuing for heel to toe progression. PT-OP-T Assessment and Plan Start: 08/03/19 15:44 Freq: Status: Active Protocol: Document 08/10/19 14:30 NFW (Rec: 08/10/19 17:01 NFW [id number]) Physical Therapy Assessment Goals Four Impairment Low functional level Short Term Goal (STG) Perform light cooking activities at home. STG Duration 09/14/19 Behavioral Sciences Department Chair Goal (LTG) Greater ease getting in and out of car. LTG Duration 10/26/19 Three Impairment Poor Balance Behavioral Sciences Department Chair Goal (LTG) Improve Li Balance Score to 20-39% impaired. LTG Duration 10/26/19 Two Impairment Slow walking pace Short Term Goal (STG) Improve Timed Up and Go Test without the use of assistive devices to 30 seconds. STG Duration 09/14/19 Care Home Goal (LTG) Improve Timed Up and Go Test without use of assistive devices to 15 seconds. LTG Duration 10/26/19 One Impairment Low confidence in functional abilities Short Term Goal (STG) Improve ABC scale score from 60-80% impaired to 40-60% STG Duration 09/14/19 Care Home Goal (LTG) Improve ABC scale score to 20- 40% impaired LTG Duration 10/26/19 Assessment Summary Assessment Patient made significant improvement in increasing her walking pace with continuous cuing throughout. Also able to accomplish sitting up from supine with cuing only. Physical Therapy Plan Frequency and Duration Frequency of Treatment 2x/Week Duration of Treatment 3 months Plan of Care Start Date 08/03/19 Plan of Care End Date 10/26/19 Next Visit Focus/Plan Next Note Type Treatment Note Next Visit Plan Follow through with exercises established. Advance in walking. Possibly recumbent stepper?
--- NOTE | 2019-08-12 16:44 | PT.OTN ---
Current Diagnoses Unspecified abnormalities of gait and mobility (08/12/19) Physical Therapy Treatment Note PT-OP-A Visit Information Start: 08/03/19 15:44 Freq: Status: Active Protocol: Document 08/12/19 14:30 NFW (Rec: 08/12/19 16:44 NFW [id number]) Out-Patient Physical Therapy Visit Information Visit Information Visit Type Treatment Note Visit Start Time 14:30 Visit Stop Time 15:15 Total Visit Minutes 45 Visit Number 3 Number of GROUND HOST/HOSTESS Visits 0 PT-OP-B Current Condition Start: 08/03/19 15:44 Freq: Status: Active Protocol: Document 08/03/19 14:30 NFW (Rec: 08/03/19 17:01 NFW [id number]) Current Condition History of Current Condition Current Complaints Overall decrease of functional abilities. 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 Pt was hospitalized in rehab for ~ 3 mos one year ago secondary to raheel the flu. Over the past couple of years she has noticed progressive weakness in her LEs and limitations in performing her normal daily activities. Treatment Goals Patient/Caregiver Goals Greater ease getting in and out of car. Be able to travel by plane with . Be able to cook meals again. Prior Functional Status Baseline Function- ADL's Modified Independent Baseline Function- Mobility Modified Independent Current Functional Impairments (Reported) Functional Limitations- ADL's Requires assist with shoes and socks. Functional Limitations- Mobility/Gait Ambulates with FWW, depends heavily onto UEs. Functional Limitations- Work/School Has not been able to cook, sweep the floor, rake the leaves for quite some time. Functional Limitations- Recreation/ Going out to the mall or a Hobbies carnival with her grandkids. Functional Limitations- Other Difficulty getting in and out of the car. PT-OP-C Subjective Start: 08/03/19 15:44 Freq: Status: Active Protocol: Document 08/12/19 14:30 NFW (Rec: 08/12/19 16:44 NFW [id number]) OP-PT Subjective Patient Comments Patient Comments No complaints. states that getting in and out of car is getting easier. PT-OP-D Balance Start: 08/03/19 15:44 Freq: Status: Active Protocol: Document 08/03/19 14:30 NFW (Rec: 08/03/19 17:01 [facility] [id number]) Balance Tests Li Balance Test Li Balance Test Score 28/56 Li Impairment Rating 40 to 59% Impaired (Score 23- 33) Romberg Romberg unable Single Limb Standing Single Limb- Right unable Single Limb- Left unable Tinetti Balance Assessment Sitting Balance Sitting Balance Leans or slides in chair Arising from Chair Ability to Arise Able, uses arms to help Attempts to Arise Arises on 1st attempt Standing Balance Immediate Standing Balance Steady with support Standing Balance Steady, wide stance Nudged Response Steady Standing with Eyes Closed Unsteady Turning Step Pattern Turning 360 Degrees Continuous steps Stability Turning 360 Degrees Steady Sitting Down Sitting Down Uses arms or unsteady Gait and Step Initiation of Gait Hesitancy, mult. attempts Right Foot Step Length Does pass stance foot Right Foot Step Height Completely clears floor Left Foot Step Length Does pass stance foot Left Foot Step Height Does not clear floor Step Description Step Symmetry Step length not equal Step Continuity Steps appear continuous Gait Description Path Description Mild/moderate deviation Trunk Description No sway but posturing Walking Stance Heels apart Scoring and Interpretation Tinetti Composite Score (points) 16 Interpretation of Scores High risk for falls(< 19) Tinetti Impairment Rating from Composite 40 to <60% Impaired (Score 12- Score 16) PT-OP-E Functional Tests Start: 08/03/19 15:44 Freq: Status: Active Protocol: Document 08/03/19 14:30 NFW (Rec: 08/03/19 17:01 [facility] [id number]) Functional Tests Timed Up and Go (TUG) Score 42 seconds Comments performed with no assistive device TUG Impairment Rating 100% Impaired (Score 20) Tinetti Balance and Gait Assessment Gait Score Impairment Rating 40 to <60% Impaired (Score 5-7 ) PT-OP-G Mobility & Gait Start: 08/03/19 15:44 Freq: Status: Active Protocol: Document 08/03/19 14:30 NFW (Rec: 08/03/19 17:01 [facility] [id number]) OP Mobility Evaluation Bed Mobility Rolling Able to roll side to side with cuing. Supine to and from Sit Independent. Sit to supine, extreme difficulty doing this activity the recommended way (sitting down then rolling to side to back). At home she faces the bed, puts one knee up then reaches forward with hand and grabs mattress/sheets to pull herself forward. She does say she flops down into bed. Transfers Sit to Stand Independent with use of BUEs. Bed to Chair Transfers Independendt with use of BUEs. Car Transfers Did not test, but patient and report that this is a very difficult activity for them to perform. Floor Transfers Did not test, but do not feel patient would be able to lift her weight up off the floor. Functional Movements Lifting and Carrying None Squats No Running Assessment No OP Gait Assessment Gait Gait Assistance Required: Standby Assistance,1 Person Assist Distance (Feet) 50 Assistive Devices Assistive Device Front Wheeled Walker Gait Deviations General Gait Pattern Decreased Stride Length, Decreased Feet Clearance, Flexed Trunk,Wide Based Gait Factors Limiting Gait Function Factors Limiting Gait Function Abnormal Tonal Influences, Decreased Activity Tolerance, Decreased Strength, Incoordination,Limited Range of Motion,Poor Balance,Poor Safety Awareness Comments Gait Comments Gait slow and shuffled especially with left LE. PT-OP-J Posture/Palpation/Skin Start: 08/03/19 15:44 Freq: Status: Active Protocol: Document 08/03/19 14:30 NFW (Rec: 08/03/19 17:01 [facility] [id number]) Posture Evaluation Position Standing Head/C-Spine Posture Forward Head T-Spine Posture Increased Kyphosis L-Spine Posture Decreased Lordosis Shoulder Posture (L) Rounded,(R) Rounded Scapula Posture (L) Protracted,(R) Protracted Pelvis Posture (R) Iliac Crest Superior Weight Distribution Weight Shifted Right Hip Posture (L) Externally Rotated,(L) Abducted Knee Posture (R) Genu Recurvatum Skin Assessment Edema Assessment Bilateral Foot Edema Type Pitting Edema Degree 3+ Edema Appearance Firm,Puffy,Taut Comments Significant edema lower leg into ankles and feet, left much moreso than right PT-OP-K Range of Motion Start: 08/03/19 15:44 Freq: Status: Active Protocol: Document 08/03/19 14:30 NFW (Rec: 08/03/19 17:01 [facility] [id number]) Hip Goniometric Range of Motion Hip Left Active Hip ROM WFL No Testing Position Supine Flexion w/Knee Flexed 90 Straight Leg Raise 30 Abduction 20 External Rotation 20 Right Active Hip ROM WFL No Testing Position Supine Flexion w/Knee Flexed 90 Straight Leg Raise 60 Abduction 30 External Rotation 30 Hip ROM Limitations Hip ROM Limitations Soft Tissue Tightness,Muscle Weakness,Muscle Tone,Swelling Knee Goniometric Range of Motion Knee Left Knee ROM WFL Yes Right Knee ROM WFL Yes PT-OP-M Strength Start: 08/03/19 15:44 Freq: Status: Active Protocol: Document 08/03/19 14:30 NFW (Rec: 08/03/19 17:01 NFW [id number]) Hip Strength Hip Manual Muscle Testing Left Flexion (L2) 3+ Fair+ Comments Other muscle groups not tested due to difficulty in getting in proper position. Right Flexion (L2) 4 Good Comments Other muscle groups not tested due to difficulty in getting in proper position. Knee Strength Knee Manual Muscle Testing Left Flexion (S2) 3+ Fair+ Extension (L3) 3+ Fair+ Right Flexion (S2) 4 Good Extension (L3) 4 Good Ankle/Foot Strength Ankle and Foot Manual Muscle Testing Left Dorsiflexion (L4) 4 Good Right Dorsiflexion (L4) 4 Good Toe Strength Toe Manual Muscle Testing Left Great Toe Extension 3 Fair Right Great Toe Extension 4 Good PT-OP-Q Treatments Start: 08/03/19 15:44 Freq: Status: Active Protocol: Document 08/12/19 14:30 NFW (Rec: 08/12/19 16:44 NFW [id number]) Cardio Equipment Recumbent Elliptical (BiodZuzuChe) Duration (Minutes) 5 Resistance 3 Therapeutic Exercises Supine Exercises 4 Supine Exercise Name Bridge Side bilateral Reps/Minutes 10 x, 5 sec holds 3 Supine Exercise Name Isometric Hip Abduction Side bilateral Equipment Used Tband - Level 6 Reps/Minutes 10 x, 5 sec holds 2 Supine Exercise Name Isometric Hip Adduction Side bilateral Equipment Used 9 ball Reps/Minutes 10 x , 5 sec holds 1 Supine Exercise Name Glut Sets, legs extended Side bilateral Reps/Minutes 10 x, 5 sec holds Standing Exercises 4 Standing Exercise Name Mini Squats Side bilateral Equipment Used FWW Reps/Minutes 15 x 3 Standing Exercise Name Hip Extension Side bilateral Equipment Used FWW Reps/Minutes 15 x Comments Alternating sides 2 Standing Exercise Name Hip Abduction Side bilateral Equipment Used FWW Reps/Minutes 15 x Comments Alternating sides 1 Standing Exercise Name March Side bilateral Equipment Used FWW Reps/Minutes 15 x Therapeutic Activity Therapeutic Activity 3 Name Up from floor Comments Did not have patient do this activity but showed pt the proper technique of getting up using a piece of furniture. 2 Name Sit to Stand Reps/Minutes 3 Comments From ~21. Significantly improved. Occ cuing. 1 Name Supine to Sitting Reps/Minutes x3 Comments Cuing to roll completely to side before trying to sit up. Accomplished task independently each time. Gait Training Gait Activity 1 Description Walking Device Used FWW Level of Assistance SBA Surface Level Distance/Duration 150', 50' Treatment Focus Pushing walker and not leaning on walker. Walker only for balance support. Comments Continuous cuing to increase hip and knee flexion at swing. As fatigues shuffles feet left more than right. Cuing for heel to toe progression and for lifting feet. PT-OP-T Assessment and Plan Start: 08/03/19 15:44 Freq: Status: Active Protocol: Document 08/12/19 14:30 NFW (Rec: 08/12/19 16:44 NFW [id number]) Physical Therapy Assessment Goals Four Impairment Low functional level Short Term Goal (STG) Perform light cooking activities at home. STG Duration 09/14/19 Assisted Goal (LTG) Greater ease getting in and out of car. LTG Duration 10/26/19 Three Impairment Poor Balance Assisted Goal (LTG) Improve Li Balance Score to 20-39% impaired. LTG Duration 10/26/19 Two Impairment Slow walking pace Short Term Goal (STG) Improve Timed Up and Go Test without the use of assistive devices to 30 seconds. STG Duration 09/14/19 Concrete Inspector Goal (LTG) Improve Timed Up and Go Test without use of assistive devices to 15 seconds. LTG Duration 10/26/19 One Impairment Low confidence in functional abilities Short Term Goal (STG) Improve ABC scale score from 60-80% impaired to 40-60% STG Duration 09/14/19 Concrete Inspector Goal (LTG) Improve ABC scale score to 20- 40% impaired LTG Duration 10/26/19 Assessment Summary Assessment Patient follows through with treatment nicely and with good effort. Strength UE & LE have improved with activities of up and down from bed and chair but insufficient for stairs, ramps or up from floor . Physical Therapy Plan Frequency and Duration Frequency of Treatment 2x/Week Duration of Treatment 3 months Plan of Care Start Date 08/03/19 Plan of Care End Date 10/26/19 Next Visit Focus/Plan Next Note Type Treatment Note Next Visit Plan Progress in strengthening exercises LE as she is able. Cont with gait training and bed mobilities.
--- NOTE | 2019-08-16 14:30 | PT.OTN ---
Current Diagnoses Unspecified abnormalities of gait and mobility (08/16/19) Physical Therapy Treatment Note PT-OP-A Visit Information Start: 08/03/19 15:44 Freq: Status: Active Protocol: Document 08/16/19 13:47 SP (Rec: 08/16/19 15:53 SP [id number]) Out-Patient Physical Therapy Visit Information Visit Information Visit Type Treatment Note Visit Start Time 13:47 Visit Stop Time 14:30 Total Visit Minutes 43 Visit Number 01/16 Number of GEODETIC ADVISOR Visits 1 PT-OP-B Current Condition Start: 08/03/19 15:44 Freq: Status: Active Protocol: Document 08/03/19 14:30 NFW (Rec: 08/03/19 17:01 NFW [id number]) Current Condition History of Current Condition Current Complaints Overall decrease of functional abilities. 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 Pt was hospitalized in rehab for ~ 3 mos one year ago secondary to raheel the flu. Over the past couple of years she has noticed progressive weakness in her LEs and limitations in performing her normal daily activities. Treatment Goals Patient/Caregiver Goals Greater ease getting in and out of car. Be able to travel by plane with . Be able to cook meals again. Prior Functional Status Baseline Function- ADL's Modified Independent Baseline Function- Mobility Modified Independent Current Functional Impairments (Reported) Functional Limitations- ADL's Requires assist with shoes and socks. Functional Limitations- Mobility/Gait Ambulates with FWW, depends heavily onto UEs. Functional Limitations- Work/School Has not been able to cook, sweep the floor, rake the leaves for quite some time. Functional Limitations- Recreation/ Going out to the mall or a Hobbies carnival with her grandkids. Functional Limitations- Other Difficulty getting in and out of the car. PT-OP-C Subjective Start: 08/03/19 15:44 Freq: Status: Active Protocol: Document 08/16/19 13:47 SP (Rec: 08/16/19 15:53 SP [id number]) OP-PT Subjective Patient Comments Patient Comments Pt reported no complaints today. Took some tylenol today and helps with occasional LBP but not prePT. PT-OP-D Balance Start: 08/03/19 15:44 Freq: Status: Active Protocol: Document 08/03/19 14:30 NFW (Rec: 08/03/19 17:01 [facility] [id number]) Balance Tests Li Balance Test Li Balance Test Score 28/56 Li Impairment Rating 40 to 59% Impaired (Score 23- 33) Romberg Romberg unable Single Limb Standing Single Limb- Right unable Single Limb- Left unable Tinetti Balance Assessment Sitting Balance Sitting Balance Leans or slides in chair Arising from Chair Ability to Arise Able, uses arms to help Attempts to Arise Arises on 1st attempt Standing Balance Immediate Standing Balance Steady with support Standing Balance Steady, wide stance Nudged Response Steady Standing with Eyes Closed Unsteady Turning Step Pattern Turning 360 Degrees Continuous steps Stability Turning 360 Degrees Steady Sitting Down Sitting Down Uses arms or unsteady Gait and Step Initiation of Gait Hesitancy, mult. attempts Right Foot Step Length Does pass stance foot Right Foot Step Height Completely clears floor Left Foot Step Length Does pass stance foot Left Foot Step Height Does not clear floor Step Description Step Symmetry Step length not equal Step Continuity Steps appear continuous Gait Description Path Description Mild/moderate deviation Trunk Description No sway but posturing Walking Stance Heels apart Scoring and Interpretation Tinetti Composite Score (points) 16 Interpretation of Scores High risk for falls(< 19) Tinetti Impairment Rating from Composite 40 to <60% Impaired (Score 12- Score 16) PT-OP-E Functional Tests Start: 08/03/19 15:44 Freq: Status: Active Protocol: Document 08/03/19 14:30 NFW (Rec: 08/03/19 17:01 [facility] [id number]) Functional Tests Timed Up and Go (TUG) Score 42 seconds Comments performed with no assistive device TUG Impairment Rating 100% Impaired (Score 20) Tinetti Balance and Gait Assessment Gait Score Impairment Rating 40 to <60% Impaired (Score 5-7 ) PT-OP-G Mobility & Gait Start: 08/03/19 15:44 Freq: Status: Active Protocol: Document 08/03/19 14:30 NFW (Rec: 08/03/19 17:01 [facility] [id number]) OP Mobility Evaluation Bed Mobility Rolling Able to roll side to side with cuing. Supine to and from Sit Independent. Sit to supine, extreme difficulty doing this activity the recommended way (sitting down then rolling to side to back). At home she faces the bed, puts one knee up then reaches forward with hand and grabs mattress/sheets to pull herself forward. She does say she flops down into bed. Transfers Sit to Stand Independent with use of BUEs. Bed to Chair Transfers Independendt with use of BUEs. Car Transfers Did not test, but patient and report that this is a very difficult activity for them to perform. Floor Transfers Did not test, but do not feel patient would be able to lift her weight up off the floor. Functional Movements Lifting and Carrying None Squats No Running Assessment No OP Gait Assessment Gait Gait Assistance Required: Standby Assistance,1 Person Assist Distance (Feet) 50 Assistive Devices Assistive Device Front Wheeled Walker Gait Deviations General Gait Pattern Decreased Stride Length, Decreased Feet Clearance, Flexed Trunk,Wide Based Gait Factors Limiting Gait Function Factors Limiting Gait Function Abnormal Tonal Influences, Decreased Activity Tolerance, Decreased Strength, Incoordination,Limited Range of Motion,Poor Balance,Poor Safety Awareness Comments Gait Comments Gait slow and shuffled especially with left LE. PT-OP-J Posture/Palpation/Skin Start: 08/03/19 15:44 Freq: Status: Active Protocol: Document 08/03/19 14:30 NFW (Rec: 08/03/19 17:01 [facility] [id number]) Posture Evaluation Position Standing Head/C-Spine Posture Forward Head T-Spine Posture Increased Kyphosis L-Spine Posture Decreased Lordosis Shoulder Posture (L) Rounded,(R) Rounded Scapula Posture (L) Protracted,(R) Protracted Pelvis Posture (R) Iliac Crest Superior Weight Distribution Weight Shifted Right Hip Posture (L) Externally Rotated,(L) Abducted Knee Posture (R) Genu Recurvatum Skin Assessment Edema Assessment Bilateral Foot Edema Type Pitting Edema Degree 3+ Edema Appearance Firm,Puffy,Taut Comments Significant edema lower leg into ankles and feet, left much moreso than right PT-OP-K Range of Motion Start: 08/03/19 15:44 Freq: Status: Active Protocol: Document 08/03/19 14:30 NFW (Rec: 08/03/19 17:01 [facility] [id number]) Hip Goniometric Range of Motion Hip Left Active Hip ROM WFL No Testing Position Supine Flexion w/Knee Flexed 90 Straight Leg Raise 30 Abduction 20 External Rotation 20 Right Active Hip ROM WFL No Testing Position Supine Flexion w/Knee Flexed 90 Straight Leg Raise 60 Abduction 30 External Rotation 30 Hip ROM Limitations Hip ROM Limitations Soft Tissue Tightness,Muscle Weakness,Muscle Tone,Swelling Knee Goniometric Range of Motion Knee Left Knee ROM WFL Yes Right Knee ROM WFL Yes PT-OP-M Strength Start: 08/03/19 15:44 Freq: Status: Active Protocol: Document 08/03/19 14:30 NFW (Rec: 08/03/19 17:01 NFW [id number]) Hip Strength Hip Manual Muscle Testing Left Flexion (L2) 3+ Fair+ Comments Other muscle groups not tested due to difficulty in getting in proper position. Right Flexion (L2) 4 Good Comments Other muscle groups not tested due to difficulty in getting in proper position. Knee Strength Knee Manual Muscle Testing Left Flexion (S2) 3+ Fair+ Extension (L3) 3+ Fair+ Right Flexion (S2) 4 Good Extension (L3) 4 Good Ankle/Foot Strength Ankle and Foot Manual Muscle Testing Left Dorsiflexion (L4) 4 Good Right Dorsiflexion (L4) 4 Good Toe Strength Toe Manual Muscle Testing Left Great Toe Extension 3 Fair Right Great Toe Extension 4 Good PT-OP-Q Treatments Start: 08/03/19 15:44 Freq: Status: Active Protocol: Document 08/16/19 13:47 SP (Rec: 08/16/19 15:53 SP [id number]) Cardio Equipment Recumbent Elliptical (Biodex) Duration (Minutes) 5 Resistance 4 Seat Position 7 Therapeutic Exercises Standing Exercises heel raises Standing Exercise Name heel raises Side bilateral Resistance AROM Equipment Used FWW Reps/Minutes x15 3 Standing Exercise Name Hip Extension Side bilateral Equipment Used FWW Reps/Minutes 15 x 2 Comments Alternating sides 2 Standing Exercise Name Hip Abduction Side bilateral Equipment Used FWW Reps/Minutes 15 x2 Comments Alternating sides 1 Standing Exercise Name March Side bilateral Equipment Used FWW Reps/Minutes 15 x 2 Gait Training Gait Activity 1 Description Walking Device Used FWW Level of Assistance SBA Surface Level Distance/Duration 88 ft x2 Treatment Focus Pushing walker and not leaning on walker. Walker only for balance support. Comments Continuous cuing to increase L hip and knee flexion at swing . As fatigues shuffles feet left more than right. Cuing for heel to toe progression and for lifting feet. PT-OP-T Assessment and Plan Start: 08/03/19 15:44 Freq: Status: Active Protocol: Document 08/16/19 13:47 SP (Rec: 08/16/19 15:53 SP [id number]) Physical Therapy Assessment Goals Four Impairment Low functional level Short Term Goal (STG) Perform light cooking activities at home. STG Duration 09/14/19 Halfway Goal (LTG) Greater ease getting in and out of car. LTG Duration 10/26/19 Three Impairment Poor Balance Textile Colorist Formulator Goal (LTG) Improve Li Balance Score to 20-39% impaired. LTG Duration 10/26/19 Two Impairment Slow walking pace Short Term Goal (STG) Improve Timed Up and Go Test without the use of assistive devices to 30 seconds. STG Duration 09/14/19 Halfway Goal (LTG) Improve Timed Up and Go Test without use of assistive devices to 15 seconds. LTG Duration 10/26/19 One Impairment Low confidence in functional abilities Short Term Goal (STG) Improve ABC scale score from 60-80% impaired to 40-60% STG Duration 09/14/19 Halfway Goal (LTG) Improve ABC scale score to 20- 40% impaired LTG Duration 10/26/19 Assessment Summary Assessment Pt reports compliant with HEP walking as home per suggestion : reviewed standing exercises and was able to do 2 sets today with seated rest between sets, good recall and added heel raises with provided visual hand outs for home recall. Pt was able to increase Biodex resistance of 4 today same 5 min. Pt continued cuing for increased stride length and foot clearance L>R LE. Pt requires occasional cuing for limiting conversation with focus to task at hand for quality tx time with verbal agreement. Pt was able to increase her pacing during gait by end of tx with increased self corrections of foot clearance. Physical Therapy Plan Frequency and Duration Frequency of Treatment 2x/Week Duration of Treatment 3 months Plan of Care Start Date 08/03/19 Plan of Care End Date 10/26/19 Therapeutic Interventions Therapeutic Interventions Balance Training,Coordination Training,Gait Training,Home Exercise Program,Self-Care/ Home Management,Therapeutic Activities,Therapeutic Exercises Other Therapeutic Interventions May need lymphedema management in the future. Next Visit Focus/Plan Next Note Type Treatment Note Next Visit Plan Review standing HEP with FWW. Assess tolerance with increased reps and resistance with Biodex today. POC: Progress in strengthening exercises LE as she is able. Cont with gait training and bed mobilities.
--- NOTE | 2019-08-18 14:36 | PT.OTN ---
Current Diagnoses Unspecified abnormalities of gait and mobility (08/18/19) Physical Therapy Treatment Note PT-OP-A Visit Information Start: 08/03/19 15:44 Freq: Status: Active Protocol: Document 08/18/19 14:28 SP (Rec: 08/18/19 15:36 SP [id number]) Out-Patient Physical Therapy Visit Information Visit Information Visit Type Treatment Note Visit Start Time 13:50 Visit Stop Time 14:36 Total Visit Minutes 46 Visit Number 02/15 Number of LEGAL SUPPORT SPECIALIST Visits 2 PT-OP-B Current Condition Start: 08/03/19 15:44 Freq: Status: Active Protocol: Document 08/03/19 14:30 NFW (Rec: 08/03/19 17:01 NFW [id number]) Current Condition History of Current Condition Current Complaints Overall decrease of functional abilities. 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 Pt was hospitalized in rehab for ~ 3 mos one year ago secondary to raheel the flu. Over the past couple of years she has noticed progressive weakness in her LEs and limitations in performing her normal daily activities. Treatment Goals Patient/Caregiver Goals Greater ease getting in and out of car. Be able to travel by plane with . Be able to cook meals again. Prior Functional Status Baseline Function- ADL's Modified Independent Baseline Function- Mobility Modified Independent Current Functional Impairments (Reported) Functional Limitations- ADL's Requires assist with shoes and socks. Functional Limitations- Mobility/Gait Ambulates with FWW, depends heavily onto UEs. Functional Limitations- Work/School Has not been able to cook, sweep the floor, rake the leaves for quite some time. Functional Limitations- Recreation/ Going out to the mall or a Hobbies carnival with her grandkids. Functional Limitations- Other Difficulty getting in and out of the car. PT-OP-C Subjective Start: 08/03/19 15:44 Freq: Status: Active Protocol: Document 08/18/19 14:28 SP (Rec: 08/18/19 15:36 SP [id number]) OP-PT Subjective Patient Comments Patient Comments Pt reported no pain or complaints today. I didn't get new shoes yet and L sandle still scuffing the floor. I am doing my standing exercises and walks in the house at home. PT-OP-D Balance Start: 08/03/19 15:44 Freq: Status: Active Protocol: Document 08/03/19 14:30 NFW (Rec: 08/03/19 17:01 NF [id number]) Balance Tests Li Balance Test Li Balance Test Score 28/56 Li Impairment Rating 40 to 59% Impaired (Score 23- 33) Romberg Romberg unable Single Limb Standing Single Limb- Right unable Single Limb- Left unable Tinetti Balance Assessment Sitting Balance Sitting Balance Leans or slides in chair Arising from Chair Ability to Arise Able, uses arms to help Attempts to Arise Arises on 1st attempt Standing Balance Immediate Standing Balance Steady with support Standing Balance Steady, wide stance Nudged Response Steady Standing with Eyes Closed Unsteady Turning Step Pattern Turning 360 Degrees Continuous steps Stability Turning 360 Degrees Steady Sitting Down Sitting Down Uses arms or unsteady Gait and Step Initiation of Gait Hesitancy, mult. attempts Right Foot Step Length Does pass stance foot Right Foot Step Height Completely clears floor Left Foot Step Length Does pass stance foot Left Foot Step Height Does not clear floor Step Description Step Symmetry Step length not equal Step Continuity Steps appear continuous Gait Description Path Description Mild/moderate deviation Trunk Description No sway but posturing Walking Stance Heels apart Scoring and Interpretation Tinetti Composite Score (points) 16 Interpretation of Scores High risk for falls(< 19) Tinetti Impairment Rating from Composite 40 to <60% Impaired (Score 12- Score 16) PT-OP-E Functional Tests Start: 08/03/19 15:44 Freq: Status: Active Protocol: Document 08/03/19 14:30 NFW (Rec: 08/03/19 17:01 [facility] [id number]) Functional Tests Timed Up and Go (TUG) Score 42 seconds Comments performed with no assistive device TUG Impairment Rating 100% Impaired (Score 20) Tinetti Balance and Gait Assessment Gait Score Impairment Rating 40 to <60% Impaired (Score 5-7 ) PT-OP-G Mobility & Gait Start: 08/03/19 15:44 Freq: Status: Active Protocol: Document 08/03/19 14:30 NFW (Rec: 08/03/19 17:01 [facility] [id number]) OP Mobility Evaluation Bed Mobility Rolling Able to roll side to side with cuing. Supine to and from Sit Independent. Sit to supine, extreme difficulty doing this activity the recommended way (sitting down then rolling to side to back). At home she faces the bed, puts one knee up then reaches forward with hand and grabs mattress/sheets to pull herself forward. She does say she flops down into bed. Transfers Sit to Stand Independent with use of BUEs. Bed to Chair Transfers Independendt with use of BUEs. Car Transfers Did not test, but patient and report that this is a very difficult activity for them to perform. Floor Transfers Did not test, but do not feel patient would be able to lift her weight up off the floor. Functional Movements Lifting and Carrying None Squats No Running Assessment No OP Gait Assessment Gait Gait Assistance Required: Standby Assistance,1 Person Assist Distance (Feet) 50 Assistive Devices Assistive Device Front Wheeled Walker Gait Deviations General Gait Pattern Decreased Stride Length, Decreased Feet Clearance, Flexed Trunk,Wide Based Gait Factors Limiting Gait Function Factors Limiting Gait Function Abnormal Tonal Influences, Decreased Activity Tolerance, Decreased Strength, Incoordination,Limited Range of Motion,Poor Balance,Poor Safety Awareness Comments Gait Comments Gait slow and shuffled especially with left LE. PT-OP-J Posture/Palpation/Skin Start: 08/03/19 15:44 Freq: Status: Active Protocol: Document 08/03/19 14:30 NFW (Rec: 08/03/19 17:01 [facility] [id number]) Posture Evaluation Position Standing Head/C-Spine Posture Forward Head T-Spine Posture Increased Kyphosis L-Spine Posture Decreased Lordosis Shoulder Posture (L) Rounded,(R) Rounded Scapula Posture (L) Protracted,(R) Protracted Pelvis Posture (R) Iliac Crest Superior Weight Distribution Weight Shifted Right Hip Posture (L) Externally Rotated,(L) Abducted Knee Posture (R) Genu Recurvatum Skin Assessment Edema Assessment Bilateral Foot Edema Type Pitting Edema Degree 3+ Edema Appearance Firm,Puffy,Taut Comments Significant edema lower leg into ankles and feet, left much moreso than right PT-OP-K Range of Motion Start: 08/03/19 15:44 Freq: Status: Active Protocol: Document 08/03/19 14:30 NFW (Rec: 08/03/19 17:01 W [id number]) Hip Goniometric Range of Motion Hip Left Active Hip ROM WFL No Testing Position Supine Flexion w/Knee Flexed 90 Straight Leg Raise 30 Abduction 20 External Rotation 20 Right Active Hip ROM WFL No Testing Position Supine Flexion w/Knee Flexed 90 Straight Leg Raise 60 Abduction 30 External Rotation 30 Hip ROM Limitations Hip ROM Limitations Soft Tissue Tightness,Muscle Weakness,Muscle Tone,Swelling Knee Goniometric Range of Motion Knee Left Knee ROM WFL Yes Right Knee ROM WFL Yes PT-OP-M Strength Start: 08/03/19 15:44 Freq: Status: Active Protocol: Document 08/03/19 14:30 NFW (Rec: 08/03/19 17:01 NFW [id number]) Hip Strength Hip Manual Muscle Testing Left Flexion (L2) 3+ Fair+ Comments Other muscle groups not tested due to difficulty in getting in proper position. Right Flexion (L2) 4 Good Comments Other muscle groups not tested due to difficulty in getting in proper position. Knee Strength Knee Manual Muscle Testing Left Flexion (S2) 3+ Fair+ Extension (L3) 3+ Fair+ Right Flexion (S2) 4 Good Extension (L3) 4 Good Ankle/Foot Strength Ankle and Foot Manual Muscle Testing Left Dorsiflexion (L4) 4 Good Right Dorsiflexion (L4) 4 Good Toe Strength Toe Manual Muscle Testing Left Great Toe Extension 3 Fair Right Great Toe Extension 4 Good PT-OP-Q Treatments Start: 08/03/19 15:44 Freq: Status: Active Protocol: Document 08/18/19 14:28 SP (Rec: 08/18/19 15:36 SP [id number]) Therapeutic Exercises Standing Exercises heel raises Standing Exercise Name heel raises Side bilateral Resistance AROM Equipment Used rail Reps/Minutes 2x18 3 Standing Exercise Name Hip Extension Side bilateral Equipment Used rail Reps/Minutes 18 x 2 Comments Alternating sides 2 Standing Exercise Name Hip Abduction Side bilateral Equipment Used rail Reps/Minutes 18 x2 Comments Alternating sides 1 Standing Exercise Name March Side bilateral Equipment Used rail Reps/Minutes 18 x 2 Gait Training Gait Activity 1 Description Walking Device Used FWW Level of Assistance SBA Surface Level Distance/Duration 90 ft x2 Treatment Focus Pushing walker and not leaning on walker. Walker only for balance support. Comments Continuous cuing to increase L hip and knee flexion at swing . As fatigues shuffles feet left more than right. Max Cuing for heel to toe progression and for lifting feet. Neuro Re-Education Treatment Balance Activities hurdles Details forward, side stepping Surface level Equipment FWW 1 lap each, 1 HR each direction Reps/Duration 10 ft x 2 laps each Comments cued for high knee lift, foot clearance to clear melina. focus increase stride length and LE strengthening endurance . PT-OP-T Assessment and Plan Start: 08/03/19 15:44 Freq: Status: Active Protocol: Document 08/18/19 14:28 SP (Rec: 08/18/19 15:36 SP [id number]) Physical Therapy Assessment Goals Four Impairment Low functional level Short Term Goal (STG) Perform light cooking activities at home. STG Duration 09/14/19 Radiator Tester Goal (LTG) Greater ease getting in and out of car. LTG Duration 10/26/19 Three Impairment Poor Balance [facility] Goal (LTG) Improve Li Balance Score to 20-39% impaired. LTG Duration 10/26/19 Two Impairment Slow walking pace Short Term Goal (STG) Improve Timed Up and Go Test without the use of assistive devices to 30 seconds. STG Duration 09/14/19 [facility] Goal (LTG) Improve Timed Up and Go Test without use of assistive devices to 15 seconds. LTG Duration 10/26/19 One Impairment Low confidence in functional abilities Short Term Goal (STG) Improve ABC scale score from 60-80% impaired to 40-60% STG Duration 09/14/19 Radiator Tester Goal (LTG) Improve ABC scale score to 20- 40% impaired LTG Duration 10/26/19 Assessment Summary Assessment Pt fair recall to HEP 2/5 recall. Encouraged counting and did not required seated rest between exercises today. Pt was able to tolerated increased reps and added hurdles using 1 UE support for balance, required max cuing for step/ foot clearnace during gait and hurdles to work toward normal gait. Pt required less redirection of conversation to task at hand. Physical Therapy Plan Frequency and Duration Frequency of Treatment 2x/Week Duration of Treatment 3 months Plan of Care Start Date 08/03/19 Plan of Care End Date 10/26/19 Therapeutic Interventions Therapeutic Interventions Balance Training,Coordination Training,Gait Training,Home Exercise Program,Self-Care/ Home Management,Therapeutic Activities,Therapeutic Exercises Other Therapeutic Interventions May need lymphedema management in the future. Next Visit Focus/Plan Next Note Type Treatment Note Next Visit Plan Assess added melina balance activity last tx to increase stride length and increased reps during standing ex of 18. Continue HEP review, gait and bed mobility training.
--- NOTE | 2019-08-24 15:28 | PT.OTN ---
Current Diagnoses Unspecified abnormalities of gait and mobility (08/24/19) Physical Therapy Treatment Note PT-OP-A Visit Information Start: 08/03/19 15:44 Freq: Status: Active Protocol: Document 08/24/19 14:29 LRN (Rec: 08/24/19 15:24 LRN [id number]) Out-Patient Physical Therapy Visit Information Visit Information Visit Type Treatment Note Visit Start Time 14:29 Visit Stop Time 15:12 Total Visit Minutes 43 Visit Number 03/18 Number of RESIDENCE COUNSELOR Visits 0 PT-OP-B Current Condition Start: 08/03/19 15:44 Freq: Status: Active Protocol: Document 08/03/19 14:30 NFW (Rec: 08/03/19 17:01 NFW [id number]) Current Condition History of Current Condition Current Complaints Overall decrease of functional abilities. 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 Pt was hospitalized in rehab for ~ 3 mos one year ago secondary to raheel the flu. Over the past couple of years she has noticed progressive weakness in her LEs and limitations in performing her normal daily activities. Treatment Goals Patient/Caregiver Goals Greater ease getting in and out of car. Be able to travel by plane with . Be able to cook meals again. Prior Functional Status Baseline Function- ADL's Modified Independent Baseline Function- Mobility Modified Independent Current Functional Impairments (Reported) Functional Limitations- ADL's Requires assist with shoes and socks. Functional Limitations- Mobility/Gait Ambulates with FWW, depends heavily onto UEs. Functional Limitations- Work/School Has not been able to cook, sweep the floor, rake the leaves for quite some time. Functional Limitations- Recreation/ Going out to the mall or a Hobbies carnival with her grandkids. Functional Limitations- Other Difficulty getting in and out of the car. PT-OP-C Subjective Start: 08/03/19 15:44 Freq: Status: Active Protocol: Document 08/24/19 14:29 LRN (Rec: 08/24/19 15:24 LRN [id number]) OP-PT Subjective Patient Comments Patient Comments Can't remember what she did last session. Needs most help with getting in/out of car. PT-OP-D Balance Start: 08/03/19 15:44 Freq: Status: Active Protocol: Document 08/03/19 14:30 NFW (Rec: 08/03/19 17:01 [facility] [id number]) Balance Tests Li Balance Test Li Balance Test Score 28/56 Li Impairment Rating 40 to 59% Impaired (Score 23- 33) Romberg Romberg unable Single Limb Standing Single Limb- Right unable Single Limb- Left unable Tinetti Balance Assessment Sitting Balance Sitting Balance Leans or slides in chair Arising from Chair Ability to Arise Able, uses arms to help Attempts to Arise Arises on 1st attempt Standing Balance Immediate Standing Balance Steady with support Standing Balance Steady, wide stance Nudged Response Steady Standing with Eyes Closed Unsteady Turning Step Pattern Turning 360 Degrees Continuous steps Stability Turning 360 Degrees Steady Sitting Down Sitting Down Uses arms or unsteady Gait and Step Initiation of Gait Hesitancy, mult. attempts Right Foot Step Length Does pass stance foot Right Foot Step Height Completely clears floor Left Foot Step Length Does pass stance foot Left Foot Step Height Does not clear floor Step Description Step Symmetry Step length not equal Step Continuity Steps appear continuous Gait Description Path Description Mild/moderate deviation Trunk Description No sway but posturing Walking Stance Heels apart Scoring and Interpretation Tinetti Composite Score (points) 16 Interpretation of Scores High risk for falls(< 19) Tinetti Impairment Rating from Composite 40 to <60% Impaired (Score 12- Score 16) PT-OP-E Functional Tests Start: 08/03/19 15:44 Freq: Status: Active Protocol: Document 08/03/19 14:30 NFW (Rec: 08/03/19 17:01 [facility] [id number]) Functional Tests Timed Up and Go (TUG) Score 42 seconds Comments performed with no assistive device TUG Impairment Rating 100% Impaired (Score 20) Tinetti Balance and Gait Assessment Gait Score Impairment Rating 40 to <60% Impaired (Score 5-7 ) PT-OP-G Mobility & Gait Start: 08/03/19 15:44 Freq: Status: Active Protocol: Document 08/03/19 14:30 NFW (Rec: 08/03/19 17:01 [facility] [id number]) OP Mobility Evaluation Bed Mobility Rolling Able to roll side to side with cuing. Supine to and from Sit Independent. Sit to supine, extreme difficulty doing this activity the recommended way (sitting down then rolling to side to back). At home she faces the bed, puts one knee up then reaches forward with hand and grabs mattress/sheets to pull herself forward. She does say she flops down into bed. Transfers Sit to Stand Independent with use of BUEs. Bed to Chair Transfers Independendt with use of BUEs. Car Transfers Did not test, but patient and report that this is a very difficult activity for them to perform. Floor Transfers Did not test, but do not feel patient would be able to lift her weight up off the floor. Functional Movements Lifting and Carrying None Squats No Running Assessment No OP Gait Assessment Gait Gait Assistance Required: Standby Assistance,1 Person Assist Distance (Feet) 50 Assistive Devices Assistive Device Front Wheeled Walker Gait Deviations General Gait Pattern Decreased Stride Length, Decreased Feet Clearance, Flexed Trunk,Wide Based Gait Factors Limiting Gait Function Factors Limiting Gait Function Abnormal Tonal Influences, Decreased Activity Tolerance, Decreased Strength, Incoordination,Limited Range of Motion,Poor Balance,Poor Safety Awareness Comments Gait Comments Gait slow and shuffled especially with left LE. PT-OP-J Posture/Palpation/Skin Start: 08/03/19 15:44 Freq: Status: Active Protocol: Document 08/03/19 14:30 NFW (Rec: 08/03/19 17:01 [facility] [id number]) Posture Evaluation Position Standing Head/C-Spine Posture Forward Head T-Spine Posture Increased Kyphosis L-Spine Posture Decreased Lordosis Shoulder Posture (L) Rounded,(R) Rounded Scapula Posture (L) Protracted,(R) Protracted Pelvis Posture (R) Iliac Crest Superior Weight Distribution Weight Shifted Right Hip Posture (L) Externally Rotated,(L) Abducted Knee Posture (R) Genu Recurvatum Skin Assessment Edema Assessment Bilateral Foot Edema Type Pitting Edema Degree 3+ Edema Appearance Firm,Puffy,Taut Comments Significant edema lower leg into ankles and feet, left much moreso than right PT-OP-K Range of Motion Start: 08/03/19 15:44 Freq: Status: Active Protocol: Document 08/03/19 14:30 NFW (Rec: 08/03/19 17:01 [facility] [id number]) Hip Goniometric Range of Motion Hip Left Active Hip ROM WFL No Testing Position Supine Flexion w/Knee Flexed 90 Straight Leg Raise 30 Abduction 20 External Rotation 20 Right Active Hip ROM WFL No Testing Position Supine Flexion w/Knee Flexed 90 Straight Leg Raise 60 Abduction 30 External Rotation 30 Hip ROM Limitations Hip ROM Limitations Soft Tissue Tightness,Muscle Weakness,Muscle Tone,Swelling Knee Goniometric Range of Motion Knee Left Knee ROM WFL Yes Right Knee ROM WFL Yes PT-OP-M Strength Start: 08/03/19 15:44 Freq: Status: Active Protocol: Document 08/03/19 14:30 NFW (Rec: 08/03/19 17:01 NFW [id number]) Hip Strength Hip Manual Muscle Testing Left Flexion (L2) 3+ Fair+ Comments Other muscle groups not tested due to difficulty in getting in proper position. Right Flexion (L2) 4 Good Comments Other muscle groups not tested due to difficulty in getting in proper position. Knee Strength Knee Manual Muscle Testing Left Flexion (S2) 3+ Fair+ Extension (L3) 3+ Fair+ Right Flexion (S2) 4 Good Extension (L3) 4 Good Ankle/Foot Strength Ankle and Foot Manual Muscle Testing Left Dorsiflexion (L4) 4 Good Right Dorsiflexion (L4) 4 Good Toe Strength Toe Manual Muscle Testing Left Great Toe Extension 3 Fair Right Great Toe Extension 4 Good PT-OP-Q Treatments Start: 08/03/19 15:44 Freq: Status: Active Protocol: Document 08/24/19 14:29 LRN (Rec: 08/24/19 15:24 LRN [id number]) Therapeutic Exercises Sitting Exercises Knee extension Sitting Exercise Name Knee ext Side bilateral Reps/Minutes 15x each Standing Exercises Toe raises Standing Exercise Name Toe raises Side bilateral Equipment Used Rail Reps/Minutes 15 x 2 heel raises Standing Exercise Name heel raises Side bilateral Resistance AROM Equipment Used rail Reps/Minutes 2x18 3 Standing Exercise Name Hip Extension Side bilateral Equipment Used rail Reps/Minutes 20 x 2 Comments Alternating sides 2 Standing Exercise Name Hip Abduction Side bilateral Equipment Used rail Reps/Minutes 18 x2 Comments Alternating sides 1 Standing Exercise Name March Side bilateral Equipment Used rail Reps/Minutes 18 x 2 Gait Training Gait Activity 1 Description Walking Device Used FWW Level of Assistance SBA Surface Level Distance/Duration 100 ft x2 Treatment Focus Pushing walker and not leaning on walker. Walker only for balance support. Comments Continuous cuing to increase L hip and knee flexion at swing . As fatigues shuffles feet left more than right. Max Cuing for heel to toe progression and for lifting feet. PT-OP-T Assessment and Plan Start: 08/03/19 15:44 Freq: Status: Active Protocol: Document 08/24/19 14:29 LRN (Rec: 08/24/19 15:24 LRN [id number]) Physical Therapy Assessment Goals Four Impairment Low functional level Short Term Goal (STG) Perform light cooking activities at home. STG Duration 09/14/19 Merchandise Coordinator Goal (LTG) Greater ease getting in and out of car. LTG Duration 10/26/19 Three Impairment Poor Balance Detention Goal (LTG) Improve Li Balance Score to 20-39% impaired. LTG Duration 10/26/19 Two Impairment Slow walking pace Short Term Goal (STG) Improve Timed Up and Go Test without the use of assistive devices to 30 seconds. STG Duration 09/14/19 Detention Goal (LTG) Improve Timed Up and Go Test without use of assistive devices to 15 seconds. LTG Duration 10/26/19 One Impairment Low confidence in functional abilities Short Term Goal (STG) Improve ABC scale score from 60-80% impaired to 40-60% STG Duration 09/14/19 Merchandise Coordinator Goal (LTG) Improve ABC scale score to 20- 40% impaired LTG Duration 10/26/19 Assessment Summary Assessment Pt needed I/S with HEP. Pt required seated rest after gait training while walking into ex room prior to standing ex., and after standing ex. Pt did require redirecting with ex and gait. Physical Therapy Plan Frequency and Duration Frequency of Treatment 2x/Week Duration of Treatment 3 months Plan of Care Start Date 08/03/19 Plan of Care End Date 10/26/19 Next Visit Focus/Plan Next Note Type Treatment Note Next Visit Plan Practice getting in/out of car . Assess added melina balance activity last tx to increase stride length and increased reps during standing ex of 18. Review HEP (in chart), gait and bed mobility training.
--- NOTE | 2019-09-07 13:41 | PT.OTN ---
Current Diagnoses Unspecified abnormalities of gait and mobility (09/07/19) Physical Therapy Treatment Note PT-OP-A Visit Information Start: 08/03/19 15:44 Freq: Status: Active Protocol: Document 09/07/19 12:54 LRN (Rec: 09/07/19 13:40 LRN [id number]) Out-Patient Physical Therapy Visit Information Visit Information Visit Type Treatment Note Visit Start Time 12:54 Visit Stop Time 13:38 Total Visit Minutes 44 Visit Number 04/17 Number of BUSINESS FUNCTIONAL ANALYST Visits 0 Evaluation Information Evaluation Date 08/03/19 Precautions Precautions High fall risk. PT-OP-B Current Condition Start: 08/03/19 15:44 Freq: Status: Active Protocol: Document 08/03/19 14:30 NFW (Rec: 08/03/19 17:01 NFW [id number]) Current Condition History of Current Condition Current Complaints Overall decrease of functional abilities. 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 Pt was hospitalized in rehab for ~ 3 mos one year ago secondary to raheel the flu. Over the past couple of years she has noticed progressive weakness in her LEs and limitations in performing her normal daily activities. Treatment Goals Patient/Caregiver Goals Greater ease getting in and out of car. Be able to travel by plane with . Be able to cook meals again. Prior Functional Status Baseline Function- ADL's Modified Independent Baseline Function- Mobility Modified Independent Current Functional Impairments (Reported) Functional Limitations- ADL's Requires assist with shoes and socks. Functional Limitations- Mobility/Gait Ambulates with FWW, depends heavily onto UEs. Functional Limitations- Work/School Has not been able to cook, sweep the floor, rake the leaves for quite some time. Functional Limitations- Recreation/ Going out to the mall or a Hobbies carnival with her grandkids. Functional Limitations- Other Difficulty getting in and out of the car. PT-OP-C Subjective Start: 08/03/19 15:44 Freq: Status: Active Protocol: Document 09/07/19 12:54 LRN (Rec: 09/07/19 13:40 LRN [id number]) OP-PT Subjective Patient Comments Patient Comments Brain fog since returning from [facility]. PT-OP-D Balance Start: 08/03/19 15:44 Freq: Status: Active Protocol: Document 08/03/19 14:30 NFW (Rec: 08/03/19 17:01 [facility] [id number]) Balance Tests Li Balance Test Li Balance Test Score 28/56 Li Impairment Rating 40 to 59% Impaired (Score 23- 33) Romberg Romberg unable Single Limb Standing Single Limb- Right unable Single Limb- Left unable Tinetti Balance Assessment Sitting Balance Sitting Balance Leans or slides in chair Arising from Chair Ability to Arise Able, uses arms to help Attempts to Arise Arises on 1st attempt Standing Balance Immediate Standing Balance Steady with support Standing Balance Steady, wide stance Nudged Response Steady Standing with Eyes Closed Unsteady Turning Step Pattern Turning 360 Degrees Continuous steps Stability Turning 360 Degrees Steady Sitting Down Sitting Down Uses arms or unsteady Gait and Step Initiation of Gait Hesitancy, mult. attempts Right Foot Step Length Does pass stance foot Right Foot Step Height Completely clears floor Left Foot Step Length Does pass stance foot Left Foot Step Height Does not clear floor Step Description Step Symmetry Step length not equal Step Continuity Steps appear continuous Gait Description Path Description Mild/moderate deviation Trunk Description No sway but posturing Walking Stance Heels apart Scoring and Interpretation Tinetti Composite Score (points) 16 Interpretation of Scores High risk for falls(< 19) Tinetti Impairment Rating from Composite 40 to <60% Impaired (Score 12- Score 16) PT-OP-E Functional Tests Start: 08/03/19 15:44 Freq: Status: Active Protocol: Document 08/03/19 14:30 NFW (Rec: 08/03/19 17:01 [facility] [id number]) Functional Tests Timed Up and Go (TUG) Score 42 seconds Comments performed with no assistive device TUG Impairment Rating 100% Impaired (Score 20) Tinetti Balance and Gait Assessment Gait Score Impairment Rating 40 to <60% Impaired (Score 5-7 ) PT-OP-G Mobility & Gait Start: 08/03/19 15:44 Freq: Status: Active Protocol: Document 08/03/19 14:30 NFW (Rec: 08/03/19 17:01 [facility] [id number]) OP Mobility Evaluation Bed Mobility Rolling Able to roll side to side with cuing. Supine to and from Sit Independent. Sit to supine, extreme difficulty doing this activity the recommended way (sitting down then rolling to side to back). At home she faces the bed, puts one knee up then reaches forward with hand and grabs mattress/sheets to pull herself forward. She does say she flops down into bed. Transfers Sit to Stand Independent with use of BUEs. Bed to Chair Transfers Independendt with use of BUEs. Car Transfers Did not test, but patient and report that this is a very difficult activity for them to perform. Floor Transfers Did not test, but do not feel patient would be able to lift her weight up off the floor. Functional Movements Lifting and Carrying None Squats No Running Assessment No OP Gait Assessment Gait Gait Assistance Required: Standby Assistance,1 Person Assist Distance (Feet) 50 Assistive Devices Assistive Device Front Wheeled Walker Gait Deviations General Gait Pattern Decreased Stride Length, Decreased Feet Clearance, Flexed Trunk,Wide Based Gait Factors Limiting Gait Function Factors Limiting Gait Function Abnormal Tonal Influences, Decreased Activity Tolerance, Decreased Strength, Incoordination,Limited Range of Motion,Poor Balance,Poor Safety Awareness Comments Gait Comments Gait slow and shuffled especially with left LE. PT-OP-J Posture/Palpation/Skin Start: 08/03/19 15:44 Freq: Status: Active Protocol: Document 08/03/19 14:30 NFW (Rec: 08/03/19 17:01 [facility] [id number]) Posture Evaluation Position Standing Head/C-Spine Posture Forward Head T-Spine Posture Increased Kyphosis L-Spine Posture Decreased Lordosis Shoulder Posture (L) Rounded,(R) Rounded Scapula Posture (L) Protracted,(R) Protracted Pelvis Posture (R) Iliac Crest Superior Weight Distribution Weight Shifted Right Hip Posture (L) Externally Rotated,(L) Abducted Knee Posture (R) Genu Recurvatum Skin Assessment Edema Assessment Bilateral Foot Edema Type Pitting Edema Degree 3+ Edema Appearance Firm,Puffy,Taut Comments Significant edema lower leg into ankles and feet, left much moreso than right PT-OP-K Range of Motion Start: 08/03/19 15:44 Freq: Status: Active Protocol: Document 08/03/19 14:30 NFW (Rec: 08/03/19 17:01 [facility] [id number]) Hip Goniometric Range of Motion Hip Left Active Hip ROM WFL No Testing Position Supine Flexion w/Knee Flexed 90 Straight Leg Raise 30 Abduction 20 External Rotation 20 Right Active Hip ROM WFL No Testing Position Supine Flexion w/Knee Flexed 90 Straight Leg Raise 60 Abduction 30 External Rotation 30 Hip ROM Limitations Hip ROM Limitations Soft Tissue Tightness,Muscle Weakness,Muscle Tone,Swelling Knee Goniometric Range of Motion Knee Left Knee ROM WFL Yes Right Knee ROM WFL Yes PT-OP-M Strength Start: 08/03/19 15:44 Freq: Status: Active Protocol: Document 08/03/19 14:30 NFW (Rec: 08/03/19 17:01 [facility] [id number]) Hip Strength Hip Manual Muscle Testing Left Flexion (L2) 3+ Fair+ Comments Other muscle groups not tested due to difficulty in getting in proper position. Right Flexion (L2) 4 Good Comments Other muscle groups not tested due to difficulty in getting in proper position. Knee Strength Knee Manual Muscle Testing Left Flexion (S2) 3+ Fair+ Extension (L3) 3+ Fair+ Right Flexion (S2) 4 Good Extension (L3) 4 Good Ankle/Foot Strength Ankle and Foot Manual Muscle Testing Left Dorsiflexion (L4) 4 Good Right Dorsiflexion (L4) 4 Good Toe Strength Toe Manual Muscle Testing Left Great Toe Extension 3 Fair Right Great Toe Extension 4 Good PT-OP-Q Treatments Start: 08/03/19 15:44 Freq: Status: Active Protocol: Document 09/07/19 12:54 LRN (Rec: 09/07/19 13:40 LRN [id number]) Therapeutic Exercises Sitting Exercises Sit to Stand Sitting Exercise Name Sit to Stand Reps/Minutes 10x Knee extension Sitting Exercise Name Knee ext Side bilateral Resistance 2# Reps/Minutes 15x each Standing Exercises Toe raises Standing Exercise Name Toe raises Side bilateral Equipment Used Rail Reps/Minutes 15 x 2 heel raises Standing Exercise Name heel raises Side bilateral Resistance AROM Equipment Used rail Reps/Minutes 2x20 3 Standing Exercise Name Hip Extension Side bilateral Equipment Used rail Reps/Minutes 20 x 2 Comments Alternating sides 2 Standing Exercise Name Hip Abduction Side bilateral Equipment Used rail Reps/Minutes 20 x2 Comments Alternating sides due to hip pain 1 Standing Exercise Name March Side bilateral Equipment Used rail Reps/Minutes 20 x 2 Neuro Re-Education Treatment Balance Activities hurdles Details forward, side stepping Surface level Equipment Handrail. Reps/Duration 10' x 4 laps Comments cued for high knee lift, foot clearance to clear melina. focus increase stride length and LE strengthening endurance . PT-OP-T Assessment and Plan Start: 08/03/19 15:44 Freq: Status: Active Protocol: Document 09/07/19 12:54 LRN (Rec: 09/07/19 13:40 LRN [id number]) Physical Therapy Assessment Assessment Summary Assessment Pt gets easily distracted, but follows directions well. Pt apparently didn't do her HEP while on vacation; therefore she fatigues more quickly today. Pt having difficulty stepping over hurdles due to LLE weakness; therefore balancing is difficult. Physical Therapy Plan Frequency and Duration Frequency of Treatment 2x/Week Duration of Treatment 3 months Plan of Care Start Date 08/03/19 Plan of Care End Date 10/26/19 Next Visit Focus/Plan Next Note Type Treatment Note Next Visit Plan Practice getting in/out of car . Assess added melina balance activity last tx to increase stride length and increased reps during standing ex. Review bed mobility training.
--- NOTE | 2019-09-07 13:52 | PT.OTN ---
Current Diagnoses Unspecified abnormalities of gait and mobility (09/07/19) Physical Therapy Treatment Note PT-OP-A Visit Information Start: 08/03/19 15:44 Freq: Status: Active Protocol: Document 09/07/19 12:54 LRN (Rec: 09/07/19 13:40 LRN [id number]) Out-Patient Physical Therapy Visit Information Visit Information Visit Type Treatment Note Visit Start Time 12:54 Visit Stop Time 13:38 Total Visit Minutes 44 Visit Number 04/17 Number of HOUSE DESIGNER Visits 0 Evaluation Information Evaluation Date 08/03/19 Precautions Precautions High fall risk. PT-OP-B Current Condition Start: 08/03/19 15:44 Freq: Status: Active Protocol: Document 08/03/19 14:30 NFW (Rec: 08/03/19 17:01 NFW [id number]) Current Condition History of Current Condition Current Complaints Overall decrease of functional abilities. 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 Pt was hospitalized in rehab for ~ 3 mos one year ago secondary to raheel the flu. Over the past couple of years she has noticed progressive weakness in her LEs and limitations in performing her normal daily activities. Treatment Goals Patient/Caregiver Goals Greater ease getting in and out of car. Be able to travel by plane with . Be able to cook meals again. Prior Functional Status Baseline Function- ADL's Modified Independent Baseline Function- Mobility Modified Independent Current Functional Impairments (Reported) Functional Limitations- ADL's Requires assist with shoes and socks. Functional Limitations- Mobility/Gait Ambulates with FWW, depends heavily onto UEs. Functional Limitations- Work/School Has not been able to cook, sweep the floor, rake the leaves for quite some time. Functional Limitations- Recreation/ Going out to the mall or a Hobbies carnival with her grandkids. Functional Limitations- Other Difficulty getting in and out of the car. PT-OP-C Subjective Start: 08/03/19 15:44 Freq: Status: Active Protocol: Document 09/07/19 12:54 LRN (Rec: 09/07/19 13:40 LRN [id number]) OP-PT Subjective Patient Comments Patient Comments Brain fog since returning from [facility]. Patient Questionnaires Lower Extremity Functional Scale LEFS Score 13 LEFS Impairment 80 to 99% Impaired (Score 1-16 ) PT-OP-D Balance Start: 08/03/19 15:44 Freq: Status: Active Protocol: Document 08/03/19 14:30 NFW (Rec: 08/03/19 17:01 NF [id number]) Balance Tests Li Balance Test Li Balance Test Score 28/56 Li Impairment Rating 40 to 59% Impaired (Score 23- 33) Romberg Romberg unable Single Limb Standing Single Limb- Right unable Single Limb- Left unable Tinetti Balance Assessment Sitting Balance Sitting Balance Leans or slides in chair Arising from Chair Ability to Arise Able, uses arms to help Attempts to Arise Arises on 1st attempt Standing Balance Immediate Standing Balance Steady with support Standing Balance Steady, wide stance Nudged Response Steady Standing with Eyes Closed Unsteady Turning Step Pattern Turning 360 Degrees Continuous steps Stability Turning 360 Degrees Steady Sitting Down Sitting Down Uses arms or unsteady Gait and Step Initiation of Gait Hesitancy, mult. attempts Right Foot Step Length Does pass stance foot Right Foot Step Height Completely clears floor Left Foot Step Length Does pass stance foot Left Foot Step Height Does not clear floor Step Description Step Symmetry Step length not equal Step Continuity Steps appear continuous Gait Description Path Description Mild/moderate deviation Trunk Description No sway but posturing Walking Stance Heels apart Scoring and Interpretation Tinetti Composite Score (points) 16 Interpretation of Scores High risk for falls(< 19) Tinetti Impairment Rating from Composite 40 to <60% Impaired (Score 12- Score 16) PT-OP-E Functional Tests Start: 08/03/19 15:44 Freq: Status: Active Protocol: Document 08/03/19 14:30 NFW (Rec: 08/03/19 17:01 [facility] [id number]) Functional Tests Timed Up and Go (TUG) Score 42 seconds Comments performed with no assistive device TUG Impairment Rating 100% Impaired (Score 20) Tinetti Balance and Gait Assessment Gait Score Impairment Rating 40 to <60% Impaired (Score 5-7 ) PT-OP-G Mobility & Gait Start: 08/03/19 15:44 Freq: Status: Active Protocol: Document 08/03/19 14:30 NFW (Rec: 08/03/19 17:01 [facility] [id number]) OP Mobility Evaluation Bed Mobility Rolling Able to roll side to side with cuing. Supine to and from Sit Independent. Sit to supine, extreme difficulty doing this activity the recommended way (sitting down then rolling to side to back). At home she faces the bed, puts one knee up then reaches forward with hand and grabs mattress/sheets to pull herself forward. She does say she flops down into bed. Transfers Sit to Stand Independent with use of BUEs. Bed to Chair Transfers Independendt with use of BUEs. Car Transfers Did not test, but patient and report that this is a very difficult activity for them to perform. Floor Transfers Did not test, but do not feel patient would be able to lift her weight up off the floor. Functional Movements Lifting and Carrying None Squats No Running Assessment No OP Gait Assessment Gait Gait Assistance Required: Standby Assistance,1 Person Assist Distance (Feet) 50 Assistive Devices Assistive Device Front Wheeled Walker Gait Deviations General Gait Pattern Decreased Stride Length, Decreased Feet Clearance, Flexed Trunk,Wide Based Gait Factors Limiting Gait Function Factors Limiting Gait Function Abnormal Tonal Influences, Decreased Activity Tolerance, Decreased Strength, Incoordination,Limited Range of Motion,Poor Balance,Poor Safety Awareness Comments Gait Comments Gait slow and shuffled especially with left LE. PT-OP-J Posture/Palpation/Skin Start: 08/03/19 15:44 Freq: Status: Active Protocol: Document 08/03/19 14:30 NFW (Rec: 08/03/19 17:01 NF [id number]) Posture Evaluation Position Standing Head/C-Spine Posture Forward Head T-Spine Posture Increased Kyphosis L-Spine Posture Decreased Lordosis Shoulder Posture (L) Rounded,(R) Rounded Scapula Posture (L) Protracted,(R) Protracted Pelvis Posture (R) Iliac Crest Superior Weight Distribution Weight Shifted Right Hip Posture (L) Externally Rotated,(L) Abducted Knee Posture (R) Genu Recurvatum Skin Assessment Edema Assessment Bilateral Foot Edema Type Pitting Edema Degree 3+ Edema Appearance Firm,Puffy,Taut Comments Significant edema lower leg into ankles and feet, left much moreso than right PT-OP-K Range of Motion Start: 08/03/19 15:44 Freq: Status: Active Protocol: Document 08/03/19 14:30 NFW (Rec: 08/03/19 17:01 NFW [id number]) Hip Goniometric Range of Motion Hip Left Active Hip ROM WFL No Testing Position Supine Flexion w/Knee Flexed 90 Straight Leg Raise 30 Abduction 20 External Rotation 20 Right Active Hip ROM WFL No Testing Position Supine Flexion w/Knee Flexed 90 Straight Leg Raise 60 Abduction 30 External Rotation 30 Hip ROM Limitations Hip ROM Limitations Soft Tissue Tightness,Muscle Weakness,Muscle Tone,Swelling Knee Goniometric Range of Motion Knee Left Knee ROM WFL Yes Right Knee ROM WFL Yes PT-OP-M Strength Start: 08/03/19 15:44 Freq: Status: Active Protocol: Document 08/03/19 14:30 NFW (Rec: 08/03/19 17:01 NFW [id number]) Hip Strength Hip Manual Muscle Testing Left Flexion (L2) 3+ Fair+ Comments Other muscle groups not tested due to difficulty in getting in proper position. Right Flexion (L2) 4 Good Comments Other muscle groups not tested due to difficulty in getting in proper position. Knee Strength Knee Manual Muscle Testing Left Flexion (S2) 3+ Fair+ Extension (L3) 3+ Fair+ Right Flexion (S2) 4 Good Extension (L3) 4 Good Ankle/Foot Strength Ankle and Foot Manual Muscle Testing Left Dorsiflexion (L4) 4 Good Right Dorsiflexion (L4) 4 Good Toe Strength Toe Manual Muscle Testing Left Great Toe Extension 3 Fair Right Great Toe Extension 4 Good PT-OP-Q Treatments Start: 08/03/19 15:44 Freq: Status: Active Protocol: Document 09/07/19 12:54 LRN (Rec: 09/07/19 13:40 LRN [id number]) Therapeutic Exercises Sitting Exercises Sit to Stand Sitting Exercise Name Sit to Stand Reps/Minutes 10x Knee extension Sitting Exercise Name Knee ext Side bilateral Resistance 2# Reps/Minutes 15x each Standing Exercises Toe raises Standing Exercise Name Toe raises Side bilateral Equipment Used Rail Reps/Minutes 15 x 2 heel raises Standing Exercise Name heel raises Side bilateral Resistance AROM Equipment Used rail Reps/Minutes 2x20 3 Standing Exercise Name Hip Extension Side bilateral Equipment Used rail Reps/Minutes 20 x 2 Comments Alternating sides 2 Standing Exercise Name Hip Abduction Side bilateral Equipment Used rail Reps/Minutes 20 x2 Comments Alternating sides due to hip pain 1 Standing Exercise Name March Side bilateral Equipment Used rail Reps/Minutes 20 x 2 Neuro Re-Education Treatment Balance Activities hurdles Details forward, side stepping Surface level Equipment Handrail. Reps/Duration 10' x 4 laps Comments cued for high knee lift, foot clearance to clear melina. focus increase stride length and LE strengthening endurance . PT-OP-T Assessment and Plan Start: 08/03/19 15:44 Freq: Status: Active Protocol: Document 09/07/19 12:54 LRN (Rec: 09/07/19 13:40 LRN [id number]) Physical Therapy Assessment Assessment Summary Assessment Pt gets easily distracted, but follows directions well. Pt apparently didn't do her HEP while on vacation; therefore she fatigues more quickly today. Pt having difficulty stepping over hurdles due to LLE weakness; therefore balancing is difficult. Physical Therapy Plan Frequency and Duration Frequency of Treatment 2x/Week Duration of Treatment 3 months Plan of Care Start Date 08/03/19 Plan of Care End Date 10/26/19 Next Visit Focus/Plan Next Note Type Treatment Note Next Visit Plan Practice getting in/out of car . Assess added melina balance activity last tx to increase stride length and increased reps during standing ex. Review bed mobility training.
--- NOTE | 2019-09-09 13:33 | PT.OTN ---
Current Diagnoses Unspecified abnormalities of gait and mobility (09/09/19) Physical Therapy Treatment Note PT-OP-A Visit Information Start: 08/03/19 15:44 Freq: Status: Active Protocol: Document 09/09/19 12:49 LRN (Rec: 09/09/19 13:30 LRN [id number]) Out-Patient Physical Therapy Visit Information Visit Information Visit Type Treatment Note Visit Start Time 13:00 Visit Stop Time 13:30 Total Visit Minutes 30 Visit Number 8 Number of ORE GRADER Visits 0 Evaluation Information Evaluation Date 08/03/19 Precautions Precautions High fall risk. PT-OP-B Current Condition Start: 08/03/19 15:44 Freq: Status: Active Protocol: Document 08/03/19 14:30 NFW (Rec: 08/03/19 17:01 NFW [id number]) Current Condition History of Current Condition Current Complaints Overall decrease of functional abilities. 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 Pt was hospitalized in rehab for ~ 3 mos one year ago secondary to raheel the flu. Over the past couple of years she has noticed progressive weakness in her LEs and limitations in performing her normal daily activities. Treatment Goals Patient/Caregiver Goals Greater ease getting in and out of car. Be able to travel by plane with . Be able to cook meals again. Prior Functional Status Baseline Function- ADL's Modified Independent Baseline Function- Mobility Modified Independent Current Functional Impairments (Reported) Functional Limitations- ADL's Requires assist with shoes and socks. Functional Limitations- Mobility/Gait Ambulates with FWW, depends heavily onto UEs. Functional Limitations- Work/School Has not been able to cook, sweep the floor, rake the leaves for quite some time. Functional Limitations- Recreation/ Going out to the mall or a Hobbies carnival with her grandkids. Functional Limitations- Other Difficulty getting in and out of the car. PT-OP-C Subjective Start: 08/03/19 15:44 Freq: Status: Active Protocol: Document 09/09/19 12:49 LRN (Rec: 09/09/19 13:30 LRN [id number]) OP-PT Subjective Patient Comments Patient Comments Pt arrives 4' late and spouse reports she has to use the bathroom. Light headed today. Having problems with getting dizzy. Wants to work on getting in/out of a car when the weather is better. PT-OP-D Balance Start: 08/03/19 15:44 Freq: Status: Active Protocol: Document 08/03/19 14:30 NFW (Rec: 08/03/19 17:01 NFW [id number]) Balance Tests Li Balance Test Li Balance Test Score 28/56 Li Impairment Rating 40 to 59% Impaired (Score 23- 33) Romberg Romberg unable Single Limb Standing Single Limb- Right unable Single Limb- Left unable Tinetti Balance Assessment Sitting Balance Sitting Balance Leans or slides in chair Arising from Chair Ability to Arise Able, uses arms to help Attempts to Arise Arises on 1st attempt Standing Balance Immediate Standing Balance Steady with support Standing Balance Steady, wide stance Nudged Response Steady Standing with Eyes Closed Unsteady Turning Step Pattern Turning 360 Degrees Continuous steps Stability Turning 360 Degrees Steady Sitting Down Sitting Down Uses arms or unsteady Gait and Step Initiation of Gait Hesitancy, mult. attempts Right Foot Step Length Does pass stance foot Right Foot Step Height Completely clears floor Left Foot Step Length Does pass stance foot Left Foot Step Height Does not clear floor Step Description Step Symmetry Step length not equal Step Continuity Steps appear continuous Gait Description Path Description Mild/moderate deviation Trunk Description No sway but posturing Walking Stance Heels apart Scoring and Interpretation Tinetti Composite Score (points) 16 Interpretation of Scores High risk for falls(< 19) Tinetti Impairment Rating from Composite 40 to <60% Impaired (Score 12- Score 16) PT-OP-E Functional Tests Start: 08/03/19 15:44 Freq: Status: Active Protocol: Document 08/03/19 14:30 NFW (Rec: 08/03/19 17:01 [facility] [id number]) Functional Tests Timed Up and Go (TUG) Score 42 seconds Comments performed with no assistive device TUG Impairment Rating 100% Impaired (Score 20) Tinetti Balance and Gait Assessment Gait Score Impairment Rating 40 to <60% Impaired (Score 5-7 ) PT-OP-G Mobility & Gait Start: 08/03/19 15:44 Freq: Status: Active Protocol: Document 08/03/19 14:30 NFW (Rec: 08/03/19 17:01 NF [id number]) OP Mobility Evaluation Bed Mobility Rolling Able to roll side to side with cuing. Supine to and from Sit Independent. Sit to supine, extreme difficulty doing this activity the recommended way (sitting down then rolling to side to back). At home she faces the bed, puts one knee up then reaches forward with hand and grabs mattress/sheets to pull herself forward. She does say she flops down into bed. Transfers Sit to Stand Independent with use of BUEs. Bed to Chair Transfers Independendt with use of BUEs. Car Transfers Did not test, but patient and report that this is a very difficult activity for them to perform. Floor Transfers Did not test, but do not feel patient would be able to lift her weight up off the floor. Functional Movements Lifting and Carrying None Squats No Running Assessment No OP Gait Assessment Gait Gait Assistance Required: Standby Assistance,1 Person Assist Distance (Feet) 50 Assistive Devices Assistive Device Front Wheeled Walker Gait Deviations General Gait Pattern Decreased Stride Length, Decreased Feet Clearance, Flexed Trunk,Wide Based Gait Factors Limiting Gait Function Factors Limiting Gait Function Abnormal Tonal Influences, Decreased Activity Tolerance, Decreased Strength, Incoordination,Limited Range of Motion,Poor Balance,Poor Safety Awareness Comments Gait Comments Gait slow and shuffled especially with left LE. PT-OP-J Posture/Palpation/Skin Start: 08/03/19 15:44 Freq: Status: Active Protocol: Document 08/03/19 14:30 NFW (Rec: 08/03/19 17:01 NFW [id number]) Posture Evaluation Position Standing Head/C-Spine Posture Forward Head T-Spine Posture Increased Kyphosis L-Spine Posture Decreased Lordosis Shoulder Posture (L) Rounded,(R) Rounded Scapula Posture (L) Protracted,(R) Protracted Pelvis Posture (R) Iliac Crest Superior Weight Distribution Weight Shifted Right Hip Posture (L) Externally Rotated,(L) Abducted Knee Posture (R) Genu Recurvatum Skin Assessment Edema Assessment Bilateral Foot Edema Type Pitting Edema Degree 3+ Edema Appearance Firm,Puffy,Taut Comments Significant edema lower leg into ankles and feet, left much moreso than right PT-OP-K Range of Motion Start: 08/03/19 15:44 Freq: Status: Active Protocol: Document 08/03/19 14:30 NFW (Rec: 08/03/19 17:01 W [id number]) Hip Goniometric Range of Motion Hip Left Active Hip ROM WFL No Testing Position Supine Flexion w/Knee Flexed 90 Straight Leg Raise 30 Abduction 20 External Rotation 20 Right Active Hip ROM WFL No Testing Position Supine Flexion w/Knee Flexed 90 Straight Leg Raise 60 Abduction 30 External Rotation 30 Hip ROM Limitations Hip ROM Limitations Soft Tissue Tightness,Muscle Weakness,Muscle Tone,Swelling Knee Goniometric Range of Motion Knee Left Knee ROM WFL Yes Right Knee ROM WFL Yes PT-OP-M Strength Start: 08/03/19 15:44 Freq: Status: Active Protocol: Document 08/03/19 14:30 NFW (Rec: 08/03/19 17:01 NFW [id number]) Hip Strength Hip Manual Muscle Testing Left Flexion (L2) 3+ Fair+ Comments Other muscle groups not tested due to difficulty in getting in proper position. Right Flexion (L2) 4 Good Comments Other muscle groups not tested due to difficulty in getting in proper position. Knee Strength Knee Manual Muscle Testing Left Flexion (S2) 3+ Fair+ Extension (L3) 3+ Fair+ Right Flexion (S2) 4 Good Extension (L3) 4 Good Ankle/Foot Strength Ankle and Foot Manual Muscle Testing Left Dorsiflexion (L4) 4 Good Right Dorsiflexion (L4) 4 Good Toe Strength Toe Manual Muscle Testing Left Great Toe Extension 3 Fair Right Great Toe Extension 4 Good PT-OP-Q Treatments Start: 08/03/19 15:44 Freq: Status: Active Protocol: Document 09/09/19 12:49 LRN (Rec: 09/09/19 13:30 LRN [id number]) Therapeutic Exercises Standing Exercises Side stepping Standing Exercise Name Side stepping Side bilateral Reps/Minutes 6' Toe raises Standing Exercise Name Toe raises Side bilateral Equipment Used Rail Reps/Minutes 20 x 1 heel raises Standing Exercise Name heel raises Side bilateral Resistance AROM Equipment Used rail Reps/Minutes 1x20 3 Standing Exercise Name Hip Extension Side bilateral Equipment Used rail Reps/Minutes 20 x 2 Comments Alternating sides 2 Standing Exercise Name Hip Abduction Side bilateral Equipment Used rail Reps/Minutes 20 x2 Comments Alternating sides due to hip pain 1 Standing Exercise Name March Side bilateral Equipment Used rail Reps/Minutes 20 x 2 Gait Training Gait Activity 1 Description Walking Device Used FWW Level of Assistance SBA Surface Level Distance/Duration 100 ft Treatment Focus Lifting feet, proper positioning in walker, not leaning on walker. Manual Therapy Treatment Manual Techniques BP/HR check Type BP/HR Body Location R Arm Body Position Sitting Comments After walking into exercise room, with short rest: BP 144 /98, HR irregular at 69-84. PT-OP-T Assessment and Plan Start: 08/03/19 15:44 Freq: Status: Active Protocol: Document 09/09/19 12:49 LRN (Rec: 09/09/19 13:30 LRN [id number]) Physical Therapy Assessment Goals Four Impairment Low functional level Short Term Goal (STG) Perform light cooking activities at home. STG Duration 09/14/19 College Or [employer] Business Manager Goal (LTG) Greater ease getting in and out of car. LTG Duration 10/26/19 Two Impairment Slow walking pace Short Term Goal (STG) Improve Timed Up and Go Test without the use of assistive devices to 30 seconds. STG Duration 09/14/19 [employer] Business Manager Goal (LTG) Improve Timed Up and Go Test without use of assistive devices to 15 seconds. LTG Duration 10/26/19 One Impairment Low confidence in functional abilities Short Term Goal (STG) Improve ABC scale score from 60-80% impaired to 40-60% STG Duration 09/14/19 Senior Care Goal (LTG) Improve ABC scale score to 20- 40% impaired LTG Duration 10/26/19 Assessment Summary Assessment Start of therapy: BP 144/98, HR irregular at 69-84. Pt did not feel well today; therefore held balance and melina exercise. Pt needed much redirection to focus on therapy, when focused, pt concentrated on task at hand. Pt demonstrated very poor gait today with shuffling of feet. Weather was not appropriate for car transfer training today. Physical Therapy Plan Frequency and Duration Frequency of Treatment 2x/Week Duration of Treatment 3 months Plan of Care Start Date 08/03/19 Plan of Care End Date 10/26/19 Next Visit Focus/Plan Next Note Type Treatment Note Next Visit Plan Assess TUG & ABC scale. If weather appropriate for outdoor training, practice getting in/out of car. Assess added melina balance activity last tx to increase stride length and increased reps during standing ex. Review bed mobility training.
--- NOTE | 2019-09-14 15:38 | PT.OTN ---
Current Diagnoses Unspecified abnormalities of gait and mobility (09/14/19) Physical Therapy Treatment Note PT-OP-A Visit Information Start: 08/03/19 15:44 Freq: Status: Active Protocol: Document 09/14/19 14:15 LRN (Rec: 09/14/19 15:18 LRN [id number]) Out-Patient Physical Therapy Visit Information Visit Information Visit Type Treatment Note Visit Start Time 14:16 Visit Stop Time 15:00 Total Visit Minutes 44 Visit Number 06/18 Number of KIER OPERATOR Visits 0 Evaluation Information Evaluation Date 08/03/19 Precautions Precautions High fall risk. PT-OP-B Current Condition Start: 08/03/19 15:44 Freq: Status: Active Protocol: Document 08/03/19 14:30 NFW (Rec: 08/03/19 17:01 NFW [id number]) Current Condition History of Current Condition Current Complaints Overall decrease of functional abilities. 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 Pt was hospitalized in rehab for ~ 3 mos one year ago secondary to raheel the flu. Over the past couple of years she has noticed progressive weakness in her LEs and limitations in performing her normal daily activities. Treatment Goals Patient/Caregiver Goals Greater ease getting in and out of car. Be able to travel by plane with . Be able to cook meals again. Prior Functional Status Baseline Function- ADL's Modified Independent Baseline Function- Mobility Modified Independent Current Functional Impairments (Reported) Functional Limitations- ADL's Requires assist with shoes and socks. Functional Limitations- Mobility/Gait Ambulates with FWW, depends heavily onto UEs. Functional Limitations- Work/School Has not been able to cook, sweep the floor, rake the leaves for quite some time. Functional Limitations- Recreation/ Going out to the mall or a Hobbies carnival with her grandkids. Functional Limitations- Other Difficulty getting in and out of the car. PT-OP-C Subjective Start: 08/03/19 15:44 Freq: Status: Active Protocol: Document 09/14/19 14:15 LRN (Rec: 09/14/19 15:18 LRN [id number]) OP-PT Subjective Patient Comments Patient Comments Pt states she has been trying to walk within her walker and heel>toe. Does a little cooking, spouse does most. Patient Questionnaires ABC- Activity Specific Balance Confidence Scale ABC Score 25 ABC Functional Impairment 60 to <80% Impaired (Score 21- 40) PT-OP-D Balance Start: 08/03/19 15:44 Freq: Status: Active Protocol: Document 08/03/19 14:30 NFW (Rec: 08/03/19 17:01 NFW [id number]) Balance Tests Li Balance Test Li Balance Test Score 28/56 Li Impairment Rating 40 to 59% Impaired (Score 23- 33) Romberg Romberg unable Single Limb Standing Single Limb- Right unable Single Limb- Left unable Tinetti Balance Assessment Sitting Balance Sitting Balance Leans or slides in chair Arising from Chair Ability to Arise Able, uses arms to help Attempts to Arise Arises on 1st attempt Standing Balance Immediate Standing Balance Steady with support Standing Balance Steady, wide stance Nudged Response Steady Standing with Eyes Closed Unsteady Turning Step Pattern Turning 360 Degrees Continuous steps Stability Turning 360 Degrees Steady Sitting Down Sitting Down Uses arms or unsteady Gait and Step Initiation of Gait Hesitancy, mult. attempts Right Foot Step Length Does pass stance foot Right Foot Step Height Completely clears floor Left Foot Step Length Does pass stance foot Left Foot Step Height Does not clear floor Step Description Step Symmetry Step length not equal Step Continuity Steps appear continuous Gait Description Path Description Mild/moderate deviation Trunk Description No sway but posturing Walking Stance Heels apart Scoring and Interpretation Tinetti Composite Score (points) 16 Interpretation of Scores High risk for falls(< 19) Tinetti Impairment Rating from Composite 40 to <60% Impaired (Score 12- Score 16) PT-OP-E Functional Tests Start: 08/03/19 15:44 Freq: Status: Active Protocol: Document 08/03/19 14:30 NFW (Rec: 08/03/19 17:01 NF [id number]) Functional Tests Timed Up and Go (TUG) Score 42 seconds Comments performed with no assistive device TUG Impairment Rating 100% Impaired (Score 20) Tinetti Balance and Gait Assessment Gait Score Impairment Rating 40 to <60% Impaired (Score 5-7 ) PT-OP-G Mobility & Gait Start: 08/03/19 15:44 Freq: Status: Active Protocol: Document 08/03/19 14:30 NFW (Rec: 08/03/19 17:01 NFW [id number]) OP Mobility Evaluation Bed Mobility Rolling Able to roll side to side with cuing. Supine to and from Sit Independent. Sit to supine, extreme difficulty doing this activity the recommended way (sitting down then rolling to side to back). At home she faces the bed, puts one knee up then reaches forward with hand and grabs mattress/sheets to pull herself forward. She does say she flops down into bed. Transfers Sit to Stand Independent with use of BUEs. Bed to Chair Transfers Independendt with use of BUEs. Car Transfers Did not test, but patient and report that this is a very difficult activity for them to perform. Floor Transfers Did not test, but do not feel patient would be able to lift her weight up off the floor. Functional Movements Lifting and Carrying None Squats No Running Assessment No OP Gait Assessment Gait Gait Assistance Required: Standby Assistance,1 Person Assist Distance (Feet) 50 Assistive Devices Assistive Device Front Wheeled Walker Gait Deviations General Gait Pattern Decreased Stride Length, Decreased Feet Clearance, Flexed Trunk,Wide Based Gait Factors Limiting Gait Function Factors Limiting Gait Function Abnormal Tonal Influences, Decreased Activity Tolerance, Decreased Strength, Incoordination,Limited Range of Motion,Poor Balance,Poor Safety Awareness Comments Gait Comments Gait slow and shuffled especially with left LE. PT-OP-J Posture/Palpation/Skin Start: 08/03/19 15:44 Freq: Status: Active Protocol: Document 08/03/19 14:30 NFW (Rec: 08/03/19 17:01 [facility] [id number]) Posture Evaluation Position Standing Head/C-Spine Posture Forward Head T-Spine Posture Increased Kyphosis L-Spine Posture Decreased Lordosis Shoulder Posture (L) Rounded,(R) Rounded Scapula Posture (L) Protracted,(R) Protracted Pelvis Posture (R) Iliac Crest Superior Weight Distribution Weight Shifted Right Hip Posture (L) Externally Rotated,(L) Abducted Knee Posture (R) Genu Recurvatum Skin Assessment Edema Assessment Bilateral Foot Edema Type Pitting Edema Degree 3+ Edema Appearance Firm,Puffy,Taut Comments Significant edema lower leg into ankles and feet, left much moreso than right PT-OP-K Range of Motion Start: 08/03/19 15:44 Freq: Status: Active Protocol: Document 08/03/19 14:30 NFW (Rec: 08/03/19 17:01 [facility] [id number]) Hip Goniometric Range of Motion Hip Left Active Hip ROM WFL No Testing Position Supine Flexion w/Knee Flexed 90 Straight Leg Raise 30 Abduction 20 External Rotation 20 Right Active Hip ROM WFL No Testing Position Supine Flexion w/Knee Flexed 90 Straight Leg Raise 60 Abduction 30 External Rotation 30 Hip ROM Limitations Hip ROM Limitations Soft Tissue Tightness,Muscle Weakness,Muscle Tone,Swelling Knee Goniometric Range of Motion Knee Left Knee ROM WFL Yes Right Knee ROM WFL Yes PT-OP-M Strength Start: 08/03/19 15:44 Freq: Status: Active Protocol: Document 08/03/19 14:30 NFW (Rec: 08/03/19 17:01 NFW [id number]) Hip Strength Hip Manual Muscle Testing Left Flexion (L2) 3+ Fair+ Comments Other muscle groups not tested due to difficulty in getting in proper position. Right Flexion (L2) 4 Good Comments Other muscle groups not tested due to difficulty in getting in proper position. Knee Strength Knee Manual Muscle Testing Left Flexion (S2) 3+ Fair+ Extension (L3) 3+ Fair+ Right Flexion (S2) 4 Good Extension (L3) 4 Good Ankle/Foot Strength Ankle and Foot Manual Muscle Testing Left Dorsiflexion (L4) 4 Good Right Dorsiflexion (L4) 4 Good Toe Strength Toe Manual Muscle Testing Left Great Toe Extension 3 Fair Right Great Toe Extension 4 Good PT-OP-Q Treatments Start: 08/03/19 15:44 Freq: Status: Active Protocol: Document 09/14/19 14:15 LRN (Rec: 09/14/19 15:18 LRN [id number]) Therapeutic Exercises Sitting Exercises Ankle DF Sitting Exercise Name Ankle DF Side bilateral Reps/Minutes 30x Ankle IV Sitting Exercise Name Ankle IV Side bilateral Equipment Used Lev 2 T-Band Reps/Minutes 30x each Ankle EV Sitting Exercise Name Ankle EV Side bilateral Equipment Used Lev 2 T-Band Reps/Minutes 30x each Sit to Stand Sitting Exercise Name Sit to Stand Reps/Minutes 10x Standing Exercises Toe raises Standing Exercise Name Toe raises Side bilateral Equipment Used Rail Reps/Minutes 1x30 Comments R toes raises higher than L. heel raises Standing Exercise Name heel raises Side bilateral Resistance AROM Equipment Used rail Reps/Minutes 1x30 3 Standing Exercise Name Hip Extension Side bilateral Equipment Used rail Reps/Minutes 10 x 3 2 Standing Exercise Name Hip Abduction Side bilateral Equipment Used rail Reps/Minutes 10 x4 Comments Alternating sides due to hip pain Gait Training Gait Activity 1 Description Walking Device Used FWW Level of Assistance SBA Surface Level Distance/Duration 15' Treatment Focus Lifting feet, proper positioning in walker, not leaning on walker. PT-OP-T Assessment and Plan Start: 08/03/19 15:44 Freq: Status: Active Protocol: Document 09/14/19 14:15 LRN (Rec: 09/14/19 15:18 LRN [id number]) Physical Therapy Assessment Goals Four Impairment Low functional level Short Term Goal (STG) Perform light cooking activities at home. STG Duration 09/14/19 (09/14/19: Does a little meal prep) Semiautomatic Taper Operator Goal (LTG) Greater ease getting in and out of car. LTG Duration 10/26/19 Three Impairment Poor Balance Usp Goal (LTG) Improve Li Balance Score to 20-39% impaired. LTG Duration 10/26/19 Two Impairment Slow walking pace Short Term Goal (STG) Improve Timed Up and Go Test without the use of assistive devices to 30 seconds. STG Duration 09/14/19 (09/14/19: TUG w/ walker 39 secs) Usp Goal (LTG) Improve Timed Up and Go Test without use of assistive devices to 15 seconds. LTG Duration 10/26/19 One Impairment Low confidence in functional abilities Short Term Goal (STG) Improve ABC scale score from 60-80% impaired to 40-60% STG Duration 09/14/19 (09/14/19: Goal not met) Usp Goal (LTG) Improve ABC scale score to 20- 40% impaired LTG Duration 10/26/19 Assessment Summary Assessment TUG is poor at 39 sec's with FWW, improved from 42 secs ( TUG STG not met). ABC score is 25.6% self confident score (improved from 40% confident), but STG not met. Pt had difficulty sit to stand without use of UE's. Poor ability to move ankle with IV. Physical Therapy Plan Frequency and Duration Frequency of Treatment 2x/Week Duration of Treatment 3 months Plan of Care Start Date 08/03/19 Plan of Care End Date 10/26/19 Next Visit Focus/Plan Next Note Type Treatment Note Next Visit Plan Review bed mobility training. Pt needs to improve endurance and balance for greater ability to cook. Improve speed of gait to improve TUG. If weather appropriate for outdoor training, practice getting in/out of car. Assess added melina balance activity last tx to increase stride length and increased reps during standing ex.
--- NOTE | 2019-09-20 14:44 | PT-OP ANOTE ---
Pt attends today complaining of dizziness. Pt chosing to hold PT due to dizziness. Recommended pt go home and check blood pressure and hydrate if low. Pt reports when tipping head back she has more dizziness. Pt may need vestibular assessment referral.
[2019-10-05 12:48] VITALS: BP 124/88
--- NOTE | 2019-10-05 15:54 | PT.OTN ---
Current Diagnoses Unspecified abnormalities of gait and mobility (10/05/19) Physical Therapy Treatment Note PT-OP-A Visit Information Start: 08/03/19 15:44 Freq: Status: Active Protocol: Document 10/05/19 12:48 LRN (Rec: 10/05/19 13:36 LRN [id number]) Out-Patient Physical Therapy Visit Information Visit Information Visit Type Treatment Note Visit Start Time 12:48 Visit Stop Time 15:00 Total Visit Minutes 42 Visit Number 07/18 Number of DECK OFFICER Visits 0 Evaluation Information Evaluation Date 08/03/19 Precautions Precautions High fall risk. PT-OP-B Current Condition Start: 08/03/19 15:44 Freq: Status: Active Protocol: Document 08/03/19 14:30 NFW (Rec: 08/03/19 17:01 NFW [id number]) Current Condition History of Current Condition Current Complaints Overall decrease of functional abilities. 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 Pt was hospitalized in rehab for ~ 3 mos one year ago secondary to raheel the flu. Over the past couple of years she has noticed progressive weakness in her LEs and limitations in performing her normal daily activities. Treatment Goals Patient/Caregiver Goals Greater ease getting in and out of car. Be able to travel by plane with . Be able to cook meals again. Prior Functional Status Baseline Function- ADL's Modified Independent Baseline Function- Mobility Modified Independent Current Functional Impairments (Reported) Functional Limitations- ADL's Requires assist with shoes and socks. Functional Limitations- Mobility/Gait Ambulates with FWW, depends heavily onto UEs. Functional Limitations- Work/School Has not been able to cook, sweep the floor, rake the leaves for quite some time. Functional Limitations- Recreation/ Going out to the mall or a Hobbies carnival with her grandkids. Functional Limitations- Other Difficulty getting in and out of the car. PT-OP-C Subjective Start: 08/03/19 15:44 Freq: Status: Active Protocol: Document 10/05/19 12:48 LRN (Rec: 10/05/19 13:36 LRN [id number]) OP-PT Subjective Patient Comments Patient Comments Has been tired since the middle of Aug from all the traveling. Daughter to be her next week.1 PT-OP-D Balance Start: 08/03/19 15:44 Freq: Status: Active Protocol: Document 08/03/19 14:30 NFW (Rec: 08/03/19 17:01 NF [id number]) Balance Tests Li Balance Test Li Balance Test Score 28/56 Li Impairment Rating 40 to 59% Impaired (Score 23- 33) Romberg Romberg unable Single Limb Standing Single Limb- Right unable Single Limb- Left unable Tinetti Balance Assessment Sitting Balance Sitting Balance Leans or slides in chair Arising from Chair Ability to Arise Able, uses arms to help Attempts to Arise Arises on 1st attempt Standing Balance Immediate Standing Balance Steady with support Standing Balance Steady, wide stance Nudged Response Steady Standing with Eyes Closed Unsteady Turning Step Pattern Turning 360 Degrees Continuous steps Stability Turning 360 Degrees Steady Sitting Down Sitting Down Uses arms or unsteady Gait and Step Initiation of Gait Hesitancy, mult. attempts Right Foot Step Length Does pass stance foot Right Foot Step Height Completely clears floor Left Foot Step Length Does pass stance foot Left Foot Step Height Does not clear floor Step Description Step Symmetry Step length not equal Step Continuity Steps appear continuous Gait Description Path Description Mild/moderate deviation Trunk Description No sway but posturing Walking Stance Heels apart Scoring and Interpretation Tinetti Composite Score (points) 16 Interpretation of Scores High risk for falls(< 19) Tinetti Impairment Rating from Composite 40 to <60% Impaired (Score 12- Score 16) PT-OP-E Functional Tests Start: 08/03/19 15:44 Freq: Status: Active Protocol: Document 08/03/19 14:30 NFW (Rec: 08/03/19 17:01 [facility] [id number]) Functional Tests Timed Up and Go (TUG) Score 42 seconds Comments performed with no assistive device TUG Impairment Rating 100% Impaired (Score 20) Tinetti Balance and Gait Assessment Gait Score Impairment Rating 40 to <60% Impaired (Score 5-7 ) PT-OP-G Mobility & Gait Start: 08/03/19 15:44 Freq: Status: Active Protocol: Document 08/03/19 14:30 NFW (Rec: 08/03/19 17:01 [facility] [id number]) OP Mobility Evaluation Bed Mobility Rolling Able to roll side to side with cuing. Supine to and from Sit Independent. Sit to supine, extreme difficulty doing this activity the recommended way (sitting down then rolling to side to back). At home she faces the bed, puts one knee up then reaches forward with hand and grabs mattress/sheets to pull herself forward. She does say she flops down into bed. Transfers Sit to Stand Independent with use of BUEs. Bed to Chair Transfers Independendt with use of BUEs. Car Transfers Did not test, but patient and report that this is a very difficult activity for them to perform. Floor Transfers Did not test, but do not feel patient would be able to lift her weight up off the floor. Functional Movements Lifting and Carrying None Squats No Running Assessment No OP Gait Assessment Gait Gait Assistance Required: Standby Assistance,1 Person Assist Distance (Feet) 50 Assistive Devices Assistive Device Front Wheeled Walker Gait Deviations General Gait Pattern Decreased Stride Length, Decreased Feet Clearance, Flexed Trunk,Wide Based Gait Factors Limiting Gait Function Factors Limiting Gait Function Abnormal Tonal Influences, Decreased Activity Tolerance, Decreased Strength, Incoordination,Limited Range of Motion,Poor Balance,Poor Safety Awareness Comments Gait Comments Gait slow and shuffled especially with left LE. PT-OP-H Neuro Start: 08/03/19 15:44 Freq: Status: Active Protocol: Document 10/05/19 12:48 LRN (Rec: 10/05/19 15:53 LRN [id number]) Vital Signs Blood Pressure Sitting Blood Pressure (90/60-120/80 mmHg) 124/88 H Blood Pressure Source Manual Cuff Comments Vital Signs Comments Taken after being on Biodex for ~3 minutes, pt complained of light headedness. PT-OP-J Posture/Palpation/Skin Start: 08/03/19 15:44 Freq: Status: Active Protocol: Document 08/03/19 14:30 NFW (Rec: 08/03/19 17:01 NFW [id number]) Posture Evaluation Position Standing Head/C-Spine Posture Forward Head T-Spine Posture Increased Kyphosis L-Spine Posture Decreased Lordosis Shoulder Posture (L) Rounded,(R) Rounded Scapula Posture (L) Protracted,(R) Protracted Pelvis Posture (R) Iliac Crest Superior Weight Distribution Weight Shifted Right Hip Posture (L) Externally Rotated,(L) Abducted Knee Posture (R) Genu Recurvatum Skin Assessment Edema Assessment Bilateral Foot Edema Type Pitting Edema Degree 3+ Edema Appearance Firm,Puffy,Taut Comments Significant edema lower leg into ankles and feet, left much moreso than right PT-OP-K Range of Motion Start: 08/03/19 15:44 Freq: Status: Active Protocol: Document 08/03/19 14:30 NFW (Rec: 08/03/19 17:01 NFW [id number]) Hip Goniometric Range of Motion Hip Left Active Hip ROM WFL No Testing Position Supine Flexion w/Knee Flexed 90 Straight Leg Raise 30 Abduction 20 External Rotation 20 Right Active Hip ROM WFL No Testing Position Supine Flexion w/Knee Flexed 90 Straight Leg Raise 60 Abduction 30 External Rotation 30 Hip ROM Limitations Hip ROM Limitations Soft Tissue Tightness,Muscle Weakness,Muscle Tone,Swelling Knee Goniometric Range of Motion Knee Left Knee ROM WFL Yes Right Knee ROM WFL Yes PT-OP-M Strength Start: 08/03/19 15:44 Freq: Status: Active Protocol: Document 08/03/19 14:30 NFW (Rec: 08/03/19 17:01 NFW [id number]) Hip Strength Hip Manual Muscle Testing Left Flexion (L2) 3+ Fair+ Comments Other muscle groups not tested due to difficulty in getting in proper position. Right Flexion (L2) 4 Good Comments Other muscle groups not tested due to difficulty in getting in proper position. Knee Strength Knee Manual Muscle Testing Left Flexion (S2) 3+ Fair+ Extension (L3) 3+ Fair+ Right Flexion (S2) 4 Good Extension (L3) 4 Good Ankle/Foot Strength Ankle and Foot Manual Muscle Testing Left Dorsiflexion (L4) 4 Good Right Dorsiflexion (L4) 4 Good Toe Strength Toe Manual Muscle Testing Left Great Toe Extension 3 Fair Right Great Toe Extension 4 Good PT-OP-Q Treatments Start: 08/03/19 15:44 Freq: Status: Active Protocol: Document 10/05/19 12:48 LRN (Rec: 10/05/19 13:36 LRN [id number]) Cardio Equipment Recumbent Elliptical (Biodex) Duration (Minutes) 5 Resistance 1 Seat Position 5 Therapeutic Exercises Sitting Exercises Marching Sitting Exercise Name March lift for getting into car Side bilateral Reps/Minutes 5 x 3 Comments Rest stops between. Moves slowly Standing Exercises Sit to Stand Standing Exercise Name Sit to Stand Reps/Minutes 10 x Comments 2 rests stops needed. Therapeutic Activity Therapeutic Activity Modified transfer in/out of car Name Simulating transfer in/out of car Reps/Minutes 15' Comments Pt moves slowly and requires much queing. Gait Training Gait Activity 1 Description Walking Device Used FWW Level of Assistance SBA Surface Level Distance/Duration 15' Treatment Focus Lifting feet, proper positioning in walker, not leaning on walker. PT-OP-T Assessment and Plan Start: 08/03/19 15:44 Freq: Status: Active Protocol: Document 10/05/19 12:48 LRN (Rec: 10/05/19 13:36 LRN [id number]) Physical Therapy Assessment Goals Four Impairment Low functional level Short Term Goal (STG) Perform light cooking activities at home. STG Duration 09/14/19 (09/14/19: Does a little meal prep) Human Resource Manager Goal (LTG) Greater ease getting in and out of car. LTG Duration 10/26/19 Three Impairment Poor Balance Skilled Nursing Goal (LTG) Improve Li Balance Score to 20-39% impaired. LTG Duration 10/26/19 Two Impairment Slow walking pace Short Term Goal (STG) Improve Timed Up and Go Test without the use of assistive devices to 30 seconds. STG Duration 09/14/19 (09/14/19: TUG w/ walker 39 secs) Human Resource Manager Goal (LTG) Improve Timed Up and Go Test without use of assistive devices to 15 seconds. LTG Duration 10/26/19 One Impairment Low confidence in functional abilities Short Term Goal (STG) Improve ABC scale score from 60-80% impaired to 40-60% STG Duration 09/14/19 (09/14/19: Goal not met) Skilled Nursing Goal (LTG) Improve ABC scale score to 20- 40% impaired LTG Duration 10/26/19 Assessment Summary Assessment Pt focused on car transfers; therefore held bed mobility training to do modified car transfer training. Pt appears easily fatigued and distracts easily. She moves slowly through activities and required more rest stops than usual. Pt BP was 125/86 when complaining of dizziness; vitals (BP) was good. Physical Therapy Plan Frequency and Duration Frequency of Treatment 2x/Week Duration of Treatment 3 months Plan of Care Start Date 08/03/19 Plan of Care End Date 10/26/19 Next Visit Focus/Plan Next Note Type Progress Note Next Visit Plan Assess for PN & POC. Review bed mobility & focus on car training. Review marching in sit and standing. Pt needs to improve endurance and balance for greater ability to cook. Improve speed of gait to improve TUG. If weather appropriate for outdoor training, practice getting in/ out of car. Michel balance activity when pt endurance improves, to increase stride length. Increase reps during standing ex.
--- NOTE | 2019-10-07 16:43 | PT.OTN ---
Current Diagnoses Unspecified abnormalities of gait and mobility (10/07/19) Physical Therapy Treatment Note PT-OP-A Visit Information Start: 08/03/19 15:44 Freq: Status: Active Protocol: Document 10/07/19 12:51 LRN (Rec: 10/07/19 14:02 LRN [id number]) Out-Patient Physical Therapy Visit Information Visit Information Visit Type Progress Note Visit Start Time 12:51 Visit Stop Time 13:35 Total Visit Minutes 44 Visit Number 08/18 Number of PRE PLANNING ADVISOR Visits 0 Evaluation Information Evaluation Date 08/03/19 Precautions Precautions High fall risk. PT-OP-B Current Condition Start: 08/03/19 15:44 Freq: Status: Active Protocol: Document 08/03/19 14:30 NFW (Rec: 08/03/19 17:01 NFW [id number]) Current Condition History of Current Condition Current Complaints Overall decrease of functional abilities. 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 Pt was hospitalized in rehab for ~ 3 mos one year ago secondary to raheel the flu. Over the past couple of years she has noticed progressive weakness in her LEs and limitations in performing her normal daily activities. Treatment Goals Patient/Caregiver Goals Greater ease getting in and out of car. Be able to travel by plane with . Be able to cook meals again. Prior Functional Status Baseline Function- ADL's Modified Independent Baseline Function- Mobility Modified Independent Current Functional Impairments (Reported) Functional Limitations- ADL's Requires assist with shoes and socks. Functional Limitations- Mobility/Gait Ambulates with FWW, depends heavily onto UEs. Functional Limitations- Work/School Has not been able to cook, sweep the floor, rake the leaves for quite some time. Functional Limitations- Recreation/ Going out to the mall or a Hobbies carnival with her grandkids. Functional Limitations- Other Difficulty getting in and out of the car. PT-OP-C Subjective Start: 08/03/19 15:44 Freq: Status: Active Protocol: Document 10/07/19 12:51 LRN (Rec: 10/07/19 14:11 LRN [id number]) Patient Questionnaires ABC- Activity Specific Balance Confidence Scale ABC Score 45 ABC Functional Impairment 40 to <60% Impaired (Score 41- 60) PT-OP-D Balance Start: 08/03/19 15:44 Freq: Status: Active Protocol: Document 10/07/19 12:51 LRN (Rec: 10/07/19 14:11 LRN [id number]) Balance Tests Francois Balance Test Francois Balance Test Score 33 Francois Impairment Rating 40 to 59% Impaired (Score 23- 33) PT-OP-E Functional Tests Start: 08/03/19 15:44 Freq: Status: Active Protocol: Document 10/07/19 12:51 LRN (Rec: 10/07/19 16:32 LRN [id number]) Functional Tests Timed Up and Go (TUG) Score 46 Comments Pt used FWW, and was specific in proper sitting TUG Impairment Rating 100% Impaired (Score 20) PT-OP-G Mobility & Gait Start: 08/03/19 15:44 Freq: Status: Active Protocol: Document 08/03/19 14:30 NFW (Rec: 08/03/19 17:01 NFW [id number]) OP Mobility Evaluation Bed Mobility Rolling Able to roll side to side with cuing. Supine to and from Sit Independent. Sit to supine, extreme difficulty doing this activity the recommended way (sitting down then rolling to side to back). At home she faces the bed, puts one knee up then reaches forward with hand and grabs mattress/sheets to pull herself forward. She does say she flops down into bed. Transfers Sit to Stand Independent with use of BUEs. Bed to Chair Transfers Independendt with use of BUEs. Car Transfers Did not test, but patient and report that this is a very difficult activity for them to perform. Floor Transfers Did not test, but do not feel patient would be able to lift her weight up off the floor. Functional Movements Lifting and Carrying None Squats No Running Assessment No OP Gait Assessment Gait Gait Assistance Required: Standby Assistance,1 Person Assist Distance (Feet) 50 Assistive Devices Assistive Device Front Wheeled Walker Gait Deviations General Gait Pattern Decreased Stride Length, Decreased Feet Clearance, Flexed Trunk,Wide Based Gait Factors Limiting Gait Function Factors Limiting Gait Function Abnormal Tonal Influences, Decreased Activity Tolerance, Decreased Strength, Incoordination,Limited Range of Motion,Poor Balance,Poor Safety Awareness Comments Gait Comments Gait slow and shuffled especially with left LE. PT-OP-H Neuro Start: 08/03/19 15:44 Freq: Status: Active Protocol: Document 10/05/19 12:48 LRN (Rec: 10/05/19 15:53 LRN [id number]) Vital Signs Blood Pressure Sitting Blood Pressure (90/60-120/80 mmHg) 124/88 H Blood Pressure Source Manual Cuff Comments Vital Signs Comments Taken after being on Biodex for ~3 minutes, pt complained of light headedness. PT-OP-J Posture/Palpation/Skin Start: 08/03/19 15:44 Freq: Status: Active Protocol: Document 08/03/19 14:30 NFW (Rec: 08/03/19 17:01 NFW [id number]) Posture Evaluation Position Standing Head/C-Spine Posture Forward Head T-Spine Posture Increased Kyphosis L-Spine Posture Decreased Lordosis Shoulder Posture (L) Rounded,(R) Rounded Scapula Posture (L) Protracted,(R) Protracted Pelvis Posture (R) Iliac Crest Superior Weight Distribution Weight Shifted Right Hip Posture (L) Externally Rotated,(L) Abducted Knee Posture (R) Genu Recurvatum Skin Assessment Edema Assessment Bilateral Foot Edema Type Pitting Edema Degree 3+ Edema Appearance Firm,Puffy,Taut Comments Significant edema lower leg into ankles and feet, left much moreso than right PT-OP-K Range of Motion Start: 08/03/19 15:44 Freq: Status: Active Protocol: Document 08/03/19 14:30 NFW (Rec: 08/03/19 17:01 NFW [id number]) Hip Goniometric Range of Motion Hip Left Active Hip ROM WFL No Testing Position Supine Flexion w/Knee Flexed 90 Straight Leg Raise 30 Abduction 20 External Rotation 20 Right Active Hip ROM WFL No Testing Position Supine Flexion w/Knee Flexed 90 Straight Leg Raise 60 Abduction 30 External Rotation 30 Hip ROM Limitations Hip ROM Limitations Soft Tissue Tightness,Muscle Weakness,Muscle Tone,Swelling Knee Goniometric Range of Motion Knee Left Knee ROM WFL Yes Right Knee ROM WFL Yes PT-OP-M Strength Start: 08/03/19 15:44 Freq: Status: Active Protocol: Document 08/03/19 14:30 NFW (Rec: 08/03/19 17:01 NFW [id number]) Hip Strength Hip Manual Muscle Testing Left Flexion (L2) 3+ Fair+ Comments Other muscle groups not tested due to difficulty in getting in proper position. Right Flexion (L2) 4 Good Comments Other muscle groups not tested due to difficulty in getting in proper position. Knee Strength Knee Manual Muscle Testing Left Flexion (S2) 3+ Fair+ Extension (L3) 3+ Fair+ Right Flexion (S2) 4 Good Extension (L3) 4 Good Ankle/Foot Strength Ankle and Foot Manual Muscle Testing Left Dorsiflexion (L4) 4 Good Right Dorsiflexion (L4) 4 Good Toe Strength Toe Manual Muscle Testing Left Great Toe Extension 3 Fair Right Great Toe Extension 4 Good PT-OP-Q Treatments Start: 08/03/19 15:44 Freq: Status: Active Protocol: Document 10/07/19 12:51 LRN (Rec: 10/07/19 14:02 LRN [id number]) Therapeutic Exercises Standing Exercises Marching w/walking Standing Exercise Name Marching w/walking Reps/Minutes 14' Neuro Re-Education Treatment Balance Activities Dynamic Details 360 deg turn, picking up object off floor, transfers, sit<>stands w/o hands Surface level Equipment 5' SLS Details SLS holding>releasing Surface level Reps/Duration 8' Static standing Details Static standing with EO/EC, feet apart/together, trunk rot , reaching Equipment Level Reps/Duration 15' PT-OP-T Assessment and Plan Start: 08/03/19 15:44 Freq: Status: Active Protocol: Document 10/07/19 12:51 LRN (Rec: 10/07/19 14:02 LRN [id number]) Physical Therapy Assessment Rehab Potential Rehabilitation Potential Fair Evaluation Complexity Number of Personal Factors/Comorbidities 3 or More Number of Body Systems Impaired 4 or More Clinical Presentation at Evaluation Evolving Impairments Impairments Activity Tolerance,Balance, Edema,Functional Activities, Functional Mobility,Gait, Integument,Posture,ROM,Soft Tissue Mobility,Strength, Transfers Goals Four Impairment Low functional level Short Term Goal (STG) Perform light cooking activities at home. STG Duration 09/14/19 (10/07/19: GOAL MET) Care Home Goal (LTG) Greater ease getting in and out of car. LTG Duration 10/26/19 (10/07/19: Progressing with ex) Three Impairment Poor Balance Care Home Goal (LTG) Improve Francois Balance Score to 20-39% impaired. LTG Duration 10/26/19 (10/07/19: FRANCOIS Balance is 33/56 = 59%) Two Impairment Slow walking pace Short Term Goal (STG) Improve Timed Up and Go Test without the use of assistive devices to 30 seconds. STG Duration 09/14/19 (10/07/19: Worse: TUG w/walker 45 secs) Care Home Goal (LTG) Improve Timed Up and Go Test without use of assistive devices to 15 seconds. LTG Duration 10/26/19 One Impairment Low confidence in functional abilities Short Term Goal (STG) Improve ABC scale score from 60-80% impaired to 40-60% STG Duration 09/14/19 (09/14/19: Goal not met) Care Home Goal (LTG) Improve ABC scale score to 20- 40% impaired LTG Duration 10/26/19 Assessment Summary Assessment Pt has made some improvement in her FRANCOIS balance score but % disability is the same. Her TUG score is worse today using a FWW (previously did not use assist device). Functionally, per ABC score she has improved from 40.6% confidence level to 45% comfidence level. Overall the pt has improved and although slowly she remains determined to improve. She would benefit from continued skilled physical therapy to improve strength, endurance, balance and function. The pt feels her rehab is being hindered by her level of incontinence and is hoping to receive medical assessment to improve her continence level, then she feels she might be able to advance easier in her balance/gait/function rehabilitation. The pt is planning a trip at the end of this month and is not sure if she will return to therapy on her return. We will discuss whether to continue therapy prior to her leaving. Physical Therapy Plan Frequency and Duration Frequency of Treatment 2x/Week Plan of Care Start Date 10/07/19 Plan of Care End Date 01/06/20 Next Visit Focus/Plan Next Note Type Treatment Note Next Visit Plan Review bed mobility & focus on car transfer training. Pt needs to improve endurance and balance. Improve speed of gait to improve TUG score. If weather appropriate for outdoor training, practice getting in/out of car. Michel balance activity when pt endurance improves, to increase stride length. Increase reps during standing ex.
--- NOTE | 2019-10-12 11:45 | PT-OP ANOTE ---
Cx'd, day of, due to inclement weather.
--- NOTE | 2019-10-19 16:12 | PT.OTN ---
Current Diagnoses Unspecified abnormalities of gait and mobility (10/19/19) Physical Therapy Treatment Note PT-OP-A Visit Information Start: 08/03/19 15:44 Freq: Status: Active Protocol: Document 10/19/19 12:50 LRN (Rec: 10/19/19 13:38 LRN [id number]) Out-Patient Physical Therapy Visit Information Visit Information Visit Type Treatment Note Visit Start Time 12:50 Visit Stop Time 13:30 Total Visit Minutes 40 Visit Number 09/17 Number of MIDDLE SCHOOL MUSIC TEACHER Visits 0 Evaluation Information Evaluation Date 08/03/19 Precautions Precautions High fall risk. PT-OP-B Current Condition Start: 08/03/19 15:44 Freq: Status: Active Protocol: Document 08/03/19 14:30 NFW (Rec: 08/03/19 17:01 NFW [id number]) Current Condition History of Current Condition Current Complaints Overall decrease of functional abilities. 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 Pt was hospitalized in rehab for ~ 3 mos one year ago secondary to raheel the flu. Over the past couple of years she has noticed progressive weakness in her LEs and limitations in performing her normal daily activities. Treatment Goals Patient/Caregiver Goals Greater ease getting in and out of car. Be able to travel by plane with . Be able to cook meals again. Prior Functional Status Baseline Function- ADL's Modified Independent Baseline Function- Mobility Modified Independent Current Functional Impairments (Reported) Functional Limitations- ADL's Requires assist with shoes and socks. Functional Limitations- Mobility/Gait Ambulates with FWW, depends heavily onto UEs. Functional Limitations- Work/School Has not been able to cook, sweep the floor, rake the leaves for quite some time. Functional Limitations- Recreation/ Going out to the mall or a Hobbies carnival with her grandkids. Functional Limitations- Other Difficulty getting in and out of the car. PT-OP-C Subjective Start: 08/03/19 15:44 Freq: Status: Active Protocol: Document 10/19/19 12:50 LRN (Rec: 10/19/19 13:38 LRN [id number]) OP-PT Subjective Patient Comments Patient Comments Has new stairs with railing. Has gone up/down stairs 2-3x/ day. Her spouse has been going to work and she has been home by herself. She feels safe going up/down the stairs. Made dinner 3x last week. Standing was the tiring part. Spouse moved the kettles. PT-OP-D Balance Start: 08/03/19 15:44 Freq: Status: Active Protocol: Document 10/07/19 12:51 LRN (Rec: 10/07/19 14:11 LRN [id number]) Balance Tests Francois Balance Test Francois Balance Test Score 33 Francois Impairment Rating 40 to 59% Impaired (Score 23- 33) PT-OP-E Functional Tests Start: 08/03/19 15:44 Freq: Status: Active Protocol: Document 10/07/19 12:51 LRN (Rec: 10/07/19 16:32 LRN [id number]) Functional Tests Timed Up and Go (TUG) Score 46 Comments Pt used FWW, and was specific in proper sitting TUG Impairment Rating 100% Impaired (Score 20) PT-OP-G Mobility & Gait Start: 08/03/19 15:44 Freq: Status: Active Protocol: Document 08/03/19 14:30 NFW (Rec: 08/03/19 17:01 NFW [id number]) OP Mobility Evaluation Bed Mobility Rolling Able to roll side to side with cuing. Supine to and from Sit Independent. Sit to supine, extreme difficulty doing this activity the recommended way (sitting down then rolling to side to back). At home she faces the bed, puts one knee up then reaches forward with hand and grabs mattress/sheets to pull herself forward. She does say she flops down into bed. Transfers Sit to Stand Independent with use of BUEs. Bed to Chair Transfers Independendt with use of BUEs. Car Transfers Did not test, but patient and report that this is a very difficult activity for them to perform. Floor Transfers Did not test, but do not feel patient would be able to lift her weight up off the floor. Functional Movements Lifting and Carrying None Squats No Running Assessment No OP Gait Assessment Gait Gait Assistance Required: Standby Assistance,1 Person Assist Distance (Feet) 50 Assistive Devices Assistive Device Front Wheeled Walker Gait Deviations General Gait Pattern Decreased Stride Length, Decreased Feet Clearance, Flexed Trunk,Wide Based Gait Factors Limiting Gait Function Factors Limiting Gait Function Abnormal Tonal Influences, Decreased Activity Tolerance, Decreased Strength, Incoordination,Limited Range of Motion,Poor Balance,Poor Safety Awareness Comments Gait Comments Gait slow and shuffled especially with left LE. PT-OP-H Neuro Start: 08/03/19 15:44 Freq: Status: Active Protocol: Document 10/05/19 12:48 LRN (Rec: 10/05/19 15:53 LRN [id number]) Vital Signs Blood Pressure Sitting Blood Pressure (90/60-120/80 mmHg) 124/88 H Blood Pressure Source Manual Cuff Comments Vital Signs Comments Taken after being on Biodex for ~3 minutes, pt complained of light headedness. PT-OP-J Posture/Palpation/Skin Start: 08/03/19 15:44 Freq: Status: Active Protocol: Document 08/03/19 14:30 NFW (Rec: 08/03/19 17:01 NFW [id number]) Posture Evaluation Position Standing Head/C-Spine Posture Forward Head T-Spine Posture Increased Kyphosis L-Spine Posture Decreased Lordosis Shoulder Posture (L) Rounded,(R) Rounded Scapula Posture (L) Protracted,(R) Protracted Pelvis Posture (R) Iliac Crest Superior Weight Distribution Weight Shifted Right Hip Posture (L) Externally Rotated,(L) Abducted Knee Posture (R) Genu Recurvatum Skin Assessment Edema Assessment Bilateral Foot Edema Type Pitting Edema Degree 3+ Edema Appearance Firm,Puffy,Taut Comments Significant edema lower leg into ankles and feet, left much moreso than right PT-OP-K Range of Motion Start: 08/03/19 15:44 Freq: Status: Active Protocol: Document 08/03/19 14:30 NFW (Rec: 08/03/19 17:01 NFW [id number]) Hip Goniometric Range of Motion Hip Left Active Hip ROM WFL No Testing Position Supine Flexion w/Knee Flexed 90 Straight Leg Raise 30 Abduction 20 External Rotation 20 Right Active Hip ROM WFL No Testing Position Supine Flexion w/Knee Flexed 90 Straight Leg Raise 60 Abduction 30 External Rotation 30 Hip ROM Limitations Hip ROM Limitations Soft Tissue Tightness,Muscle Weakness,Muscle Tone,Swelling Knee Goniometric Range of Motion Knee Left Knee ROM WFL Yes Right Knee ROM WFL Yes PT-OP-M Strength Start: 08/03/19 15:44 Freq: Status: Active Protocol: Document 08/03/19 14:30 NFW (Rec: 08/03/19 17:01 NFW [id number]) Hip Strength Hip Manual Muscle Testing Left Flexion (L2) 3+ Fair+ Comments Other muscle groups not tested due to difficulty in getting in proper position. Right Flexion (L2) 4 Good Comments Other muscle groups not tested due to difficulty in getting in proper position. Knee Strength Knee Manual Muscle Testing Left Flexion (S2) 3+ Fair+ Extension (L3) 3+ Fair+ Right Flexion (S2) 4 Good Extension (L3) 4 Good Ankle/Foot Strength Ankle and Foot Manual Muscle Testing Left Dorsiflexion (L4) 4 Good Right Dorsiflexion (L4) 4 Good Toe Strength Toe Manual Muscle Testing Left Great Toe Extension 3 Fair Right Great Toe Extension 4 Good PT-OP-Q Treatments Start: 08/03/19 15:44 Freq: Status: Active Protocol: Document 10/19/19 12:50 LRN (Rec: 10/19/19 13:38 LRN [id number]) Therapeutic Activity Therapeutic Activity Modified transfer in/out of car Name Simulating transfer in/out of car Reps/Minutes 15' Comments Pt moves slowly and requires much queing. 1 Name Supine to Sitting Reps/Minutes 10' Comments Discussion of how to transfer in/out of bed. Pt refuses to try due to urinary leakage. Gait Training Gait Activity Stairs Description Stair ambulation Device Used 2 railings Level of Assistance CGA Distance/Duration 4 steps x 3 Treatment Focus training for normal gait as appropriate for safety Comments Pt can amb with alternating gait, but prefers step to gait for safety. 1 Description Walking Device Used FWW Level of Assistance SBA Surface Level Distance/Duration 15' Treatment Focus Lifting feet, proper positioning in walker, not leaning on walker. PT-OP-T Assessment and Plan Start: 08/03/19 15:44 Freq: Status: Active Protocol: Document 10/19/19 12:50 LRN (Rec: 10/19/19 13:38 LRN [id number]) Physical Therapy Assessment Goals Four Impairment Low functional level Short Term Goal (STG) Perform light cooking activities at home. STG Duration 09/14/19 (10/07/19: GOAL MET) Dog Or Horse Racing Official Goal (LTG) Greater ease getting in and out of car. LTG Duration 10/26/19 (10/07/19: Progressing with ex) Three Impairment Poor Balance Retirement Goal (LTG) Improve Francois Balance Score to 20-39% impaired. LTG Duration 10/26/19 (10/07/19: FRANCOIS Balance is 33/56 = 59%) Two Impairment Slow walking pace Short Term Goal (STG) Improve Timed Up and Go Test without the use of assistive devices to 30 seconds. STG Duration 09/14/19 (10/07/19: Worse: TUG w/walker 45 secs) Dog Or Horse Racing Official Goal (LTG) Improve Timed Up and Go Test without use of assistive devices to 15 seconds. LTG Duration 10/26/19 One Impairment Low confidence in functional abilities Short Term Goal (STG) Improve ABC scale score from 60-80% impaired to 40-60% STG Duration 09/14/19 (09/14/19: Goal not met) Retirement Goal (LTG) Improve ABC scale score to 20- 40% impaired LTG Duration 10/26/19 Assessment Summary Assessment Pt is happy with the way she is getting in/out of bed and doesn't want to transfer properly (log roll) due to being afraid of urinary leakage with transferring. She ambulates more quickly without use of a walker, but she drags her L leg when tired . She is able to go up/down stairs safely with use of 2 railings and a step to gait. Pt feels she is doing really well and would be happy to finish in the next couple of visits. Physical Therapy Plan Frequency and Duration Frequency of Treatment 2x/Week Plan of Care Start Date 10/07/19 Plan of Care End Date 01/06/20 Next Visit Focus/Plan Next Note Type Treatment Note Next Visit Plan Assess for DC in 2-3 visits. Focus on car transfer training . If weather appropriate for outdoor training, practice getting in/out of car. Pt needs to improve endurance and balance. Improve speed of gait to improve TUG score. Michel balance activity when pt endurance improves, to increase stride length. Increase reps during standing ex.
--- NOTE | 2019-10-26 13:51 | PT.OTN ---
Current Diagnoses Unspecified abnormalities of gait and mobility (10/26/19) Physical Therapy Treatment Note PT-OP-A Visit Information Start: 08/03/19 15:44 Freq: Status: Active Protocol: Document 10/26/19 12:46 LRN (Rec: 10/26/19 13:46 LRN [id number]) Out-Patient Physical Therapy Visit Information Visit Information Visit Type Treatment Note Visit Start Time 12:46 Visit Stop Time 13:30 Total Visit Minutes 44 Visit Number Number of BUSINESS DATA ANALYST Visits 0 Evaluation Information Evaluation Date 08/03/19 Precautions Precautions High fall risk. PT-OP-B Current Condition Start: 08/03/19 15:44 Freq: Status: Active Protocol: Document 08/03/19 14:30 NFW (Rec: 08/03/19 17:01 NFW [id number]) Current Condition History of Current Condition Current Complaints Overall decrease of functional abilities. 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 Pt was hospitalized in rehab for ~ 3 mos one year ago secondary to raheel the flu. Over the past couple of years she has noticed progressive weakness in her LEs and limitations in performing her normal daily activities. Treatment Goals Patient/Caregiver Goals Greater ease getting in and out of car. Be able to travel by plane with . Be able to cook meals again. Prior Functional Status Baseline Function- ADL's Modified Independent Baseline Function- Mobility Modified Independent Current Functional Impairments (Reported) Functional Limitations- ADL's Requires assist with shoes and socks. Functional Limitations- Mobility/Gait Ambulates with FWW, depends heavily onto UEs. Functional Limitations- Work/School Has not been able to cook, sweep the floor, rake the leaves for quite some time. Functional Limitations- Recreation/ Going out to the mall or a Hobbies carnival with her grandkids. Functional Limitations- Other Difficulty getting in and out of the car. PT-OP-C Subjective Start: 08/03/19 15:44 Freq: Status: Active Protocol: Document 10/26/19 12:46 LRN (Rec: 10/26/19 13:46 LRN [id number]) OP-PT Subjective Patient Comments Patient Comments Spouse states the pt is walking around the house without the walker more. States overall she is better getting in/out of a car, but still has trouble getting her L LE into the car. Patient Questionnaires ABC- Activity Specific Balance Confidence Scale ABC Score 70.63 ABC Functional Impairment 20 to <40% Impaired (Score 61- 80) PT-OP-D Balance Start: 08/03/19 15:44 Freq: Status: Active Protocol: Document 10/07/19 12:51 LRN (Rec: 10/07/19 14:11 LRN [id number]) Balance Tests Francois Balance Test Francois Balance Test Score 33 Francois Impairment Rating 40 to 59% Impaired (Score 23- 33) PT-OP-E Functional Tests Start: 08/03/19 15:44 Freq: Status: Active Protocol: Document 10/21/19 12:49 LRN (Rec: 10/21/19 13:31 LRN [id number]) Functional Tests Timed Up and Go (TUG) Score 55 Comments Pt used FWW, and was specific in proper sitting TUG Impairment Rating 100% Impaired (Score 20) Other TUG w/o walker Name of Test TUG without walker Score 47 seconds Comment 100% Impaired (Score 20+) PT-OP-G Mobility & Gait Start: 08/03/19 15:44 Freq: Status: Active Protocol: Document 08/03/19 14:30 NFW (Rec: 08/03/19 17:01 NFW [id number]) OP Mobility Evaluation Bed Mobility Rolling Able to roll side to side with cuing. Supine to and from Sit Independent. Sit to supine, extreme difficulty doing this activity the recommended way (sitting down then rolling to side to back). At home she faces the bed, puts one knee up then reaches forward with hand and grabs mattress/sheets to pull herself forward. She does say she flops down into bed. Transfers Sit to Stand Independent with use of BUEs. Bed to Chair Transfers Independendt with use of BUEs. Car Transfers Did not test, but patient and report that this is a very difficult activity for them to perform. Floor Transfers Did not test, but do not feel patient would be able to lift her weight up off the floor. Functional Movements Lifting and Carrying None Squats No Running Assessment No OP Gait Assessment Gait Gait Assistance Required: Standby Assistance,1 Person Assist Distance (Feet) 50 Assistive Devices Assistive Device Front Wheeled Walker Gait Deviations General Gait Pattern Decreased Stride Length, Decreased Feet Clearance, Flexed Trunk,Wide Based Gait Factors Limiting Gait Function Factors Limiting Gait Function Abnormal Tonal Influences, Decreased Activity Tolerance, Decreased Strength, Incoordination,Limited Range of Motion,Poor Balance,Poor Safety Awareness Comments Gait Comments Gait slow and shuffled especially with left LE. PT-OP-H Neuro Start: 08/03/19 15:44 Freq: Status: Active Protocol: Document 10/05/19 12:48 LRN (Rec: 10/05/19 15:53 LRN [id number]) Vital Signs Blood Pressure Sitting Blood Pressure (90/60-120/80 mmHg) 124/88 H Blood Pressure Source Manual Cuff Comments Vital Signs Comments Taken after being on Biodex for ~3 minutes, pt complained of light headedness. PT-OP-J Posture/Palpation/Skin Start: 08/03/19 15:44 Freq: Status: Active Protocol: Document 08/03/19 14:30 NFW (Rec: 08/03/19 17:01 NFW [id number]) Posture Evaluation Position Standing Head/C-Spine Posture Forward Head T-Spine Posture Increased Kyphosis L-Spine Posture Decreased Lordosis Shoulder Posture (L) Rounded,(R) Rounded Scapula Posture (L) Protracted,(R) Protracted Pelvis Posture (R) Iliac Crest Superior Weight Distribution Weight Shifted Right Hip Posture (L) Externally Rotated,(L) Abducted Knee Posture (R) Genu Recurvatum Skin Assessment Edema Assessment Bilateral Foot Edema Type Pitting Edema Degree 3+ Edema Appearance Firm,Puffy,Taut Comments Significant edema lower leg into ankles and feet, left much moreso than right PT-OP-K Range of Motion Start: 08/03/19 15:44 Freq: Status: Active Protocol: Document 08/03/19 14:30 NFW (Rec: 08/03/19 17:01 NFW [id number]) Hip Goniometric Range of Motion Hip Left Active Hip ROM WFL No Testing Position Supine Flexion w/Knee Flexed 90 Straight Leg Raise 30 Abduction 20 External Rotation 20 Right Active Hip ROM WFL No Testing Position Supine Flexion w/Knee Flexed 90 Straight Leg Raise 60 Abduction 30 External Rotation 30 Hip ROM Limitations Hip ROM Limitations Soft Tissue Tightness,Muscle Weakness,Muscle Tone,Swelling Knee Goniometric Range of Motion Knee Left Knee ROM WFL Yes Right Knee ROM WFL Yes PT-OP-M Strength Start: 08/03/19 15:44 Freq: Status: Active Protocol: Document 08/03/19 14:30 NFW (Rec: 08/03/19 17:01 NFW [id number]) Hip Strength Hip Manual Muscle Testing Left Flexion (L2) 3+ Fair+ Comments Other muscle groups not tested due to difficulty in getting in proper position. Right Flexion (L2) 4 Good Comments Other muscle groups not tested due to difficulty in getting in proper position. Knee Strength Knee Manual Muscle Testing Left Flexion (S2) 3+ Fair+ Extension (L3) 3+ Fair+ Right Flexion (S2) 4 Good Extension (L3) 4 Good Ankle/Foot Strength Ankle and Foot Manual Muscle Testing Left Dorsiflexion (L4) 4 Good Right Dorsiflexion (L4) 4 Good Toe Strength Toe Manual Muscle Testing Left Great Toe Extension 3 Fair Right Great Toe Extension 4 Good PT-OP-Q Treatments Start: 08/03/19 15:44 Freq: Status: Active Protocol: Document 10/26/19 12:46 LRN (Rec: 10/26/19 13:46 LRN [id number]) Therapeutic Exercises Sitting Exercises Sit to Stand Sitting Exercise Name Sit to Stand Reps/Minutes 10x Therapeutic Activity Therapeutic Activity Modified transfer in/out of car Name Simulating transfer in/out of car Reps/Minutes 15' Comments Pt moves slowly and requires much queing. Gait Training Gait Activity 1 Description Walking Device Used FWW Level of Assistance SBA Surface Level Distance/Duration 15' Treatment Focus Lifting feet, proper positioning in walker, not leaning on walker. Neuro Re-Education Treatment Balance Activities hurdles Details Stepping over hurdles Equipment ll bars Reps/Duration 10' PT-OP-T Assessment and Plan Start: 08/03/19 15:44 Freq: Status: Active Protocol: Document 10/26/19 12:46 LRN (Rec: 10/26/19 13:46 LRN [id number]) Physical Therapy Assessment Goals Four Impairment Low functional level Short Term Goal (STG) Perform light cooking activities at home. STG Duration 09/14/19 (10/07/19: GOAL MET) Application Systems Engineer Goal (LTG) Greater ease getting in and out of car. LTG Duration 10/26/19 (10/21/19: GOAL MET) Three Impairment Poor Balance Correction Goal (LTG) Improve Francois Balance Score to 20-39% impaired. LTG Duration 10/26/19 (10/07/19: FRANCOIS Balance is 33/56 = 40%-59% Impaired) Two Impairment Slow walking pace Short Term Goal (STG) Improve Timed Up and Go Test without the use of assistive devices to 30 seconds. (: TUG w/FWW is 47 secs) STG Duration 09/14/19 (10/21/19: Worse: TUG w/walker 47 secs) Correction Goal (LTG) Improve Timed Up and Go Test without use of assistive devices to 15 seconds. (10/21/19: TUG w/o FWW is 55 secs) LTG Duration 10/26/19 (10/21/19: Goal Not Met) One Impairment Low confidence in functional abilities Short Term Goal (STG) Improve ABC scale score from 60-80% impaired to 40-60% STG Duration 09/14/19 (10/26/19: GOAL MET, pt 70.63% confident). Correction Goal (LTG) Improve ABC scale score to 20- 40% impaired LTG Duration 10/26/19 (10/26/19: GOAL MET, pt 70.63% confident). Progress Towards Goals Progress Towards Goals Slow Progress due to Activity Tolerance Progress Comments Goal 1: STG & LTG MET. Goal 2: STG & LTG: NOT MET. Goal 3: GOAL NOT MET. Goal 4: STG & LTG MET. Assessment Summary Assessment Pt function has improved per ABC score. She is tired today is moving very slowly, and would like to defer FRANCOIS balance and/or Tinetti assessment. Pt was able to lift her L leg over a block with ease several times. Pt is ready for DC next visit after Balance assessment. Physical Therapy Plan Frequency and Duration Frequency of Treatment 2x/Week Plan of Care Start Date 10/07/19 Plan of Care End Date 01/06/20 Next Visit Focus/Plan Next Note Type Discharge Summary Next Visit Plan Assess FRANCOIS & TUG for DC. Practice car transfer training . If weather appropriate for outdoor training, practice getting in/out of car. Pt endurance and balance needed to improve safety with gait. Michel balance activity to increase stride length. Increase reps during standing ex.
--- NOTE | 2019-10-28 13:02 | PT-OP ANOTE ---
Pt spouse attends to inform that the pt has hurt her ankle and can't walk. He is not able to reschedule due to a planned vacation, and requests discharge of pt as previously planned
--- NOTE | 2019-10-28 13:10 | PT.OPDS ---
Current Diagnoses Unspecified abnormalities of gait and mobility (10/26/19) Visit Care Team Role Provider Type Derrick Dooley MD Attending Provider Physician Primary Care Provider Specialty: Internal Medicine Address: [address] [place] [address], [facility] Email: [email or web address] Visit Number Visit Number Discharge Summary PT-OP-B Current Condition Start: 08/03/19 15:44 Freq: Status: Active Protocol: Document 08/03/19 14:30 NFW (Rec: 08/03/19 17:01 NFW [id number]) Current Condition History of Current Condition Current Complaints Overall decrease of functional abilities. 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 Pt was hospitalized in rehab for ~ 3 mos one year ago secondary to raheel the flu. Over the past couple of years she has noticed progressive weakness in her LEs and limitations in performing her normal daily activities. Treatment Goals Patient/Caregiver Goals Greater ease getting in and out of car. Be able to travel by plane with . Be able to cook meals again. Prior Functional Status Baseline Function- ADL's Modified Independent Baseline Function- Mobility Modified Independent Current Functional Impairments (Reported) Functional Limitations- ADL's Requires assist with shoes and socks. Functional Limitations- Mobility/Gait Ambulates with FWW, depends heavily onto UEs. Functional Limitations- Work/School Has not been able to cook, sweep the floor, rake the leaves for quite some time. Functional Limitations- Recreation/ Going out to the mall or a Hobbies carnival with her grandkids. Functional Limitations- Other Difficulty getting in and out of the car. PT-OP-C Subjective Start: 08/03/19 15:44 Freq: Status: Active Protocol: Document 10/26/19 12:46 LRN (Rec: 10/26/19 13:46 LRN [id number]) OP-PT Subjective Patient Comments Patient Comments Spouse states the pt is walking around the house without the walker more. States overall she is better getting in/out of a car, but still has trouble getting her L LE into the car. Patient Questionnaires ABC- Activity Specific Balance Confidence Scale ABC Score 70.63 ABC Functional Impairment 20 to <40% Impaired (Score 61- 80) PT-OP-D Balance Start: 08/03/19 15:44 Freq: Status: Active Protocol: Document 10/07/19 12:51 LRN (Rec: 10/07/19 14:11 LRN [id number]) Balance Tests Francois Balance Test Francois Balance Test Score 33 Francois Impairment Rating 40 to 59% Impaired (Score 23- 33) PT-OP-E Functional Tests Start: 08/03/19 15:44 Freq: Status: Active Protocol: Document 10/21/19 12:49 LRN (Rec: 10/21/19 13:31 LRN [id number]) Functional Tests Timed Up and Go (TUG) Score 55 Comments Pt used FWW, and was specific in proper sitting TUG Impairment Rating 100% Impaired (Score 20) Other TUG w/o walker Name of Test TUG without walker Score 47 seconds Comment 100% Impaired (Score 20+) PT-OP-G Mobility & Gait Start: 08/03/19 15:44 Freq: Status: Active Protocol: Document 08/03/19 14:30 NFW (Rec: 08/03/19 17:01 NFW [id number]) OP Mobility Evaluation Bed Mobility Rolling Able to roll side to side with cuing. Supine to and from Sit Independent. Sit to supine, extreme difficulty doing this activity the recommended way (sitting down then rolling to side to back). At home she faces the bed, puts one knee up then reaches forward with hand and grabs mattress/sheets to pull herself forward. She does say she flops down into bed. Transfers Sit to Stand Independent with use of BUEs. Bed to Chair Transfers Independendt with use of BUEs. Car Transfers Did not test, but patient and report that this is a very difficult activity for them to perform. Floor Transfers Did not test, but do not feel patient would be able to lift her weight up off the floor. Functional Movements Lifting and Carrying None Squats No Running Assessment No OP Gait Assessment Gait Gait Assistance Required: Standby Assistance,1 Person Assist Distance (Feet) 50 Assistive Devices Assistive Device Front Wheeled Walker Gait Deviations General Gait Pattern Decreased Stride Length, Decreased Feet Clearance, Flexed Trunk,Wide Based Gait Factors Limiting Gait Function Factors Limiting Gait Function Abnormal Tonal Influences, Decreased Activity Tolerance, Decreased Strength, Incoordination,Limited Range of Motion,Poor Balance,Poor Safety Awareness Comments Gait Comments Gait slow and shuffled especially with left LE. PT-OP-H Neuro Start: 08/03/19 15:44 Freq: Status: Active Protocol: Document 10/05/19 12:48 LRN (Rec: 10/05/19 15:53 LRN [id number]) Vital Signs Blood Pressure Sitting Blood Pressure (90/60-120/80 mmHg) 124/88 H Blood Pressure Source Manual Cuff Comments Vital Signs Comments Taken after being on Biodex for ~3 minutes, pt complained of light headedness. PT-OP-J Posture/Palpation/Skin Start: 08/03/19 15:44 Freq: Status: Active Protocol: Document 08/03/19 14:30 NFW (Rec: 08/03/19 17:01 NFW [id number]) Posture Evaluation Position Standing Head/C-Spine Posture Forward Head T-Spine Posture Increased Kyphosis L-Spine Posture Decreased Lordosis Shoulder Posture (L) Rounded,(R) Rounded Scapula Posture (L) Protracted,(R) Protracted Pelvis Posture (R) Iliac Crest Superior Weight Distribution Weight Shifted Right Hip Posture (L) Externally Rotated,(L) Abducted Knee Posture (R) Genu Recurvatum Skin Assessment Edema Assessment Bilateral Foot Edema Type Pitting Edema Degree 3+ Edema Appearance Firm,Puffy,Taut Comments Significant edema lower leg into ankles and feet, left much moreso than right PT-OP-K Range of Motion Start: 08/03/19 15:44 Freq: Status: Active Protocol: Document 08/03/19 14:30 NFW (Rec: 08/03/19 17:01 NFW [id number]) Hip Goniometric Range of Motion Hip Left Active Hip ROM WFL No Testing Position Supine Flexion w/Knee Flexed 90 Straight Leg Raise 30 Abduction 20 External Rotation 20 Right Active Hip ROM WFL No Testing Position Supine Flexion w/Knee Flexed 90 Straight Leg Raise 60 Abduction 30 External Rotation 30 Hip ROM Limitations Hip ROM Limitations Soft Tissue Tightness,Muscle Weakness,Muscle Tone,Swelling Knee Goniometric Range of Motion Knee Left Knee ROM WFL Yes Right Knee ROM WFL Yes PT-OP-M Strength Start: 08/03/19 15:44 Freq: Status: Active Protocol: Document 08/03/19 14:30 NFW (Rec: 08/03/19 17:01 NFW [id number]) Hip Strength Hip Manual Muscle Testing Left Flexion (L2) 3+ Fair+ Comments Other muscle groups not tested due to difficulty in getting in proper position. Right Flexion (L2) 4 Good Comments Other muscle groups not tested due to difficulty in getting in proper position. Knee Strength Knee Manual Muscle Testing Left Flexion (S2) 3+ Fair+ Extension (L3) 3+ Fair+ Right Flexion (S2) 4 Good Extension (L3) 4 Good Ankle/Foot Strength Ankle and Foot Manual Muscle Testing Left Dorsiflexion (L4) 4 Good Right Dorsiflexion (L4) 4 Good Toe Strength Toe Manual Muscle Testing Left Great Toe Extension 3 Fair Right Great Toe Extension 4 Good PT-OP-T Assessment and Plan Start: 08/03/19 15:44 Freq: Status: Active Protocol: Document 10/28/19 13:06 LRN (Rec: 10/28/19 13:10 LRN [id number]) Physical Therapy Assessment Goals Four Impairment Low functional level Short Term Goal (STG) Perform light cooking activities at home. STG Duration 09/14/19 (10/07/19: GOAL MET) Memory Care Program Resident Goal (LTG) Greater ease getting in and out of car. LTG Duration 10/26/19 (10/21/19: GOAL MET) Three Impairment Poor Balance Memory Care Program Resident Goal (LTG) Improve Francois Balance Score to 20-39% impaired. LTG Duration 10/26/19 (10/07/19: FRANCOIS Balance is 33/56 = 40%-59% Impaired) Two Impairment Slow walking pace Short Term Goal (STG) Improve Timed Up and Go Test without the use of assistive devices to 30 seconds. (: TUG w/FWW is 47 secs) STG Duration 09/14/19 (10/21/19: Worse: TUG w/walker 47 secs) Memory Care Program Resident Goal (LTG) Improve Timed Up and Go Test without use of assistive devices to 15 seconds. (10/21/19: TUG w/o FWW is 55 secs) LTG Duration 10/26/19 (10/21/19: Goal Not Met) One Impairment Low confidence in functional abilities Short Term Goal (STG) Improve ABC scale score from 60-80% impaired to 40-60% STG Duration 09/14/19 (1/28/20: GOAL MET, pt 70.63% confident). Memory Care Program Resident Goal (LTG) Improve ABC scale score to 20- 40% impaired LTG Duration 10/26/19 (10/26/19: GOAL MET, pt 70.63% confident). Progress Towards Goals Progress Towards Goals Slow Progress due to Activity Tolerance Progress Comments Goal 1: STG & LTG MET. Goal 2: STG & LTG: NOT MET. Goal 3: GOAL NOT MET. Goal 4: STG & LTG MET. Assessment Summary Assessment Pt has made some progress overall. The pt was unavailable for final assessment due to new ankle injury. Physical Therapy Plan Discharge Physical Therapy Discharge Reasons Patient Request Discharge Comments Pt not able to attend last visit today due to new injury to ankle, per spouse. The pt and spouse are leaving on a trip and will not be returning to therapy; therefore pt will be discharged from therapy today as planned. Pt was unavailable for final assessment.
== END 2019-10-28 14:01 | disposition home or self-care (01) ==
LOC: PHYS 12:45
PROVIDERS: PCP Internal Medicine; Visit Provider Internal Medicine
DX: R26.9 Unspecified abnormalities of gait and mobility (principal)
CPT/HCPCS: 97110; 97112; 97116; 97163; 97530

== ENCOUNTER → 2019-12-01 19:11 | Outpatient (ROUT) | payer MEDICARE, SELFPAY ==
[2018-03-22 19:29] VITALS: BMI 32.7
[2019-12-01 19:22] LABS: Aspartate Aminotransferase 23 IU/L (14-36); Blood Urea Nitrogen 15 mg/dL (7-17); Calcium 9.4 mg/dL (8.4-10.2); Carbon Dioxide 27 mmol/L (22-32); Chloride 105 mmol/L (98-107); Estimated Glomerular Filt Rate > 60.0 mL/min (>60); Glucose 79 mg/dL (80-110); HEMOLYSIS < 15 (0-50); Potassium 4.8 mmol/L (3.4-5.1); Sodium 140 mmol/L (137-145)
[2019-12-01 19:53] LABS: TSH w/ Reflex to FT4 2.39 uIU/mL (0.47-4.68)
[2019-12-01 20:29] LABS: Vitamin B12 530 pg/mL (239-931)
== END ==
PROVIDERS: PCP Internal Medicine; Visit Provider Internal Medicine
DX: E53.8 Deficiency of other specified B group vitamins (principal); I10 Essential (primary) hypertension; E78.2 Mixed hyperlipidemia; E03.9 Hypothyroidism, unspecified
CPT/HCPCS: 80048; 82607; 84443; 84450

== ENCOUNTER → 2020-06-15 15:44 | Outpatient (ROUT) | payer MEDICARE, SELFPAY ==
[2018-03-22 19:29] VITALS: BMI 32.7
[2020-06-15 16:19] LABS: Aspartate Aminotransferase 25 IU/L (14-36); BUN Creatinine Ratio 29.3 (6-22); Blood Urea Nitrogen 17 mg/dL (7-17); Calcium 9.4 mg/dL (8.4-10.2); Carbon Dioxide 27 mmol/L (22-32); Chloride 105 mmol/L (98-107); Cholesterol 146 mg/dL (140-199); Estimated Glomerular Filt Rate > 60.0 mL/min (>60); Glucose 87 mg/dL (80-110); HDL Cholesterol 50 mg/dL (40-60); HEMOLYSIS 18 (0-50); LDL Cholesterol Calculated 61 mg/dL (<100); Potassium 4.6 mmol/L (3.4-5.1); Sodium 139 mmol/L (137-145); Triglycerides 177 mg/dL (35-150)
== END ==
PROVIDERS: PCP Internal Medicine; Visit Provider Internal Medicine
DX: M81.0 Age-related osteoporosis without current pathological fracture (principal); E78.2 Mixed hyperlipidemia
CPT/HCPCS: 80048; 80061; 84450

== ENCOUNTER 2020-08-17 17:23 | Emergency (ER) | payer MEDICARE, SELFPAY ==
[2018-03-22 19:29] VITALS: BMI 32.7
[2020-08-17 17:29] VITALS: BP 178/96; PULSE 90; RESP 16; TEMP 36.8; O2SAT 94
--- NOTE | 2020-08-17 17:37 | DI.US.S_ITS ---
PROCEDURE: US PERIPH VENOUS LOW EXTREM LT INDICATIONS: rule out dvt,sent by pcp TECHNIQUE: Real-time imaging, as well as color and pulse Doppler interrogation, were performed of the lower extremity deep veins from the inguinal ligament to the popliteal fossa. COMPARISON: None. FINDINGS: The common femoral, femoral and popliteal veins are normally compressible, and free of intraluminal thrombus. Color and pulse Doppler demonstrate normal phasic intraluminal flow. There is normal augmentation response to distal compression maneuver. IMPRESSION: No sonographic evidence of DVT. Dictated by: Andrew Ramirez M.D. on 08/17/2020 at 18:20 Approved by: Andrew Ramirez M.D. on 08/17/2020 at 18:22
== END 2020-08-17 19:40 | disposition left against medical advice (07) ==
PROVIDERS: Emergency Provider Emergency Medicine; PCP Internal Medicine
DX: M79.605 Pain in left leg (principal)
CPT/HCPCS: 93971; 99281

== ENCOUNTER → 2020-12-14 15:08 | Outpatient (ROUT) | payer OTHER, SELFPAY ==
[2018-03-22 19:29] VITALS: BMI 32.7
[2020-12-14 16:09] LABS: Blood Urea Nitrogen 18 mg/dL (7-17); Calcium 9.5 mg/dL (8.4-10.2); Carbon Dioxide 27 mmol/L (22-32); Chloride 104 mmol/L (98-107); Estimated Glomerular Filt Rate > 60.0 mL/min (>60); Glucose 97 mg/dL (80-110); HEMOLYSIS 19 (0-50); Potassium 4.5 mmol/L (3.4-5.1); Sodium 140 mmol/L (137-145)
[2020-12-14 16:36] LABS: TSH w/ Reflex to FT4 2.95 uIU/mL (0.47-4.68)
== END ==
PROVIDERS: PCP Internal Medicine; Visit Provider Internal Medicine
DX: I10 Essential (primary) hypertension (principal); E03.9 Hypothyroidism, unspecified
CPT/HCPCS: 80048; 84443